=== PATIENT | male | born 1935 | race Caucasian/White ===

== ENCOUNTER 2020-01-30 13:50 | Inpatient (IN) | payer MEDICARE, OTHER ==
[~2020-01-30] VITALS: Ht 172.7 cm; Wt 78.7 kg
[2020-01-30] MEDS ORDERED: 0.9 % SODIUM CHLORIDE 10 ML DISP.SYRIN. IV PRN (14:30)
[2020-01-30] MEDS ORDERED: IV NORMAL SALINE 1,000ML 1,000 ML IV ONE ×3 (14:30→16:45)
[2020-01-30] MEDS ORDERED: ONDANSETRON PF 4 MG/2 ML VIAL. IVP ONE (14:30)
[2020-01-30] MEDS ORDERED: FAMOTIDINE 20 MG/2 ML VIAL IVP ONE (14:30)
--- NOTE | 2020-01-30 14:37 | PHYS DOC ---
Past History Past Medical History: CAD, Cancer, Dementia, Diverticulitis, Diabetes, Heart Disease, TIA, Other Additional Past Medical Histor: hyponatremia, prostate cancer, cataracts, alzheimers, shingles. Past Surgical History: Cancer Surgery, Cervical Fusion, Coronary Bypass Surgery, Pacemaker Additional Past Surgical Histo: TURP, pacemaker, vertebroplasty, Alcohol Use: None Adult General Chief Complaint Chief Complaint: DIARRHEA HPI HPI Patient is a 85-year-old male patient with history of CAD with open heart surgery years ago, diabetes type 2, hypertension, diverticulitis, constipation, dementia, who presents to the ED today to be evaluated for weakness, diarrhea and hyponatremia. Patient's daughter is doing most of the pain. Because patient is demented. She states patient fell down last week, he was seen by the PCP and was noted to have hyponatremia. They were able to fix his hyponatremia. He was sent home on he has been weak since then. She also reports patient obsessed about his bowel movements and has been using bowel prep including lactulose. He has had diarrhea since yesterday. Daughter denies patient having any bloody stools. She is concerned with dehydrated. Patient denies any abdominal pain, nausea or vomiting. Review of Systems Review of Systems Constitutional: Reports generalized weakness. Denies fever or chills [] Eyes: Denies change in visual acuity, redness, or eye pain [] HENT: Denies nasal congestion or sore throat [] Respiratory: Denies cough or shortness of breath [] Cardiovascular: No additional information not addressed in HPI [] GI: Reports diarrhea. Denies abdominal pain, nausea, vomiting, bloody stools : Denies dysuria or hematuria [] Musculoskeletal: Denies back pain or joint pain [] Integument: Denies rash or skin lesions [] Neurologic: Denies headache, focal weakness or sensory changes [] All other systems were reviewed and found to be within normal limits, except as documented in this note. Current Medications Current Medications Current Medications Medications (Trade) Dose Ordered Sig/Susy Start Time Stop Time Status Last Admin Dose Admin Famotidine (Pepcid Vial) 20 mg 1X ONCE 01/30/20 14:30 01/30/20 14:31 DC Ondansetron HCl (Zofran) 4 mg 1X ONCE 01/30/20 14:30 01/30/20 14:31 DC Sodium Chloride (Normal Saline Flush) 10 ml QSHIFT PRN 01/30/20 14:30 Allergies Allergies Allergies Coded Allergies Type Severity Reaction Last Updated Verified Penicillins Allergy Unknown 01/30/20 Yes hydrocodone Allergy Unknown 01/30/20 Yes Physical Exam Physical Exam Constitutional: Well developed, well nourished, no acute distress, non-toxic appearance. [] HENT: Normocephalic, atraumatic, bilateral external ears normal, oropharynx moist, no oral exudates, nose normal. [place] Eyes: PERRLA, EOMI, conjunctiva normal, no discharge. [] Neck: Normal range of motion, no tenderness, supple, no stridor. [] Cardiovascular: Old healed surgical incision noted midline chest. Heart rate regular rhythm Lungs & Thorax: Rales to posterior lung bases Abdomen: Bowel sounds normal, soft, rounded distended abdomen, hyperresonance, no tenderness, no masses, no pulsatile masses. [] Skin: Warm, dry, no erythema, no rash. [] Back: No tenderness, no CVA tenderness. [] Extremities: No tenderness, no cyanosis, no clubbing, ROM intact, no edema. [] Neurologic: Alert and oriented X 2-3, normal motor function, normal sensory function, no focal deficits noted. [] Psychologic: Affect normal, judgement normal, mood normal. [] Current Patient Data Vital Signs Vital Signs Date Time Temp Pulse Resp B/P (MAP) Pulse Ox O2 Delivery O2 Flow Rate FiO2 01/30/20 14:05 98.0 85 24 176/93 (120) 94 Room Air EKG EKG [] Radiology/Procedures Radiology/Procedures []PROCEDURE: CHEST AP ONLY INDICATION: Reason: weakness / Spl. Instructions: / History: COMPARISON: None. FINDINGS: Single view of chest obtained. Poststernotomy changes with surgical clips at the mediastinum as well as pacemaker. Degenerative changes of the shoulders. Patchy opacities within the bilateral lungs IMPRESSION: * Patchy opacities within the bilateral lungs. Would correlate with symptoms since infectious etiology could have this appearance. Given the interstitial component superimposed mild edema is also not excluded. Electronically signed by: Dorita Ford MD (01/30/2020 4:41 PM) [id number] DICTATED AND SIGNED BY: DORITA FORD MD DATE: 11/21/20 1641 CC: LUCRECIA DO APRN; DONOVAN LAWTON ~MTH0 0 PROCEDURE: CT ABD PELV W/ IV CONTRST ONLY INDICATION: Reason: distended abd, diarrhea, hx of diverticulitis / Spl. Instructions: OMNI 300 60ML , GFR 45ML / History: . COMPARISON: None. TECHNIQUE: Axial CT images obtained through the abdomen and pelvis with contrast. One or more of the following individualized dose reduction techniques were utilized for this examination: 1. Automated exposure control; 2. Adjustment of the mA and/or kV according to patient size; 3. Use of iterative reconstruction technique. FINDINGS: Groundglass opacities at the lung bases with some peripheral reticulation and interstitial thickening. There is a couple of nodules at the right lung base measuring less than 6 mm. Fat-containing left greater than right inguinal hernia. Severe calcific atherosclerosis. Pacemaker leads at partially visualized chest base. Minimal contrast in the aortic lumen limits evaluation. No intrahepatic bile duct dilation. Gallbladder is contracted. No peripancreatic fluid collection. Spleen unremarkable. Exophytic left renal cyst. Subcentimeter low-density lesion lower pole the left kidney which is a common finding but not well characterized on this exam. Urinary bladder is well distended. Nonspecific perinephric stranding bilaterally. No hydronephrosis. Degenerative changes of the bilateral hips and spine. Colonic diverticulosis. The suspected appendix does not appear dilated. Fat-containing umbilical hernia. Osseous demineralization. Right sixth rib fracture. Compression fracture at T11 with retropulsion and kyphoplasty suspected diverticulum anterior aspect of urinary bladder. IMPRESSION: * No evidence of bowel obstruction or appendicitis. * Colonic diverticulosis without definite adjacent inflammatory changes. * Severe calcific atherosclerosis. * Ground glass and interstitial opacities at lung bases. Could be infectious in nature or secondary to edema. A portion could be chronic as well. * There are couple of lung nodules at the right lung base. * Right sixth rib fracture of unknown age. Fleischner Society recommendations for solitary solid lung nodule follow up.: In a low risk patient: <6mm - No follow up required. 6-8mm - 6-[address], then CT at 18-24 months. >8mm - CT at 3 months, PET/CT or tissue sampling. In a high risk patient (history of smoking or other known risk factors): <6mm - Follow up CT at 12 months. 6-8mm - 6-[address], then CT at 18-24 months. >8mm - CT at 3 months, PET/CT or tissue sampling. Fleischner Society recommendations for multiple solid lung nodule follow up.: In a low risk patient: <6mm - No follow up required. 6-8mm - 3-[address], then CT at 18-24 months. >8mm - CT at 3-6 months, then at 18-24 months. PET/CT or tissue sampling based on most suspicious nodule. In a high risk patient (history of smoking or other known risk factors): <6mm - Follow up CT at 12 months. 6-8mm - 3-[address], then CT at 18-24 months. >8mm - CT at 3-6 months, PET/CT or tissue sampling option based on most suspicious nodule. Electronically signed by: Dorita Ford MD (01/30/2020 4:14 PM) [id number] DICTATED AND SIGNED BY: DORITA FORD MD DATE: 01/30/20 1614 CC: LUCRECIA DO APRN; DONOVAN LAWTON ~MTH0 0 Heart Score Risk Factors: Risk Factors: DM, Current or recent (<one month) smoker, HTN, HLP, family history of CAD, obesity. Risk Scores: Risk Factors: DM, Current or recent (<one month) smoker, HTN, HLP, family history of CAD, obesity. Course & Med Decision Making Course & Med Decision Making Pertinent Labs and Imaging studies reviewed. (See chart for details) This is a 85-year-old male patient with history of dementia presenting to the ED today with a daughter who reports patient fell down last week, was seen by the PCP and diagnosed with hyponatremia. She states patient has been weak since the fall. She states patient has also been using bowel preps for chronic constipation and is currently having loose stools since yesterday. CBC with a normal WBC, hemoglobin 12.0 hematocrit 35.7, unknown if it is patient's baseline. CMP with sodium of 119, creatinine 1.2, BUN 21 glucose 307, patient's sodium corrected for glucose is 122. Lactic 4.3, BNP 5559 He was given a liter of fluid in the ED conservatively because he appears to be already fluid overloaded CT of the abdomen and pelvis was negative for any acute findings, noted for diverticulosis, ground glass and interstitial opacities at lung bases. Could be infectious in nature or secondary to edema, lung nodules at the right lung base and right sixth rib fracture of unknown age. Patient was tested for COVID-19. He was started on Rocephin and azithromycin. Spoke with Dr. Julius Castaneda Disclaimer Leonel Disclaimer This electronic medical record was generated, in whole or in part, using a voice recognition dictation system. Departure Departure: Impression: Primary Impression: Hyponatremia Additional Impressions: Diarrhea Elevated lactic acid level Hyperglycemia Person under investigation for COVID-19 Disposition: ADMITTED INPT THIS HOSP Condition: STABLE Referrals: DONOVAN LAWTON (PCP) Problem Qualifiers Additional Impressions: Diarrhea Diarrhea type: unspecified type Qualified Codes: R19.7 - Diarrhea, unspecified MUTUNGALUCRECIA DRIER ATTENDANT Jan 30, 2020 14:37
--- NOTE | 2020-01-30 14:58 | EKG ---
[facility] ED [facility] [address] [place] [id number] Test Date: 2020-01-30 Test Time: 14:36:27 Pat Name: ASHLEY MUNGUIA Department: Room: Gender: M [employer]: : 1935 Requested By: LUCRECIA DO Order Number: [id number] Reading MD: Measurements Intervals Lynn Rate: 84 P: 90 NM: 310 QRS: 44 QRSD: 94 T: 54 QT: 384 QTc: 457 Interpretive Statements SINUS RHYTHM PROLONGED NM INTERVAL QRS(T) CONTOUR ABNORMALITY CONSISTENT WITH ANTEROSEPTAL INFARCT PROBABLY OLD ABNORMAL ECG RI6.02 No previous ECG available for comparison
[2020-01-30] MEDS ORDERED: IOHEXOL 300 MG/ML 75 ML VIAL. IV ONE (15:00)
[2020-01-30 15:04] LABS: BASO % 0 % (0-3); EOS % 0 % (0-3); HEMATOCRIT 35.7 % (39.0-53.0); LYMPH # 0.5 x10^3/uL (1.0-4.8); LYMPH % 5 % (24-48); MEAN CORPUSCULAR HEMOGLOBIN 30 pg (25-35); MEAN CORPUSCULAR HGB CONC 34 g/dL (31-37); MEAN CORPUSCULAR VOLUME 90 fL (79-100); MONO # 1.7 x10^3/uL (0.0-1.1); MONO % 16 % (0-9); NEUT # 8.3 x10^3uL (1.8-7.7); NEUT % 79 % (31-73); PLATELET COUNT 268 x10^3/uL (140-400); RED BLOOD COUNT 3.99 x10^6/uL (4.30-5.70); RED CELL DISTRIBUTION WIDTH 13.2 % (11.5-14.5); WHITE BLOOD COUNT 10.6 x10^3/uL (4.0-11.0)
[2020-01-30 15:27] LABS: ALBUMIN 2.8 g/dL (3.4-5.0); ALBUMIN/GLOBULIN RATIO 0.7 (1.0-1.7); CALCIUM 8.9 mg/dL (8.5-10.1); CREATININE 1.4 mg/dL (0.7-1.3); GFR 47.9; MAGNESIUM 1.4 mg/dL (1.8-2.4); POTASSIUM 4.9 mmol/L (3.5-5.1); TOTAL BILIRUBIN 0.4 mg/dL (0.2-1.0)
--- NOTE | 2020-01-30 16:17 | RAD ---
INDICATION: Reason: distended abd, diarrhea, hx of diverticulitis / Spl. Instructions: OMNI 300 60ML , GFR 45ML / History: . COMPARISON: None. TECHNIQUE: Axial CT images obtained through the abdomen and pelvis with contrast. One or more of the following individualized dose reduction techniques were utilized for this examination: 1. Automated exposure control; 2. Adjustment of the mA and/or kV according to patient size; 3. Use of iterative reconstruction technique. FINDINGS: Groundglass opacities at the lung bases with some peripheral reticulation and interstitial thickening. There is a couple of nodules at the right lung base measuring less than 6 mm. Fat-containing left greater than right inguinal hernia. Severe calcific atherosclerosis. Pacemaker leads at partially visualized chest base. Minimal contrast in the aortic lumen limits evaluation. No intrahepatic bile duct dilation. Gallbladder is contracted. No peripancreatic fluid collection. Spleen unremarkable. Exophytic left renal cyst. Subcentimeter low-density lesion lower pole the left kidney which is a common finding but not well characterized on this exam. Urinary bladder is well distended. Nonspecific perinephric stranding bilaterally. No hydronephrosis. Degenerative changes of the bilateral hips and spine. Colonic diverticulosis. The suspected appendix does not appear dilated. Fat-containing umbilical hernia. Osseous demineralization. Right sixth rib fracture. Compression fracture at T11 with retropulsion and kyphoplasty suspected diverticulum anterior aspect of urinary bladder. IMPRESSION: * No evidence of bowel obstruction or appendicitis. * Colonic diverticulosis without definite adjacent inflammatory changes. * Severe calcific atherosclerosis. * Ground glass and interstitial opacities at lung bases. Could be infectious in nature or secondary to edema. A portion could be chronic as well. * There are couple of lung nodules at the right lung base. * Right sixth rib fracture of unknown age. Fleischner Society recommendations for solitary solid lung nodule follow up.: In a low risk patient: <6mm - No follow up required. 6-8mm - 6-[address], then CT at 18-24 months. >8mm - CT at 3 months, PET/CT or tissue sampling. In a high risk patient (history of smoking or other known risk factors): <6mm - Follow up CT at 12 months. 6-8mm - 6-[address], then CT at 18-24 months. >8mm - CT at 3 months, PET/CT or tissue sampling. Fleischner Society recommendations for multiple solid lung nodule follow up.: In a low risk patient: <6mm - No follow up required. 6-8mm - 3-[address], then CT at 18-24 months. >8mm - CT at 3-6 months, then at 18-24 months. PET/CT or tissue sampling based on most suspicious nodule. In a high risk patient (history of smoking or other known risk factors): <6mm - Follow up CT at 12 months. 6-8mm - 3-[address], then CT at 18-24 months. >8mm - CT at 3-6 months, PET/CT or tissue sampling option based on most suspicious nodule. Electronically signed by: Bill Krishnamurthy MD (01/30/2020 4:14 PM) [id number]
[2020-01-30 16:31] LABS: % LYMPHS 12 % (24-48); % MONOS 13 % (0-10); % SEGS 75 % (35-66)
[2020-01-30 16:32] LABS: PLT ESTIMATE ADEQUATE (ADEQUATE)
--- NOTE | 2020-01-30 16:44 | RAD ---
INDICATION: Reason: weakness / Spl. Instructions: / History: COMPARISON: None. FINDINGS: Single view of chest obtained. Poststernotomy changes with surgical clips at the mediastinum as well as pacemaker. Degenerative changes of the shoulders. Patchy opacities within the bilateral lungs IMPRESSION: * Patchy opacities within the bilateral lungs. Would correlate with symptoms since infectious etiology could have this appearance. Given the interstitial component superimposed mild edema is also not excluded. Electronically signed by: Bill Krishnamurthy MD (01/30/2020 4:41 PM) [id number]
[2020-01-30] MEDS ORDERED: ACETAMINOPHEN 325 MG TABLET PO PRN (16:45)
[2020-01-30] MEDS ORDERED: ONDANSETRON PF 4 MG/2 ML VIAL. IVP PRN (16:45)
[2020-01-30] MEDS ORDERED: AZITHROMYCIN 500 MG in IV NORMAL SALINE 250ML 250 ML IV ONE (17:15)
[2020-01-30 17:50] VITALS: BP 149/62
[2020-01-30] MEDS ORDERED: GLIM4TAB8 PO (17:56)
[2020-01-30] MEDS ORDERED: METF500T16 PO (17:56)
[2020-01-30] MEDS ORDERED: LOSA25TA PO ×2 (17:56)
[2020-01-30] MEDS ORDERED: ALPR0.254 PO ×2 (17:56)
[2020-01-30] MEDS ORDERED: METO100T7 PO (17:56)
[2020-01-30] MEDS ORDERED: MECO10005 PO (17:56)
[2020-01-30] MEDS ORDERED: ASPI-889 PO (17:56)
[2020-01-30] MEDS ORDERED: PROB500T PO (17:56)
[2020-01-30] MEDS ORDERED: ESCITALOPRAM OX10 MG PO (17:56)
[2020-01-30] MEDS ORDERED: PANT40TA6 PO (17:56)
[2020-01-30] MEDS ORDERED: SITA100T PO (17:56)
[2020-01-30] MEDS ORDERED: FLUT16SP21 NS (17:56)
[2020-01-30] MEDS ORDERED: METO25TA4 PO (17:56)
[2020-01-30] MEDS ORDERED: LACT1CAP6 PO (17:56)
[2020-01-30] MEDS ORDERED: MEMA10TA PO (17:56)
[2020-01-30] MEDS ORDERED: METO50TA6 PO (18:05)
[2020-01-30] MEDS ORDERED: ACET325T9 PO (18:05)
[2020-01-30] MEDS ORDERED: GLIM2TAB7 PO (18:05)
[2020-01-30] MEDS ORDERED: HERB1CAP PO (18:05)
[2020-01-30] MEDS ORDERED: LACT10SO26 PO (18:05)
[2020-01-30] MEDS ORDERED: POLY119P PO (18:05)
--- NOTE | 2020-01-30 18:23 | NUR ---
NSG NOTE; ADMISSION ADMIT TO ROOM 124 AT 1730 FROM ED VIA CART ACCOMP BY EMS PERSONNEL FAMILY STATES PT WEAK, HAS FALLEN, AND HAD DIARRHEA X 24 HOURS PLACED IN AIRBORNE ISOLATION PT WAS S/S PER ED AND WAS COVID 19 SWABBED
[2020-01-30] MEDS ORDERED: DEXTROSE 50% 25 GM / 50ML DISP.SYRIN. IV PRN ×2 (18:30→20:00)
[2020-01-30] MEDS: LACTOBACILLUS RHAMNOSUS GG 1 CAPSULE. PO SCH (21:03)
[2020-01-30] MEDS: MEMANTINE 10 MG TABLET. PO SCH (21:03)
[2020-01-30] MEDS: ALPRAZolam 0.25 MG TABLET PO SCH (21:03)
[2020-01-30] MEDS: METOPROLOL TART IMMED RELEASE 25 MG TABLET. PO SCH (21:04)
[2020-01-30] MEDS: IV NORMAL SALINE 1,000ML 1,000 ML IV SCH (21:43)
[2020-01-30 23:24] VITALS: BP 120/61
[2020-01-31 05:30] VITALS: BP 167/96
[2020-01-31] MEDS: IV NORMAL SALINE 1,000ML 1,000 ML IV SCH ×6 (05:32→20:08)
[2020-01-31 05:57] LABS: BARBITURATES NEG (NEG); BENZODIAZEPINES POS (NEG); CANNABINOIDS NEG (NEG); COCAINE NEG (NEG); METHADONE NEG (NEG); OPIATES NEG (NEG); PHENCYCLIDINE NEG (NEG)
[2020-01-31 06:10] LABS: AMPHETAMINE/METHAMPHETAMINE NEG (NEG)
[2020-01-31 06:12] LABS: BILIRUBIN,URINE NEG (NEG); CLARITY,URINE CLEAR; COLOR,URINE YELLOW; GLUCOSE,URINE 500 mg/dL (NEG)
[2020-01-31 06:13] LABS: BACTERIA,URINE 0 /HPF (0-FEW); NITRITE,URINE NEG (NEG); RBC,URINE 0 /HPF (0-2); SQUAMOUS EPITHELIAL CELL,UR OCC /LPF; UROBILINOGEN,URINE 0.2 mg/dL (0.2 mg/dL); WBC,URINE RARE /HPF (0-4)
--- NOTE | 2020-01-31 06:15 | NUR ---
Pt was confused and climbing out of bed at start of shift. After getting settled in bed he was given his evening medications; during which this nurse found his IV cannula in the bed. Original location of IV was not bleeding, red or edematous. Pt unable to verbalize quality or location of pain but did say "That hurts," while nurse was talking to him. New IV placed in left posterior forearm; wrapped loosely with koban and elastic knit tubing. Normal saline infusion started. Pt slept soundly through the night. Pt able to feed himself applesauce. He also able to follow directions to urinate in urinal for lab sample. Pt immediately went back to sleep afterwards. Will continue to monitor.
[2020-01-31] MEDS: ASPIRIN ENTERIC COATED 81 MG TABLET.DR. PO SCH (09:10)
[2020-01-31] MEDS: METOPROLOL TART IMMED RELEASE 50 MG TABLET PO SCH (09:10)
[2020-01-31] MEDS: MEMANTINE 10 MG TABLET. PO SCH ×2 (09:10→20:07)
[2020-01-31] MEDS: ALPRAZolam 0.25 MG TABLET PO SCH (09:11)
[2020-01-31] MEDS: LACTOBACILLUS RHAMNOSUS GG 1 CAPSULE. PO SCH ×2 (09:11→20:06)
[2020-01-31] MEDS: INSULIN LISPRO 300 UNITS/3 ML VIAL. SQ SCH ×4 (09:12→17:36)
[2020-01-31 09:19] LABS: BASO % 0 % (0-3); EOS % 0 % (0-3); HEMATOCRIT 32.8 % (39.0-53.0); HEMOGLOBIN 10.9 g/dL (13.0-17.5); LYMPH # 0.6 x10^3/uL (1.0-4.8); LYMPH % 7 % (24-48); MEAN CORPUSCULAR HEMOGLOBIN 30 pg (25-35); MEAN CORPUSCULAR HGB CONC 33 g/dL (31-37); MEAN CORPUSCULAR VOLUME 89 fL (79-100); MONO # 1.6 x10^3/uL (0.0-1.1); MONO % 19 % (0-9); NEUT # 6.2 x10^3uL (1.8-7.7); NEUT % 74 % (31-73); PLATELET COUNT 262 x10^3/uL (140-400); RED BLOOD COUNT 3.69 x10^6/uL (4.30-5.70); RED CELL DISTRIBUTION WIDTH 13.4 % (11.5-14.5); WHITE BLOOD COUNT 8.3 x10^3/uL (4.0-11.0)
[2020-01-31 09:37] LABS: ALBUMIN 2.5 g/dL (3.4-5.0); ALBUMIN/GLOBULIN RATIO 0.7 (1.0-1.7); CALCIUM 7.6 mg/dL (8.5-10.1); CREATININE 1.2 mg/dL (0.7-1.3); GFR 57.3; TOTAL BILIRUBIN 0.5 mg/dL (0.2-1.0); TOTAL PROTEIN 6.3 g/dL (6.4-8.2)
[2020-01-31 10:38] VITALS: BP 134/72
[2020-01-31] MEDS ORDERED: MAGNESIUM SULFATE 2GM 50 ML IV ONE (14:15)
[2020-01-31] MEDS ORDERED: DEXTROSE 50% 25 GM / 50ML DISP.SYRIN. IV PRN (14:45)
[2020-01-31 14:51] VITALS: BP 165/90
--- NOTE | 2020-01-31 14:57 | HP ---
ADMIT DATE: HISTORY OF PRESENT ILLNESS: The patient is an 85-year-old male patient who is residing with his at [facility] and was brought to the Emergency Room with a complaint for weakness, diarrhea, and hyponatremia. The patient's daughter is doing most of the explanation. The patient is demented. She states that he fell down last week. He was seen by his primary care physician, was noted to have hyponatremia. They were able to fix his hyponatremia. He was sent home and on his way, has been weak since then. She also reports the patient is obsessed about his bowel movement and has been using bowel prep including lactulose, has had diarrhea since yesterday. Daughter denies patient having any bloody stools. She is concerned that he is dehydrated. He denies any abdominal pain, nausea or vomiting. He was extensively investigated and his lab work obviously confirmed that he has hyponatremia with a serum sodium of 119, although partly dilutional as his blood sugar was high at 307. He was also noted to be on multiple medications that might be causing also hyponatremia including syndrome ____ ADH. He is on losartan. He is on Lexapro and lactulose together with probenecid that I have discontinued. I held also his ClearLax and was admitted. He was given 2 liters of normal saline and started on IV ceftriaxone as well as Zithromax. He was also swabbed for COVID-19. PAST MEDICAL HISTORY: Significant for coronary artery disease, cancer, dementia, diverticulitis, diabetes, TIA. Significant for also hyponatremia, prostate cancer and dementia of Alzheimer type, and history of shingles before. PAST SURGICAL HISTORY: Significant for coronary artery bypass graft surgery, permanent pacemaker placement, vertebroplasty, cervical spine fusion and transurethral resection of the prostate and cancer surgery. ALLERGIES: HE IS ALLERGIC TO PENICILLIN AND HYDROCODONE. MEDICATIONS: He is currently on following medications: He is on metoprolol tartrate 25 mg at bedtime, metoprolol tartrate 50 mg daily. He is on losartan 25 mg daily and losartan potassium 25 mg daily with lunch, aspirin 81 mg once a day, acetaminophen 650 mg every 6 hours, escitalopram oxalate 10 mg daily, alprazolam 0.25 mg every 4 hours, and alprazolam 0.25 mg at bedtime, Namenda 10 mg twice a day, lactulose 15 mL daily, probenecid 500 mg daily, Flonase 2 sprays to each nostril once a day, lactobacillus acidophilus 1 capsule twice a day, polyethylene glycol 17 grams daily p.r.n. for constipation, Protonix 40 mg twice a day, metformin 500 mg 3 times a day with meals, sitagliptin for Januvia 100 mg once a day, glimepiride 4 mg with breakfast and 2 mg with lunch. He is also on B12 chewable tablet 1000 mcg once a day. He is also on Colon Herbal Cleanser 1 tablet p.o. at bedtime. FAMILY HISTORY: Noncontributory. SOCIAL HISTORY: He lives with his in assisted living facility, apparently does not smoke, drink alcohol or use recreational drugs. His daughter is his DPOA. PHYSICAL EXAMINATION: GENERAL: On arrival to the Emergency Room, he looked well and was clearly in no apparent respiratory distress. There was no pallor, jaundice, cyanosis, or thyromegaly. No jugular venous distension. No limb edema. VITAL SIGNS: His heart rate was 85, blood pressure was 176/93, temperature was 98, respiratory rate 24 and oxygen saturation was 94% on room air. HEAD, EYES, EARS, NOSE AND THROAT: Normocephalic, atraumatic. NECK: Supple. HEART: Normal first and second heart sounds. No gallop, rub or murmur. CHEST: Clear to auscultation. No rhonchi. He actually has bilateral basal crepitation. ABDOMEN: Distended, soft, nontender. No guarding or rigidity. No organomegaly. All hernial orifice intact. Bowel sounds normal. NEUROLOGIC: He is apparently demented, but without any obvious lateralizing sign. All his cranial nerves are intact. EXTREMITIES: He moves extremities without difficulty. LABORATORY WORK: Showed a white cell count of 10,600, hemoglobin 12, hematocrit 35.7, MCV 90 and platelet count 268,000 with normal manual differential. His chemistry showed a serum sodium of 119, potassium 4.9, chloride 86, bicarbonate 19, anion gap of 14, BUN 21, creatinine 1.4, estimated GFR was 47 mL per minute. His glucose was 307, calcium was 8.9, magnesium was 1.4. Total bilirubin, AST, ALT, alkaline phosphatase were normal. His beta natriuretic peptide was 5559. Total protein 7, albumin 2.8. His prothrombin time, INR and aPTT are normal. Urinalysis was essentially unremarkable and is drug toxic screen is positive for benzodiazepine. IMAGING DATA: He has had chest x-ray, which showed patchy opacities within the bilateral lung, would correlate with symptoms since infectious etiology could have this appearance given the interstitial component, superimposed mild edema is also not excluded. He has had a CT scan of the abdomen and pelvis, which basically showed that the patient has no evidence of bowel obstruction or appendicitis, colonic diverticulosis without definite adjacent inflammatory changes, severe calcific atherosclerosis ground glass and interstitial opacities at lung bases, could be infectious in nature or secondary to edema, portion could be chronic as well. There are couple of lung nodules at the right lung base, right 6th rib fracture of unknown age. ASSESSMENT AND PLAN: The patient therefore was admitted with severe hyponatremia, lactic acidosis, hyperglycemia and questionable COVID-19 infection. He was kept on droplet precaution. I held some of the medication that might be contributing to his hyponatremia and I held also his losartan, Lexapro, lactulose as well as metformin. I will continue treatment with switching him to insulin as long as he is here in the hospital and then we will switch him back to his oral medication. His troponin was elevated at 0.042, second one 0.085, and the third one 0.087. We will consult the commodity specialist and it showed that he is a candidate for any intervention given his age and comorbidities. I did start him also on normal saline at 150 mL per hour. We will monitor his labs closely and if the sodium continue to improve, we will continue; otherwise, we might have to consider fluid restriction. RAGHAVENDRA ORTIZ MD DR: ANTHONY/luis m JOB#: [id number] / [id number]
[2020-01-31] MEDS: AZITHROMYCIN 250 MG TABLET. PO SCH (17:35)
[2020-01-31 18:50] VITALS: BP 172/90
[2020-01-31] MEDS: ALPRAZolam 0.25 MG TABLET PO PRN (20:06)
[2020-01-31] MEDS: METOPROLOL TART IMMED RELEASE 25 MG TABLET. PO SCH (20:07)
--- NOTE | 2020-01-31 20:37 | PN ---
DATE: 01/31/2020 SUBJECTIVE: The patient is resting, slightly propped up in bed, in no apparent respiratory distress. He is awake, alert, complaining of chest pain, abdominal pain. PHYSICAL EXAMINATION: GENERAL: When I examined him, he looked pale, but no jaundice, cyanosis or thyromegaly. No jugular venous distention. No limb edema. VITAL SIGNS: His heart rate was 88, blood pressure was 134/72, his temperature was 99, respiratory rate was 22 and oxygen saturation was 98% on 2 liters of oxygen. HEAD, EYES, EARS, NOSE AND THROAT: Showed normocephalic, atraumatic. NECK: Supple. HEART: Normal first and second heart sounds. No gallop, rub or murmur. CHEST: Clear to auscultation. No crepitation or rhonchi. ABDOMEN: Distended, soft, nontender. No guarding or rigidity. No organomegaly. All hernial orifice intact. Bowel sounds normal. NEUROLOGIC: He was awake, alert, responding appropriately. All cranial nerves are intact. He moves extremities without difficulty. He apparently ambulates with a walker. His intake over the last 24 hours was incompletely recorded. LABORATORY DATA: Hid lab work this morning showed a white cell count of 8300, hemoglobin 11, hematocrit 33, MCV 89 and platelet count of 262,000. Serum sodium this morning was up to 126, potassium 4, chloride 94, bicarbonate 20, anion gap of 12, BUN 18, creatinine 1.2, estimated GFR was 57 mL per minute. His glucose was 154, calcium was 7.9. Total bilirubin, AST, ALT, alkaline phosphatase were normal. Total protein 6.3, albumin 2.5. ASSESSMENT: Severe hyponatremia, multifactorial. The patient has diarrhea. He is obsessed with his bowel and his multiple stimulant and laxatives. He is also on Lexapro. He has also lactic acidosis, likely due to metformin. His blood sugar is suboptimally controlled and obviously he is under investigation for COVID-19. PLAN: My plan is to continue with IV antibiotic. Continue with IV fluid and all his other medications. I will adjust his insulin and also consult Physical and Occupational Therapy. His coronavirus PCR is still pending at the time of this dictation. RAGHAVENDRA ORTIZ MD DR: ANTHONY/luis m JOB#: [id number] / [id number]
[2020-01-31] MEDS: INSULIN GLARGINE SYRINGE. SQ SCH (20:42)
[2020-01-31 22:45] VITALS: BP 156/86
[2020-02-01] VITALS (7 sets, daily range): BP systolic 145–192; BP diastolic 10–111
--- NOTE | 2020-02-01 04:30 | NUR ---
Pt was confused, attempting to climbing out of bed at change of shift to urinate. Pt was already incont of urine, assisted into dry pull-up and helped back into bed. Pt refused HS snack but took HS medications without difficulty. Pt slept soundly during night, only getting up to pee twice during night (setting off bed alarm) and then assisted back into bed. Pt independent with turning in bed but pillow placed under heels to help keep off bed.
[2020-02-01 06:33] LABS: HEMATOCRIT 32.2 % (39.0-53.0); HEMOGLOBIN 11.3 g/dL (13.0-17.5); RED BLOOD COUNT 3.61 x10^6/uL (4.30-5.70); RED CELL DISTRIBUTION WIDTH 13.4 % (11.5-14.5); WHITE BLOOD COUNT 8.9 x10^3/uL (4.0-11.0)
[2020-02-01 06:38] LABS: ALBUMIN 2.5 g/dL (3.4-5.0); ALBUMIN/GLOBULIN RATIO 0.6 (1.0-1.7); CALCIUM 7.8 mg/dL (8.5-10.1); CREATININE 1.1 mg/dL (0.7-1.3); GFR 63.3; MAGNESIUM 1.8 mg/dL (1.8-2.4); POTASSIUM 3.7 mmol/L (3.5-5.1); TOTAL BILIRUBIN 0.3 mg/dL (0.2-1.0); TOTAL PROTEIN 6.7 g/dL (6.4-8.2)
[2020-02-01] MEDS: INSULIN LISPRO 300 UNITS/3 ML VIAL. SQ SCH ×6 (07:47→16:55)
[2020-02-01] MEDS: LACTOBACILLUS RHAMNOSUS GG 1 CAPSULE. PO SCH ×2 (07:51→20:52)
[2020-02-01] MEDS: MEMANTINE 10 MG TABLET. PO SCH ×2 (07:51→20:53)
[2020-02-01] MEDS: AZITHROMYCIN 250 MG TABLET. PO SCH (07:51)
[2020-02-01] MEDS: ASPIRIN ENTERIC COATED 81 MG TABLET.DR. PO SCH (07:51)
[2020-02-01] MEDS: METOPROLOL TART IMMED RELEASE 50 MG TABLET PO SCH (07:51)
--- NOTE | 2020-02-01 08:31 | PDOC2 ---
CARDIAC CONSULT DATE OF CONSULT DOS: DATE: 02/01/20 TIME: 08:27 REASON FOR CONSULT Reason for Consult Elevated troponin REFERRING PHYSICIAN Referring Physician Dr. Madrid SOURCE Source: Chart review, Patient HPI History of Present Illness This is a 85 yo male who presented secondary to weakness, diarrhea, and hyponatremia. Is currently PUI with COVID pending. Is from [facility]. Complains of shortness of breath. No chest pain, palpitations, or dizziness. PAST MEDICAL HISTORY Cardiovascular: CAD, HTN, hyperipidemia CENTRAL NERVOUS SYSTEM: Dementia Psych: Anxiety, Depression Musculoskeletal: Osteoarthritis Endocrine: Diabetes PAST SURGICAL HISTORY Past Surgical History: CABG, Pacemaker, Other (verteobroplasty ) FAMILY HISTORY Family History: Other (noncontributory to age ) SOCIAL HISTORY Smoke: No ALCOHOL: none Drugs: None Lives: Alone ([facility]) CURRENT MEDICATIONS Current Medications Current Medications Sodium Chloride 1,000 ml @ 1,000 mls/hr 1X ONCE IV Last administered on 01/30/20at 14:52; Start 01/30/20 at 14:30; Stop 01/30/20 at 15:29; Status DC Sodium Chloride (Normal Saline Flush) 10 ml QSHIFT PRN IV AFTER MEDS AND BLOOD DRAWS; Start 01/30/20 at 14:30 Famotidine (Pepcid Vial) 20 mg 1X ONCE IVP Last administered on 01/30/20at 14:54; Start 01/30/20 at 14:30; Stop 01/30/20 at 14:31; Status DC Ondansetron HCl (Zofran) 4 mg 1X ONCE IVP Last administered on 01/30/20at 14:54; Start 01/30/20 at 14:30; Stop 01/30/20 at 14:31; Status DC Iohexol (Omnipaque 300 Mg/ml) 75 ml 1X ONCE IV Last administered on 01/30/20at 15:00; Start 01/30/20 at 15:00; Stop 01/30/20 at 15:01; Status DC Sodium Chloride 1,000 ml @ 1,000 mls/hr 1X ONCE IV ; Start 01/30/20 at 15:45; Stop 01/30/20 at 17:06; Status DC Ondansetron HCl (Zofran) 4 mg PRN Q4HRS PRN IVP NAUSEA/VOMITING; Start 01/30/20 at 16:45; Stop 01/31/20 at 16:44; Status DC Acetaminophen (Tylenol) 650 mg PRN Q4HRS PRN PO FEVER > 100.3'F Last administered on 01/30/20at 21:04; Start 01/30/20 at 16:45; Stop 01/31/20 at 16:44; Status DC Sodium Chloride 1,000 ml @ 75 mls/hr 1X ONCE IV ; Start 01/30/20 at 16:45; Stop 01/30/20 at 17:06; Status DC Azithromycin 500 mg/Sodium Chloride 250 ml @ 250 mls/hr 1X ONCE IV Last administered on 01/30/20at 21:43; Start 01/30/20 at 17:15; Stop 01/30/20 at 18:14; Status DC Ceftriaxone Sodium 1 gm/ Sodium Chloride 50 ml @ 100 mls/hr 1X ONCE IV Last administered on 01/30/20at 22:45; Start 01/30/20 at 17:15; Stop 01/30/20 at 17:44; Status DC Dextrose (Dextrose 50%-Water Syringe) 12.5 gm PRN Q15MIN PRN IV SEE COMMENTS; Start 01/30/20 at 18:30; Stop 01/31/20 at 10:16; Status DC Alprazolam (Xanax) 0.25 mg HS PO Last administered on 01/31/20at 09:11; Start 01/30/20 at 21:00 Aspirin (Aspirin Enteric Coated) 81 mg DAILY PO Last administered on 02/01/20at 07:51; Start 01/31/20 at 09:00 Memantine (Namenda) 10 mg BID PO Last administered on 02/01/20at 07:51; Start 01/30/20 at 21:00 Metoprolol Tartrate (Lopressor) 50 mg DAILY PO Last administered on 02/01/20at 07:51; Start 01/31/20 at 09:00 Lactobacillus Rhamnosus (Culturelle) 1 cap BID PO Last administered on at 07:51; Start 01/30/20 at 21:00 Alprazolam (Xanax) 0.25 mg PRN Q4HRS PRN PO ANXIETY Last administered on 01/31/20at 20:06; Start 01/30/20 at 20:00 Metoprolol Tartrate (Lopressor) 25 mg HS PO Last administered on 01/31/20at 20:07; Start 01/30/20 at 21:00 Insulin Human Lispro (HumaLOG) 0-7 UNITS TIDWMEALS SQ Last administered on 01/31/20at 11:51; Start 01/31/20 at 08:00; Stop 01/31/20 at 14:35; Status DC Dextrose (Dextrose 50%-Water Syringe) 12.5 gm PRN Q15MIN PRN IV SEE COMMENTS; Start 01/30/20 at 20:00 Sodium Chloride 1,000 ml @ 100 mls/hr Q10H IV Last administered on 01/31/20at 20:08; Start 01/30/20 at 20:00 Magnesium Sulfate 50 ml @ 25 mls/hr 1X ONCE IV Last administered on 01/31/20at 15:27; Start 01/31/20 at 14:15; Stop 01/31/20 at 16:14; Status DC Insulin Human Lispro (HumaLOG) 10 units TIDAC SQ Last administered on 02/01/20at 07:47; Start 01/31/20 at 16:30 Insulin Human Lispro (HumaLOG) 0-5 UNITS TIDWMEALS SQ ; Start 01/31/20 at 17:00 Dextrose (Dextrose 50%-Water Syringe) 12.5 gm PRN Q15MIN PRN IV SEE COMMENTS; Start 01/31/20 at 14:45; Stop 01/31/20 at 14:52; Status DC Insulin Glargine (Lantus Syringe) 10 unit QHS SQ Last administered on 01/31/20at 20:42; Start 01/31/20 at 21:00 Ceftriaxone Sodium 1 gm/ Sodium Chloride 50 ml @ 100 mls/hr Q24H IV Last administered on 01/31/20at 17:35; Start 01/31/20 at 15:00 Azithromycin (Zithromax) 250 mg DAILY PO Last administered on 02/01/20at 07:51; Start 01/31/20 at 16:00 Active Scripts Active Reported Clearlax (Polyethylene Glycol 3350) 119 Gm Powder 119 Gm PO DAILY PRN Colon Herbal Cleanser (Herbal Drugs) 1 Each Capsule 1 Each PO HS Lactulose 10 Gm/15 Ml Solution 15 Ml PO DAILY PRN Tylenol (Acetaminophen) 325 Mg Tablet 2 Tab PO Q6HRS PRN Metoprolol Tartrate 50 Mg Tablet 1 Tab PO DAILY Glimepiride 2 Mg Tablet 2.5 Tab PO DAILYWLUN Fluticasone Propionate Nasal Calvert (Fluticasone Propionate) 16 Gm Calvert.susp 2 Spr NS DAILY Alprazolam 0.25 Mg Tablet 1 Tab PO HS Alprazolam 0.25 Mg Tablet 0.25 Mg PO Q4HRS PRN Aspirin Ec (Aspirin) 81 Mg Tablet.dr 1 Tab PO DAILY B12 Active (Mecobalamin) 1,000 Mcg Tab.chew 1,000 Mcg PO DAILY Cozaar (Losartan Potassium) 25 Mg Tablet 25 Mg PO DAILYWLUN Januvia (Sitagliptin Phosphate) 100 Mg Tablet 1 Tab PO DAILY Cozaar (Losartan Potassium) 25 Mg Tablet 25 Mg PO DAILY Probenecid 500 Mg Tablet 500 Mg PO DAILY Metoprolol Tartrate 25 Mg Tablet 1 Tab PO HS Glimepiride 4 Mg Tablet 1 Tab PO DAILYWBKFT Metformin Hcl 500 Mg Tablet 1 Tab PO TIDWMEALS Probiotic (Lactobacillus Acidophilus) 1 Each Capsule 1 Cap PO BID Escitalopram Oxalate 10 Mg Tablet 1 Tab PO DAILY Pantoprazole Sodium 40 Mg Tablet.dr 1 Tab PO BIDBFRMEAL Namenda (Memantine Hcl) 10 Mg Tablet 1 Tab PO BID ALLERGIES Allergies: Coded Allergies: Penicillins (Verified Allergy, Unknown, 01/30/20) hydrocodone (Verified Allergy, Unknown, 01/30/20) ROS Review of Systems 14 point ROS conducted with pertinent positives noted above in HPI PHYSICAL EXAM General: Alert, Cooperative, No acute distress HEENT: Atraumatic Lungs: Other (on NC) Heart: Regular rate Abdomen: Soft Extremities: No edema Skin: No breakdown Neuro: Normal speech, Sensation intact Psych/Mental Status: Mood NL MUSCULOSKELETAL: Osteoarthritic changes both hands VITALS Vital Signs Vital Signs Date Time Temp Pulse Resp B/P (MAP) Pulse Ox O2 Delivery O2 Flow Rate FiO2 02/01/20 07:51 85 173/90 02/01/20 05:30 98.0 22 96 Nasal Cannula 2.0 LABS LABS Laboratory Tests Test 01/30/20 14:30 01/30/20 18:45 01/30/20 20:18 01/30/20 22:45 White Blood Count 10.6 x10^3/uL (4.0-11.0) Red Blood Count 3.99 x10^6/uL (4.30-5.70) Hemoglobin 12.0 g/dL (13.0-17.5) Hematocrit 35.7 % (39.0-53.0) Mean Corpuscular Volume 90 fL (79-100) Mean Corpuscular Hemoglobin 30 pg (25-35) Mean Corpuscular Hemoglobin Concent 34 g/dL (31-37) Red Cell Distribution Width 13.2 % (11.5-14.5) Platelet Count 268 x10^3/uL (140-400) Neutrophils (%) (Auto) 79 % (31-73) Lymphocytes (%) (Auto) 5 % (24-48) Monocytes (%) (Auto) 16 % (0-9) Eosinophils (%) (Auto) 0 % (0-3) Basophils (%) (Auto) 0 % (0-3) Neutrophils # (Auto) 8.3 x10^3uL (1.8-7.7) Lymphocytes # (Auto) 0.5 x10^3/uL (1.0-4.8) Monocytes # (Auto) 1.7 x10^3/uL (0.0-1.1) Eosinophils # (Auto) 0.0 x10^3/uL (0.0-0.7) Basophils # (Auto) 0.0 x10^3/uL (0.0-0.2) Segmented Neutrophils % 75 % (35-66) Lymphocytes % 12 % (24-48) Monocytes % 13 % (0-10) Platelet Estimate Adequate (ADEQUATE) Prothrombin Time 10.8 SEC (9.4-11.4) Prothromb Time International Ratio 1.0 (0.9-1.1) Activated Partial Thromboplast Time 30 SEC (23-33) Sodium Level 119 mmol/L (136-145) Potassium Level 4.9 mmol/L (3.5-5.1) Chloride Level 86 mmol/L (98-107) Carbon Dioxide Level 19 mmol/L (21-32) Anion Gap 14 (6-14) Blood Urea Nitrogen 21 mg/dL (8-26) Creatinine 1.4 mg/dL (0.7-1.3) Estimated GFR (Cockcroft-Gault) 47.9 BUN/Creatinine Ratio 15 (6-20) Glucose Level 307 mg/dL (70-99) Lactic Acid Level 4.2 mmol/L (0.4-2.0) 2.2 mmol/L (0.4-2.0) Calcium Level 8.9 mg/dL (8.5-10.1) Magnesium Level 1.4 mg/dL (1.8-2.4) Total Bilirubin 0.4 mg/dL (0.2-1.0) Aspartate Amino Transf (AST/SGOT) 24 U/L (15-37) Alanine Aminotransferase (ALT/SGPT) 22 U/L (16-63) Alkaline Phosphatase 85 U/L (46-116) Creatine Kinase 88 U/L (39-308) Creatine Kinase MB (Mass) 2.6 ng/mL (0.0-3.6) Creatine Kinase MB Relative Index 3.0 % (0-4) Troponin I Quantitative 0.042 ng/mL (0-0.055) 0.085 ng/mL (0-0.055) 0.087 ng/mL (0-0.055) HI-Zar-N-Type Natriuretic Peptide 5559 pg/mL (0-449) Total Protein 7.0 g/dL (6.4-8.2) Albumin 2.8 g/dL (3.4-5.0) Albumin/Globulin Ratio 0.7 (1.0-1.7) Lipase 77 U/L (73-393) Thyroid Stimulating Hormone (TSH) 2.602 uIU/mL (0.358-3.740) Glucose (Fingerstick) 259 mg/dL (70-99) Test 01/31/20 05:35 01/31/20 08:57 01/31/20 09:00 01/31/20 11:33 Urine Collection Type Unknown Urine Color Yellow Urine Clarity Clear Urine pH 6.5 Urine Specific [place] 1.020 Urine Protein 100 mg/dl (NEG-TRACE) Urine Glucose (UA) 500 mg/dL (NEG) Urine Ketones (Stick) Neg mg/dL (NEG) Urine Blood Neg (NEG) Urine Nitrite Neg (NEG) Urine Bilirubin Neg (NEG) Urine Urobilinogen Dipstick 0.2 mg/dL (0.2 mg/dL) Urine Leukocyte Esterase Neg (NEG) Urine RBC 0 /HPF (0-2) Urine WBC Rare /HPF (0-4) Urine Squamous Epithelial Cells Occ /LPF Urine Bacteria 0 /HPF (0-FEW) Urine Opiates Screen Neg (NEG) Urine Methadone Screen Neg (NEG) Urine Barbiturates Neg (NEG) Urine Phencyclidine Screen Neg (NEG) Urine Amphetamine/Methamphetamine Neg (NEG) Urine Benzodiazepines Screen Pos (NEG) Urine Cocaine Screen Neg (NEG) Urine Cannabinoids Screen Neg (NEG) Urine Ethyl Alcohol Neg (NEG) Glucose (Fingerstick) 236 mg/dL (70-99) 257 mg/dL (70-99) White Blood Count 8.3 x10^3/uL (4.0-11.0) Red Blood Count 3.69 x10^6/uL (4.30-5.70) Hemoglobin 10.9 g/dL (13.0-17.5) Hematocrit 32.8 % (39.0-53.0) Mean Corpuscular Volume 89 fL (79-100) Mean Corpuscular Hemoglobin 30 pg (25-35) Mean Corpuscular Hemoglobin Concent 33 g/dL (31-37) Red Cell Distribution Width 13.4 % (11.5-14.5) Platelet Count 262 x10^3/uL (140-400) Neutrophils (%) (Auto) 74 % (31-73) Lymphocytes (%) (Auto) 7 % (24-48) Monocytes (%) (Auto) 19 % (0-9) Eosinophils (%) (Auto) 0 % (0-3) Basophils (%) (Auto) 0 % (0-3) Neutrophils # (Auto) 6.2 x10^3uL (1.8-7.7) Lymphocytes # (Auto) 0.6 x10^3/uL (1.0-4.8) Monocytes # (Auto) 1.6 x10^3/uL (0.0-1.1) Eosinophils # (Auto) 0.0 x10^3/uL (0.0-0.7) Basophils # (Auto) 0.0 x10^3/uL (0.0-0.2) Sodium Level 126 mmol/L (136-145) Potassium Level 4.0 mmol/L (3.5-5.1) Chloride Level 94 mmol/L (98-107) Carbon Dioxide Level 20 mmol/L (21-32) Anion Gap 12 (6-14) Blood Urea Nitrogen 18 mg/dL (8-26) Creatinine 1.2 mg/dL (0.7-1.3) Estimated GFR (Cockcroft-Gault) 57.3 BUN/Creatinine Ratio 15 (6-20) Glucose Level 254 mg/dL (70-99) Calcium Level 7.6 mg/dL (8.5-10.1) Total Bilirubin 0.5 mg/dL (0.2-1.0) Aspartate Amino Transf (AST/SGOT) 22 U/L (15-37) Alanine Aminotransferase (ALT/SGPT) 23 U/L (16-63) Alkaline Phosphatase 66 U/L (46-116) Total Protein 6.3 g/dL (6.4-8.2) Albumin 2.5 g/dL (3.4-5.0) Albumin/Globulin Ratio 0.7 (1.0-1.7) Test 01/31/20 16:32 01/31/20 20:11 02/01/20 06:05 Glucose (Fingerstick) 129 mg/dL (70-99) 128 mg/dL (70-99) White Blood Count 8.9 x10^3/uL (4.0-11.0) Red Blood Count 3.61 x10^6/uL (4.30-5.70) Hemoglobin 11.3 g/dL (13.0-17.5) Hematocrit 32.2 % (39.0-53.0) Mean Corpuscular Volume 89 fL (79-100) Mean Corpuscular Hemoglobin 31 pg (25-35) Mean Corpuscular Hemoglobin Concent 35 g/dL (31-37) Red Cell Distribution Width 13.4 % (11.5-14.5) Platelet Count 272 x10^3/uL (140-400) Sodium Level 127 mmol/L (136-145) Potassium Level 3.7 mmol/L (3.5-5.1) Chloride Level 93 mmol/L (98-107) Carbon Dioxide Level 21 mmol/L (21-32) Anion Gap 13 (6-14) Blood Urea Nitrogen 14 mg/dL (8-26) Creatinine 1.1 mg/dL (0.7-1.3) Estimated GFR (Cockcroft-Gault) 63.3 BUN/Creatinine Ratio 13 (6-20) Glucose Level 125 mg/dL (70-99) Calcium Level 7.8 mg/dL (8.5-10.1) Magnesium Level 1.8 mg/dL (1.8-2.4) Total Bilirubin 0.3 mg/dL (0.2-1.0) Aspartate Amino Transf (AST/SGOT) 27 U/L (15-37) Alanine Aminotransferase (ALT/SGPT) 27 U/L (16-63) Alkaline Phosphatase 71 U/L (46-116) Total Protein 6.7 g/dL (6.4-8.2) Albumin 2.5 g/dL (3.4-5.0) Albumin/Globulin Ratio 0.6 (1.0-1.7) ASSESSMENT/PLAN Assessment/Plan 1. Weakness 2. Accelerated hypertension; remains elevated 3. Acute on chronic CHF 4. Mild troponin elevation; highest 0.087. Most probable type II, demand ischemia 5. CAD s/p CABG. CP free 6. Hyperlipidemia; LDL 65 7. Diabetes, II 8. Hyponatremia; improved s/p IVFs 9. Lactic acidosis 10. Anxiety, depression 11. Dementia 12. PUI; COVID pending Recommendations ASA therapy Repeat trop Add amlodipine for BP control Discontinue IVFs Will give dose of IV Lasix Await DARBY MOSES APRN Feb 01, 2020 08:31
[2020-02-01] MEDS ORDERED: FUROSEMIDE 40 MG/4 ML VIAL IVP ONE (09:00)
[2020-02-01] MEDS ORDERED: POTASSIUM CHLORIDE 20 MEQ TABLET.ER. PO ONE (09:00)
[2020-02-01] MEDS ORDERED: LISINOPRIL 10 MG TABLET PO SCH (09:00)
[2020-02-01] MEDS: ALPRAZolam 0.25 MG TABLET PO PRN (09:20)
[2020-02-01] MEDS: amLODIPine BESYLATE 5 MG TABLET PO SCH (09:21)
[2020-02-01] MEDS: ALPRAZolam 0.25 MG TABLET PO SCH (20:52)
[2020-02-01] MEDS: ENOXAPARIN 40 MG/0.4 ML SYRINGE. SQ SCH (20:53)
[2020-02-01] MEDS: METOPROLOL TART IMMED RELEASE 25 MG TABLET. PO SCH (20:53)
[2020-02-01] MEDS: INSULIN GLARGINE SYRINGE. SQ SCH (21:00)
--- NOTE | 2020-02-01 21:28 | PN ---
DATE: 02/01/2020 SUBJECTIVE: The patient is resting, almost flat in bed, in no apparent distress. He continued to have some chest discomfort, but denied any abdominal pain. He was in fact seemed to be very comfortable, in no apparent distress. He was pale, but no jaundice or cyanosis. No lymphadenopathy, no thyromegaly. No jugular venous distention. No lower limb edema. OBJECTIVE: VITAL SIGNS: His heart rate was 86, blood pressure was 145/99, temperature was 97.6, respiratory rate was 20, and oxygen saturation was 96% on 2 liters of oxygen. HEAD, EYES, EARS, NOSE AND THROAT: Showed normocephalic, atraumatic. NECK: Supple. HEART: Showed normal first and second heart sounds. No gallop, rub or murmur. CHEST: Clear to auscultation. No crepitation or rhonchi. ABDOMEN: Distended, soft, nontender. NEUROLOGIC: He is demented, but without any obvious lateralizing sign. His intake was 1717, no output was recorded. LABORATORY DATA: His lab work this morning showed a white cell count of 8900, hemoglobin 11, hematocrit 32, MCV 89 and platelet count 272,000. His serum sodium was 127, potassium 3.7, chloride 93, bicarbonate 21, anion gap of 13, BUN 14, creatinine 1.1, estimated GFR was 63 mL per minute. His glucose 125. His calcium was 7.8, magnesium was 1.8. Total bilirubin, AST, ALT, alkaline phosphatase were normal. His total protein 6.7, albumin was 2.5. His fasting lipid profile showed his serum triglycerides of 64, total cholesterol 120, LDL cholesterol was 65, VLDL was 12, and HDL was 43 and the ratio was 2. His TSH was normal at 2.607. He has 3 sets of cardiac enzymes that were steadily rising. We did consult the alterations workroom clerk. ASSESSMENT: 1. Severe hyponatremia, multifactorial, improving slowly. Apparently, the patient has had diarrhea. He is obsessed to his bowel and his multiple stimulants and laxatives. He also on Lexapro. 2. Lactic acidosis, likely due to metformin. 3. His blood sugar was suboptimally controlled. 4. His coronavirus by PCR was positive. PLAN: Plan is obviously to continue with IV antibiotic in the form of Zithromax and ceftriaxone. Continue with all his other medications. His IV fluids were discontinued. We will continue to monitor his blood sugar and adjust insulin as needed. Apparently, he is known to have acute on chronic congestive heart failure, coronary artery disease, status post coronary artery bypass graft, hyperlipidemia, type 2 diabetes seems to be much better controlled. Plan is to continue with his current medications. His IV fluids were discontinued by the alterations workroom clerk. Amlodipine was added to control his blood sugar. If his blood sugar continued to be getting much lower, we might have to cut down his Lantus to perhaps like 5 units or so. I will probably restart all his oral hypoglycemic agents tomorrow. RAGHAVENDRA ORTIZ MD DR: ANTHONY/luis m JOB#: [id number] / [id number]
[2020-02-02 05:49] LABS: HEMATOCRIT 36.6 % (39.0-53.0); HEMOGLOBIN 12.5 g/dL (13.0-17.5); RED BLOOD COUNT 4.14 x10^6/uL (4.30-5.70); RED CELL DISTRIBUTION WIDTH 12.9 % (11.5-14.5); WHITE BLOOD COUNT 10.4 x10^3/uL (4.0-11.0)
[2020-02-02 06:03] LABS: ALBUMIN 2.6 g/dL (3.4-5.0); ALBUMIN/GLOBULIN RATIO 0.6 (1.0-1.7); CALCIUM 8.2 mg/dL (8.5-10.1); CREATININE 1.1 mg/dL (0.7-1.3); GFR 63.3; POTASSIUM 3.8 mmol/L (3.5-5.1); TOTAL BILIRUBIN 0.7 mg/dL (0.2-1.0); TOTAL PROTEIN 7.1 g/dL (6.4-8.2)
[2020-02-02 06:18] VITALS: BP 177/97
[2020-02-02] MEDS: INSULIN LISPRO 300 UNITS/3 ML VIAL. SQ SCH ×6 (07:30→16:52)
[2020-02-02] MEDS: ENOXAPARIN 40 MG/0.4 ML SYRINGE. SQ SCH ×2 (08:48→20:40)
[2020-02-02] MEDS: MEMANTINE 10 MG TABLET. PO SCH ×2 (08:48→20:39)
[2020-02-02] MEDS: METOPROLOL TART IMMED RELEASE 50 MG TABLET PO SCH (08:48)
[2020-02-02] MEDS: amLODIPine BESYLATE 5 MG TABLET PO SCH (08:49)
[2020-02-02] MEDS: LACTOBACILLUS RHAMNOSUS GG 1 CAPSULE. PO SCH ×2 (08:49→20:39)
[2020-02-02] MEDS: AZITHROMYCIN 250 MG TABLET. PO SCH (08:49)
[2020-02-02] MEDS: ASPIRIN ENTERIC COATED 81 MG TABLET.DR. PO SCH (08:49)
--- NOTE | 2020-02-02 08:54 | PDOC ---
CARDIO Progress Notes Date & Time Date of Service DATE: 02/02/20 TIME: 08:50 Time of Evaluation 08:50 Subjective Notes breathing improved. No chest pain Vitals Vitals Vital Signs Date Time Temp Pulse Resp B/P (MAP) Pulse Ox O2 Delivery O2 Flow Rate FiO2 02/02/20 06:18 97.6 81 24 177/97 (123) 96 Nasal Cannula 2.0 Weight Weight [ ] Input and Output I.O. Intake and Output 02/02/20 07:00 Intake Total 700 ml Output Total 600 ml Balance 100 ml Intake Oral 700 ml Output Urine Total 600 ml # Voids 5 Laboratory Labs Laboratory Tests Test 01/31/20 08:57 01/31/20 09:00 01/31/20 11:33 01/31/20 16:32 Glucose (Fingerstick) 236 mg/dL (70-99) 257 mg/dL (70-99) 129 mg/dL (70-99) White Blood Count 8.3 x10^3/uL (4.0-11.0) Red Blood Count 3.69 x10^6/uL (4.30-5.70) Hemoglobin 10.9 g/dL (13.0-17.5) Hematocrit 32.8 % (39.0-53.0) Mean Corpuscular Volume 89 fL (79-100) Mean Corpuscular Hemoglobin 30 pg (25-35) Mean Corpuscular Hemoglobin Concent 33 g/dL (31-37) Red Cell Distribution Width 13.4 % (11.5-14.5) Platelet Count 262 x10^3/uL (140-400) Neutrophils (%) (Auto) 74 % (31-73) Lymphocytes (%) (Auto) 7 % (24-48) Monocytes (%) (Auto) 19 % (0-9) Eosinophils (%) (Auto) 0 % (0-3) Basophils (%) (Auto) 0 % (0-3) Neutrophils # (Auto) 6.2 x10^3uL (1.8-7.7) Lymphocytes # (Auto) 0.6 x10^3/uL (1.0-4.8) Monocytes # (Auto) 1.6 x10^3/uL (0.0-1.1) Eosinophils # (Auto) 0.0 x10^3/uL (0.0-0.7) Basophils # (Auto) 0.0 x10^3/uL (0.0-0.2) Sodium Level 126 mmol/L (136-145) Potassium Level 4.0 mmol/L (3.5-5.1) Chloride Level 94 mmol/L (98-107) Carbon Dioxide Level 20 mmol/L (21-32) Anion Gap 12 (6-14) Blood Urea Nitrogen 18 mg/dL (8-26) Creatinine 1.2 mg/dL (0.7-1.3) Estimated GFR (Cockcroft-Gault) 57.3 BUN/Creatinine Ratio 15 (6-20) Glucose Level 254 mg/dL (70-99) Calcium Level 7.6 mg/dL (8.5-10.1) Total Bilirubin 0.5 mg/dL (0.2-1.0) Aspartate Amino Transf (AST/SGOT) 22 U/L (15-37) Alanine Aminotransferase (ALT/SGPT) 23 U/L (16-63) Alkaline Phosphatase 66 U/L (46-116) Total Protein 6.3 g/dL (6.4-8.2) Albumin 2.5 g/dL (3.4-5.0) Albumin/Globulin Ratio 0.7 (1.0-1.7) Test 01/31/20 20:11 02/01/20 06:05 02/01/20 11:43 02/01/20 16:33 Glucose (Fingerstick) 128 mg/dL (70-99) 230 mg/dL (70-99) 80 mg/dL (70-99) White Blood Count 8.9 x10^3/uL (4.0-11.0) Red Blood Count 3.61 x10^6/uL (4.30-5.70) Hemoglobin 11.3 g/dL (13.0-17.5) Hematocrit 32.2 % (39.0-53.0) Mean Corpuscular Volume 89 fL (79-100) Mean Corpuscular Hemoglobin 31 pg (25-35) Mean Corpuscular Hemoglobin Concent 35 g/dL (31-37) Red Cell Distribution Width 13.4 % (11.5-14.5) Platelet Count 272 x10^3/uL (140-400) Sodium Level 127 mmol/L (136-145) Potassium Level 3.7 mmol/L (3.5-5.1) Chloride Level 93 mmol/L (98-107) Carbon Dioxide Level 21 mmol/L (21-32) Anion Gap 13 (6-14) Blood Urea Nitrogen 14 mg/dL (8-26) Creatinine 1.1 mg/dL (0.7-1.3) Estimated GFR (Cockcroft-Gault) 63.3 BUN/Creatinine Ratio 13 (6-20) Glucose Level 125 mg/dL (70-99) Calcium Level 7.8 mg/dL (8.5-10.1) Magnesium Level 1.8 mg/dL (1.8-2.4) Total Bilirubin 0.3 mg/dL (0.2-1.0) Aspartate Amino Transf (AST/SGOT) 27 U/L (15-37) Alanine Aminotransferase (ALT/SGPT) 27 U/L (16-63) Alkaline Phosphatase 71 U/L (46-116) Troponin I Quantitative 0.060 ng/mL (0-0.055) Total Protein 6.7 g/dL (6.4-8.2) Albumin 2.5 g/dL (3.4-5.0) Albumin/Globulin Ratio 0.6 (1.0-1.7) Triglycerides Level 64 mg/dL (0-150) Cholesterol Level 120 mg/dL (0-200) LDL Cholesterol, Calculated 65 mg/dL (0-100) VLDL Cholesterol, Calculated 12 mg/dL (0-40) Non-HDL Cholesterol Calculated 77 mg/dL (0-129) HDL Cholesterol 43 mg/dL (40-60) Cholesterol/HDL Ratio 2.0 Test 02/01/20 21:07 02/02/20 05:30 02/02/20 07:05 Glucose (Fingerstick) 131 mg/dL (70-99) 209 mg/dL (70-99) White Blood Count 10.4 x10^3/uL (4.0-11.0) Red Blood Count 4.14 x10^6/uL (4.30-5.70) Hemoglobin 12.5 g/dL (13.0-17.5) Hematocrit 36.6 % (39.0-53.0) Mean Corpuscular Volume 88 fL (79-100) Mean Corpuscular Hemoglobin 30 pg (25-35) Mean Corpuscular Hemoglobin Concent 34 g/dL (31-37) Red Cell Distribution Width 12.9 % (11.5-14.5) Platelet Count 366 x10^3/uL (140-400) Sodium Level 125 mmol/L (136-145) Potassium Level 3.8 mmol/L (3.5-5.1) Chloride Level 89 mmol/L (98-107) Carbon Dioxide Level 24 mmol/L (21-32) Anion Gap 12 (6-14) Blood Urea Nitrogen 13 mg/dL (8-26) Creatinine 1.1 mg/dL (0.7-1.3) Estimated GFR (Cockcroft-Gault) 63.3 BUN/Creatinine Ratio 12 (6-20) Glucose Level 175 mg/dL (70-99) Calcium Level 8.2 mg/dL (8.5-10.1) Total Bilirubin 0.7 mg/dL (0.2-1.0) Aspartate Amino Transf (AST/SGOT) 32 U/L (15-37) Alanine Aminotransferase (ALT/SGPT) 38 U/L (16-63) Alkaline Phosphatase 89 U/L (46-116) Total Protein 7.1 g/dL (6.4-8.2) Albumin 2.6 g/dL (3.4-5.0) Albumin/Globulin Ratio 0.6 (1.0-1.7) Microbiology Micro Microbiology 01/30/20 Blood Culture - Preliminary, Resulted NO GROWTH AFTER 2 DAYS... Physical Exams HEENT: Neck Supple W Full Motion Chest: Symmetric Lungs: Other (on NC) Heart: RRR (SR) Abdomen: Other (non-distended) Extremities: No Edema Neurology: alert, follow commands Assessment Assessment 1. Acute respiratory failure with COVID and CHF 2. Accelerated hypertension; remains elevated 3. Acute on chronic CHF 4. Mild troponin elevation; peak 0.087. Most probable type II, demand ischemia in the setting of COVID 5. CAD s/p CABG. CP free 6. Hyperlipidemia; LDL 65 7. Diabetes, II 8. Hyponatremia; improved s/p IVFs 9. Lactic acidosis 10. Anxiety, depression 11. Dementia 12. PUI; COVID positive Recommendations ASA therapy Increase amlodipine for BP control Outpatient echo when recovered from COVID Monitor Na level Ongoing lung optimization, treatment of COVID DARBY LO CONVEYOR MONITOR Feb 02, 2020 08:54
[2020-02-02 10:15] VITALS: BP 151/79
[2020-02-02 14:57] VITALS: BP 144/80
[2020-02-02] MEDS ORDERED: METOPROLOL TART IMMED RELEASE 25 MG TABLET. PO SCH ×2 (16:15→21:00)
--- NOTE | 2020-02-02 17:29 | NUR ---
EOS NOTE-Pt is alert to self et surroundings, but quite confused about situation. He continues to remove nasal cannula, despite repeated reminders. He is pleasant et cooperative with cares. Reports feeling marginally better to Dr Madrid during rounds this afternoon. Will continue to observe et note changes.
[2020-02-02 17:50] VITALS: BP 146/84
[2020-02-02] MEDS: ALPRAZolam 0.25 MG TABLET PO PRN (19:34)
[2020-02-02] MEDS: ALPRAZolam 0.25 MG TABLET PO SCH (20:39)
[2020-02-02] MEDS: INSULIN GLARGINE SYRINGE. SQ SCH (20:43)
--- NOTE | 2020-02-03 02:12 | PN ---
DATE: 02/02/2020 SUBJECTIVE: The patient is sitting in his chair comfortably in no apparent distress. He continued to complain of shortness of breath, but stated that he generally much improved. The nursing staff stated that he desats quickly and has tendency to remove his nasal cannula. However, on 2 liters of oxygen, he is maintaining his oxygen saturation at 97%. OBJECTIVE: GENERAL: When I examined him this afternoon, he looked well and was clearly in no apparent respiratory distress. There was no pallor, jaundice or cyanosis. No lymphadenopathy, no thyromegaly. No jugular venous distention. No limb edema. VITAL SIGNS: His heart rate was 87, blood pressure was 144/80, temperature was 97.7, respiratory rate 24 and oxygen saturation was 97% on 2 liters of oxygen. HEAD, EYES, EARS, NOSE, AND THROAT: Normocephalic, atraumatic. NECK: Supple. HEART: Normal first and second heart sounds. No gallop, rub or murmur. CHEST: Clear to auscultation. No crepitation or rhonchi. ABDOMEN: Distended, soft, nontender. NEUROLOGIC: He was awake, alert, responding appropriately. All cranial nerves are intact. He moves extremities without any difficulty. He ambulates with a walker with standby assist. His intake over the last 24 hours was 3618 and output was incompletely recorded. LABORATORY DATA: His lab work this morning showed a white cell count of 10,400, hemoglobin 12.5, hematocrit 36, MCV 88 and platelet count 366,000. His chemistry showed a serum sodium unfortunately dropped down back to 125, potassium 3.8, chloride 89, bicarbonate 24, anion gap of 12, BUN 13, creatinine 1.1, estimated GFR was 63 mL per minute. His glucose 175, calcium was 8.2. Total bilirubin, AST, ALT, alkaline phosphatase were normal. Total protein 7.1, albumin was 2.6. His prothrombin time, INR and aPTT were normal. His coronavirus PCR was detectable. His blood cultures so far showed no growth after 2 days. ASSESSMENT: 1. COVID-19 pneumonia. 2. Acute hypoxic respiratory failure. 3. Acute on chronic, probably diastolic congestive heart failure. 4. Severe sepsis versus metformin-induced lactic acidosis. 5. Hyponatremia, likely multifactorial, serum sodium went up to 127, now 125. 6. Type 2 diabetes mellitus. 7. Coronary artery disease, status post coronary artery bypass graft surgery. 8. Hyperlipidemia. 9. Accelerated hypertension. PLAN: To restrict his fluid intake to about 1200 mL. Meanwhile, we will continue to monitor his insulin and adjust insulin sliding scale. Continue with ceftriaxone and Zithromax. Continue with metoprolol to control the heart rate and I would also double the dose of amlodipine to 10 mg. RAGHAVENDRA ORTIZ MD DR: ANTHONY/luis m JOB#: [id number] / [id number]
[2020-02-03] MEDS: ALPRAZolam 0.25 MG TABLET PO PRN ×3 (06:13→15:11)
[2020-02-03 06:33] VITALS: BP 160/92
--- NOTE | 2020-02-03 07:47 | PDOC ---
CARDIO Progress Notes Date & Time Date of Service DATE: 02/03/20 TIME: 07:44 Time of Evaluation 07:44 Vitals Vitals Vital Signs Date Time Temp Pulse Resp B/P (MAP) Pulse Ox O2 Delivery O2 Flow Rate FiO2 02/03/20 06:33 97.7 114 20 160/92 (114) 95 Nasal Cannula 2.0 Weight Weight [ ] Input and Output I.O. Intake and Output 02/03/20 07:00 Intake Total 700 ml Balance 700 ml Intake Oral 700 ml # Voids 3 Laboratory Labs Laboratory Tests Test 02/01/20 11:43 02/01/20 16:33 02/01/20 21:07 02/02/20 05:30 Glucose (Fingerstick) 230 mg/dL (70-99) 80 mg/dL (70-99) 131 mg/dL (70-99) White Blood Count 10.4 x10^3/uL (4.0-11.0) Red Blood Count 4.14 x10^6/uL (4.30-5.70) Hemoglobin 12.5 g/dL (13.0-17.5) Hematocrit 36.6 % (39.0-53.0) Mean Corpuscular Volume 88 fL (79-100) Mean Corpuscular Hemoglobin 30 pg (25-35) Mean Corpuscular Hemoglobin Concent 34 g/dL (31-37) Red Cell Distribution Width 12.9 % (11.5-14.5) Platelet Count 366 x10^3/uL (140-400) Sodium Level 125 mmol/L (136-145) Potassium Level 3.8 mmol/L (3.5-5.1) Chloride Level 89 mmol/L (98-107) Carbon Dioxide Level 24 mmol/L (21-32) Anion Gap 12 (6-14) Blood Urea Nitrogen 13 mg/dL (8-26) Creatinine 1.1 mg/dL (0.7-1.3) Estimated GFR (Cockcroft-Gault) 63.3 BUN/Creatinine Ratio 12 (6-20) Glucose Level 175 mg/dL (70-99) Calcium Level 8.2 mg/dL (8.5-10.1) Total Bilirubin 0.7 mg/dL (0.2-1.0) Aspartate Amino Transf (AST/SGOT) 32 U/L (15-37) Alanine Aminotransferase (ALT/SGPT) 38 U/L (16-63) Alkaline Phosphatase 89 U/L (46-116) Total Protein 7.1 g/dL (6.4-8.2) Albumin 2.6 g/dL (3.4-5.0) Albumin/Globulin Ratio 0.6 (1.0-1.7) Test 02/02/20 07:05 02/02/20 11:32 02/02/20 16:41 02/02/20 19:37 Glucose (Fingerstick) 209 mg/dL (70-99) 215 mg/dL (70-99) 73 mg/dL (70-99) 139 mg/dL (70-99) Microbiology Micro Microbiology 01/30/20 Blood Culture - Preliminary, Resulted NO GROWTH AFTER 3 DAYS... Physical Exams HEENT: Neck Supple W Full Motion Chest: Symmetric Lungs: Other (on NC) Heart: irregularly irregular (AFIB with RVR) Abdomen: Other (non-distended) Extremities: No Edema Neurology: alert, follow commands Assessment Assessment 1. Acute respiratory failure with COVID PNA and CHF 2. Accelerated hypertension; remains elevated 3. Acute on chronic probable diastolic CHF 4. Mild troponin elevation; peak 0.087. Most probable type II, demand ischemia in the setting of COVID 5. CAD s/p CABG. CP free 6. SSS s/p PPM; presently AFIB with RVR. no known prior h/o AFIB 7. Hyperlipidemia; LDL 65 8. Diabetes, II 9. Hyponatremia; improved s/p IVFs 10. Lactic acidosis, ? sepsis 11. Anxiety, depression 12. Dementia 13. PUI; COVID positive Recommendations Continue metoprolol; agree with increasing for better rate control ASA therapy. Presently on prophylactic Lovenox dosing. Probable poor candidate for long-term OAC given fall risk Outpatient echo when recovered from COVID Fluid restriction, Monitor Na level Ongoing lung optimization, treatment of COVID Supportive care DARBY LO APRN Feb 03, 2020 07:47
[2020-02-03 08:03] LABS: CALCIUM 8.3 mg/dL (8.5-10.1); CREATININE 0.9 mg/dL (0.7-1.3); GFR 79.8; POTASSIUM 3.5 mmol/L (3.5-5.1)
[2020-02-03] MEDS: LACTOBACILLUS RHAMNOSUS GG 1 CAPSULE. PO SCH ×2 (08:09→19:51)
[2020-02-03] MEDS: METOPROLOL TART IMMED RELEASE 50 MG TABLET PO SCH ×3 (08:10→09:01)
[2020-02-03] MEDS: amLODIPine BESYLATE 10 MG TABLET PO SCH (08:10)
[2020-02-03] MEDS: ASPIRIN ENTERIC COATED 81 MG TABLET.DR. PO SCH (08:10)
[2020-02-03] MEDS: AZITHROMYCIN 250 MG TABLET. PO SCH (08:10)
[2020-02-03] MEDS: MEMANTINE 10 MG TABLET. PO SCH ×2 (08:10→19:50)
[2020-02-03] MEDS: ENOXAPARIN 40 MG/0.4 ML SYRINGE. SQ SCH ×2 (08:11→19:50)
[2020-02-03] MEDS: INSULIN LISPRO 300 UNITS/3 ML VIAL. SQ SCH ×6 (08:20→17:00)
[2020-02-03 12:39] VITALS: BP 140/72
[2020-02-03 15:28] VITALS: BP 129/65
--- NOTE | 2020-02-03 17:21 | NUR ---
NURSING NOTE: PT IN BED UPON MEDICATION ADMINISTRATION AND ASSESSMENT. PT COMPLIANT WITH MEDICATIONS. PT UNDERSTANDING OF BED ALARM AND CALL LIGHT. PT INCONTINENT THROUGHOUT THE DAY. PT TITRATED OFF OF THE OXYGEN/NC. PT RESTING IN BED THROUGHOUT THE DAY. PT COMPLIANT WITH FLUID RESTRICTION. PT STATED THAT HE WAS FEELING BETTER. PT RESTING IN BED WATCHING TV WITH THE CALL LIGHT WITHIN REACH. WILL CONTINUE TO MONITOR. SEKOU MUNGUIA
[2020-02-03 19:45] VITALS: BP 129/73
[2020-02-03] MEDS: ALPRAZolam 0.25 MG TABLET PO SCH (19:50)
[2020-02-03] MEDS: METOPROLOL TART IMMED RELEASE 25 MG TABLET. PO SCH (19:51)
[2020-02-03] MEDS ORDERED: ACETAMINOPHEN 325 MG TABLET PO ONE (20:44)
[2020-02-03] MEDS: ACETAMINOPHEN 325 MG TABLET PO PRN (20:59)
[2020-02-03] MEDS: INSULIN GLARGINE SYRINGE. SQ SCH (21:00)
--- NOTE | 2020-02-03 21:01 | NUR ---
Pt given PRN Tylenol for c/o headache.
--- NOTE | 2020-02-03 22:25 | PN ---
DATE: 02/03/2020 ATTENDING PHYSICIANS: Dr. Madrid and Dr. Carl. SUBJECTIVE: Very weak. Not much appetite. Still dyspneic with minimal exertion. OBJECTIVE FINDINGS: VITAL SIGNS: Blood pressure today is 160/92 mmHg, pulse was at 114, after his morning meds, it came down to 80, irregularly irregular, temperature 97.7 degrees Fahrenheit, oxygen saturation 95% on 2 liters nasal cannula. HEENT: Head is without trauma. Pupils are reactive. Sclerae nonicteric. Oropharynx clear. NECK: Supple, no bruits. HEART: Irregularly irregular heart rate, normal heart sounds, no gallops. LUNGS: Shallow respirations with fair air movement. ABDOMEN: Soft, scaphoid, nontender. NEUROLOGIC: Focally intact. He moved all extremities. SKIN: Warm and dry. ASSESSMENT: 1. An 85-year-old gentleman with COVID-19 pneumonia. 2. Acute hypoxemic respiratory failure, slightly improved. 3. Acute on chronic diastolic congestive heart failure, compensated. 4. Hyponatremia. Followup sodium is pending. 5. Type 2 diabetes. 6. Known coronary artery disease with previous coronary artery bypass graft. 7. Hypertension, labile. 8. Hyperlipidemia. PLAN: 1. Continue medicines as scheduled. 2. Diabetic diet. 3. Follow up serial chemistry. 4. We shall wean down supplemental oxygen. PHUONG CARL MD DR: BRITNEY/luis m JOB#: [id number] / [id number]
[2020-02-04] VITALS (7 sets, daily range): BP systolic 112–157; BP diastolic 57–90
[2020-02-04] MEDS: MEMANTINE 10 MG TABLET. PO SCH ×2 (07:56→20:16)
[2020-02-04] MEDS: LACTOBACILLUS RHAMNOSUS GG 1 CAPSULE. PO SCH ×2 (07:56→20:16)
[2020-02-04] MEDS: ALPRAZolam 0.25 MG TABLET PO PRN ×3 (07:56→17:37)
[2020-02-04] MEDS: ASPIRIN ENTERIC COATED 81 MG TABLET.DR. PO SCH (07:56)
[2020-02-04] MEDS: amLODIPine BESYLATE 10 MG TABLET PO SCH (07:56)
[2020-02-04] MEDS: AZITHROMYCIN 250 MG TABLET. PO SCH (07:56)
[2020-02-04] MEDS: ENOXAPARIN 40 MG/0.4 ML SYRINGE. SQ SCH ×2 (07:57→20:15)
[2020-02-04] MEDS: METOPROLOL TART IMMED RELEASE 50 MG TABLET PO SCH (07:57)
[2020-02-04] MEDS: INSULIN LISPRO 300 UNITS/3 ML VIAL. SQ SCH ×6 (08:37→17:00)
--- NOTE | 2020-02-04 10:45 | PN ---
DATE: 02/04/2020 ATTENDING PHYSICIAN: Dr. Madrid and Dr. Carl. SUBJECTIVE: Still very weak, dyspneic with minimal exertion, not much appetite. OBJECTIVE FINDINGS: VITAL SIGNS: Heart rate is better controlled, it is irregularly irregular between 70 and 90 per minute; blood pressure is 130/57; temperature 97.4 degrees Fahrenheit; oxygen saturation 96% on room air. HEENT: Head is without trauma. Pupils are reactive. Sclerae nonicteric. Oropharynx clear. NECK: Supple, no bruits. LUNGS: Shallow respirations. Minimal rhonchi at bases. CARDIOVASCULAR: Showed regular heart tones. Irregularly irregular rhythm. No gallops. Peripheral pulses are palpable and full. ABDOMEN: Soft. No guarding or rebound tenderness. Normoactive bowel sounds. EXTREMITIES: Show trace edema. NEUROLOGIC: Focally intact. He is a little hard of hearing. SKIN: Warm and dry. LABORATORY DATA: Repeat chemistries pending. Sodium yesterday was still 123. I did order a random urinary sodium level. ASSESSMENT: 1. An 85-year-old gentleman with COVID-19 pneumonia. 2. Acute hypoxemic respiratory failure, improved. He is now on room air with adequate saturations. 3. Acute on chronic diastolic congestive heart failure, compensated. 4. Permanent atrial fibrillation. 5. 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 6. Type 2 diabetes. 7. Known coronary artery disease with previous coronary artery bypass graft. 8. Essential hypertension. 9. Hyperlipidemia. PLAN: 1. Continue antibiotics as ordered. 2. Diabetic diet. 3. Follow up chemistries. 4. Random urinary sodium. 5. If indeed the random urinary sodium is elevated supporting SIADH, he may benefit with p.o. Demeclocycline. PHUONG CARL MD DR: BRITNEY/luis m JOB#: [id number] / [id number]
[2020-02-04 11:20] LABS: CALCIUM 8.5 mg/dL (8.5-10.1); CREATININE 1.2 mg/dL (0.7-1.3); GFR 57.3; POTASSIUM 3.4 mmol/L (3.5-5.1)
--- NOTE | 2020-02-04 13:22 | NUR ---
NSG NOTE; INCREASED SOA AT REST WITH AUDIBLE WHEEZING. INCREASED COUGH NOTED. PT C/O THAT "I DON'T FEEL GOOD" BUT UNABLE TO GIVE EXACT SYMPTOMS/REASONS. BP 128/84, HR 91, O2 SAT 93% RA BUT O2 AT 2L NC REAPPLIED FOR COMFORT. DR CARL NOTIFIED. NEW ORDERS NOTED.
[2020-02-04] MEDS ORDERED: FUROSEMIDE 40 MG/4 ML VIAL IVP ONE (13:30)
[2020-02-04] MEDS: MORPHINE SULFATE 2 MG/ML DISP.SYRIN. IV PRN ×2 (13:36→17:15)
--- NOTE | 2020-02-04 15:22 | NUR ---
NSG NOTE; DESAT ON EXERTION O2 REMOVED FOR AMB TO BR. UPON RETURN TO BED, O2 SAT 85 ON RA. O2 REAPPLIED WITH RECOVERY TO 94% WITHIN 2 MINUTES.
[2020-02-04] MEDS: ACETAMINOPHEN 325 MG TABLET PO PRN (17:37)
--- NOTE | 2020-02-04 18:26 | NUR ---
NSG NOTE; RESTLESS AND ANXIOUS REPEATED ATTEMPTS TO GET OOB. I STAYED AT PT'S BEDSIDE FROM [id number] TO KEEP HIM IN BED. HE SETTLED AND RESTED
--- NOTE | 2020-02-04 18:28 | NUR ---
NSG NOTE; ELEV TEMP NOTED. TYLENOL GIVEN. PT RESTING MORE QUIETLY
[2020-02-04] MEDS: METOPROLOL TART IMMED RELEASE 25 MG TABLET. PO SCH (20:16)
[2020-02-04] MEDS: ALPRAZolam 0.25 MG TABLET PO SCH (20:16)
[2020-02-04] MEDS: DEMECLOCYCLINE HCL 150 MG TABLET. PO SCH (20:16)
[2020-02-04] MEDS: INSULIN GLARGINE SYRINGE. SQ SCH (20:40)
[2020-02-05 05:03] VITALS: BP 109/27
--- NOTE | 2020-02-05 05:50 | NUR ---
Shift Note: Pt is a/o to self (knows he is in the hospital), less lethargic this morning compared to when I started the shift, pt conversing appropriately this morning with staff, VSS (pt continues to require oxygen at 2 liters to maintain sats (dropped to 87% when takes oxygen off)), no c/o pain or n/v at this time, pt incontinent x1 during night, bed alarm remains engaged d/t pts impulsiveness.
[2020-02-05 06:18] LABS: CREATININE 1.5 mg/dL (0.7-1.3); GFR 44.3; POTASSIUM 3.5 mmol/L (3.5-5.1)
[2020-02-05] MEDS: AZITHROMYCIN 250 MG TABLET. PO SCH (08:15)
[2020-02-05] MEDS: ACETAMINOPHEN 325 MG TABLET PO PRN ×2 (08:15→17:05)
[2020-02-05] MEDS: LACTOBACILLUS RHAMNOSUS GG 1 CAPSULE. PO SCH ×2 (08:15→20:40)
[2020-02-05] MEDS: ALPRAZolam 0.25 MG TABLET PO PRN ×3 (08:15→20:42)
[2020-02-05] MEDS: DEMECLOCYCLINE HCL 150 MG TABLET. PO SCH ×2 (08:15→20:46)
[2020-02-05] MEDS: ASPIRIN ENTERIC COATED 81 MG TABLET.DR. PO SCH (08:16)
[2020-02-05] MEDS: MEMANTINE 10 MG TABLET. PO SCH ×2 (08:16→20:41)
[2020-02-05] MEDS: ENOXAPARIN 40 MG/0.4 ML SYRINGE. SQ SCH ×2 (08:16→20:46)
[2020-02-05] MEDS: INSULIN LISPRO 300 UNITS/3 ML VIAL. SQ SCH ×6 (08:20→16:40)
[2020-02-05] MEDS: amLODIPine BESYLATE 10 MG TABLET PO SCH (08:38)
[2020-02-05] MEDS: METOPROLOL TART IMMED RELEASE 50 MG TABLET PO SCH (08:38)
--- NOTE | 2020-02-05 09:44 | PN ---
DATE: 02/05/2020 ATTENDING PHYSICIAN: Dr. Madrid. SUBJECTIVE: He is breathing better today. Yesterday afternoon, he had some respiratory distress. We ordered Lasix and some morphine with some improvement. OBJECTIVE FINDINGS: VITAL SIGNS: Temperature yesterday afternoon was 103.3 degrees Fahrenheit, today is down to 98, he is afebrile, blood pressure today is 144/69, pulse is 85 and regular, oxygen saturation 95% on 2 liters nasal cannula. HEENT: Head is without trauma. Pupils are reactive. Sclerae are nonicteric. Oropharynx is clear. NECK: Supple, no bruits or stridor. CARDIOVASCULAR: Showed regular heart tones. No gallops. Peripheral pulses are palpable and full. ABDOMEN: Soft, nontender, no organomegaly. Bowel sounds are hypoactive. EXTREMITIES: Showed no cyanosis or edema. NEUROLOGIC: Focally intact. SKIN: Warm and dry. ASSESSMENT: 1. An 85-year-old gentleman with COVID-19 pneumonia. 2. Acute on chronic respiratory failure. He has a little worsening yesterday, but is better today. 3. Permanent atrial fibrillation. 4. 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 5. Generalized debilitation. 6. Type 2 diabetes. 7. Known coronary artery disease. 8. Essential hypertension. PLAN: 1. Intermittent Lasix as ordered. 2. Continue antibiotics as ordered. 3. Diabetic diet. 4. Follow up chemistries. I did notice that his serum sodium improved with just the initiation of demeclocycline yesterday. 5. He remains a DNR per advanced directive. PHUONG CARL MD DR: BRITNEY/luis m JOB#: [id number] / [id number]
--- NOTE | 2020-02-05 10:13 | RAD ---
AP chest x-ray HISTORY: Covid pneumonia. COMPARISON: Chest x-ray January 30, 2020. FINDINGS: Median sternotomy and coronary bypass. Mild cardiomegaly stable. Calcified plaque and tortuosity thoracic aorta silhouette. Pulmonary interstitial and alveolar infiltrates have worsened. No pneumothorax. No pleural effusions. IMPRESSION: Worsening pulmonary interstitial and alveolar infiltrates could represent progressive pulmonary edema or infectious/inflammatory process including atypical viral pneumonitis. Electronically signed by: Dimitrios Ordoñez MD (02/05/2020 10:10 AM) [id number]
[2020-02-05 12:39] VITALS: BP 101/70
[2020-02-05 15:51] VITALS: BP 125/75
[2020-02-05 16:49] VITALS: BP 120/62
[2020-02-05] MEDS: ALPRAZolam 0.25 MG TABLET PO SCH (17:05)
[2020-02-05 20:19] VITALS: BP 120/69
[2020-02-05] MEDS: METOPROLOL TART IMMED RELEASE 25 MG TABLET. PO SCH (20:41)
[2020-02-05] MEDS: INSULIN GLARGINE SYRINGE. SQ SCH (21:00)
[2020-02-05 22:47] VITALS: BP 126/59
[2020-02-06 04:52] VITALS: BP 146/79
[2020-02-06 07:31] LABS: CALCIUM 8.7 mg/dL (8.5-10.1); CREATININE 1.3 mg/dL (0.7-1.3); GFR 52.2; POTASSIUM 3.4 mmol/L (3.5-5.1)
[2020-02-06] MEDS: INSULIN LISPRO 300 UNITS/3 ML VIAL. SQ SCH ×6 (08:00→17:00)
[2020-02-06] MEDS: ASPIRIN ENTERIC COATED 81 MG TABLET.DR. PO SCH (08:22)
[2020-02-06] MEDS: METOPROLOL TART IMMED RELEASE 50 MG TABLET PO SCH (08:22)
[2020-02-06] MEDS: amLODIPine BESYLATE 10 MG TABLET PO SCH (08:23)
[2020-02-06] MEDS: LACTOBACILLUS RHAMNOSUS GG 1 CAPSULE. PO SCH ×2 (08:23→20:50)
[2020-02-06] MEDS: MEMANTINE 10 MG TABLET. PO SCH ×2 (08:23→20:50)
[2020-02-06] MEDS: AZITHROMYCIN 250 MG TABLET. PO SCH (08:23)
[2020-02-06] MEDS: ENOXAPARIN 40 MG/0.4 ML SYRINGE. SQ SCH ×2 (08:24→20:51)
[2020-02-06] MEDS: DEMECLOCYCLINE HCL 150 MG TABLET. PO SCH ×2 (08:34→20:51)
--- NOTE | 2020-02-06 08:56 | PN ---
DATE: 02/06/2020 ATTENDING PHYSICIAN: Dr. Madrid and Dr. Carl. SUBJECTIVE: Still very weak. He is a little more hoarse this morning. He is fairly oriented. There is no obvious respiratory distress. OBJECTIVE FINDINGS: VITAL SIGNS: Blood pressure today is 146/79 mmHg, pulse is 82 and regular, temperature 96.7 degrees Fahrenheit, and oxygen saturations have been weaned down where he is maintaining 96% saturations on 1 liter by nasal cannula. HEENT: Head is without trauma. Pupils are reactive. Sclerae nonicteric. Oropharynx is clear. NECK: Supple. There is no stridor. LUNGS: Fairly good breath sounds with minimal rhonchi. CARDIOVASCULAR: Showed regular heart tones. No gallops. ABDOMEN: Soft, scaphoid, nontender, no organomegaly. Normoactive bowel sounds. EXTREMITIES: Showed no cyanosis or edema. NEUROLOGIC: Focally intact. No deficits. PERTINENT LABORATORY STUDIES: Nonfasting blood sugars are ranging between 100 and 200. Sodium was 128 mEq per liter and potassium is 3.4 mEq. ASSESSMENT: 1. An 85-year-old gentleman with COVID-19 pneumonia. 2. Acute on chronic respiratory failure, improving as his oxygen requirements has been weaned down to 1 liter to maintain a saturation of 96%. 3. Permanent atrial fibrillation. 4. 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 5. Generalized debilitation. 6. Type 2 diabetes. 7. Coronary artery disease. 8. Essential hypertension. PLAN: 1. Continue antibiotics as ordered. 2. Diabetic diet. 3. Serial chemistries. 4. Please note that the serum sodium is improved with the addition of demeclocycline which basically blunts the effect of antidiuretic hormone ____ of the kidneys and thus retaining sodium. 5. He remains a DNR per advanced directives. PHUONG CARL MD DR: BRITNEY/luis m JOB#: [id number] / [id number]
[2020-02-06 11:26] VITALS: BP 116/69
[2020-02-06] MEDS: ALPRAZolam 0.25 MG TABLET PO PRN (11:26)
[2020-02-06 12:00] VITALS: BP 104/60
[2020-02-06] MEDS ORDERED: MAGNESIUM CITRATE 296 ML SOLUTION. PO ONE (12:45)
[2020-02-06 15:25] VITALS: BP 104/60
[2020-02-06 19:55] VITALS: BP 139/59
[2020-02-06] MEDS: ALPRAZolam 0.25 MG TABLET PO SCH (20:50)
[2020-02-06] MEDS: METOPROLOL TART IMMED RELEASE 25 MG TABLET. PO SCH (20:50)
[2020-02-06] MEDS: INSULIN GLARGINE SYRINGE. SQ SCH (21:07)
[2020-02-07] MEDS: ALPRAZolam 0.25 MG TABLET PO PRN ×2 (00:37→08:04)
--- NOTE | 2020-02-07 05:01 | NUR ---
Patient confused and restless through most night, multiple times trying to stand up out of bed. Patient reassured and redirected each time, bed alarm on.
[2020-02-07 06:30] VITALS: BP 160/84
[2020-02-07 06:54] LABS: CALCIUM 8.7 mg/dL (8.5-10.1); CREATININE 1.5 mg/dL (0.7-1.3); GFR 44.3; POTASSIUM 4.2 mmol/L (3.5-5.1)
[2020-02-07] MEDS: AZITHROMYCIN 250 MG TABLET. PO SCH (08:02)
[2020-02-07] MEDS: LACTOBACILLUS RHAMNOSUS GG 1 CAPSULE. PO SCH ×2 (08:03→20:32)
[2020-02-07] MEDS: ACETAMINOPHEN 325 MG TABLET PO PRN (08:03)
[2020-02-07] MEDS: MEMANTINE 10 MG TABLET. PO SCH ×2 (08:03→20:32)
[2020-02-07] MEDS: METOPROLOL TART IMMED RELEASE 50 MG TABLET PO SCH (08:03)
[2020-02-07] MEDS: amLODIPine BESYLATE 10 MG TABLET PO SCH (08:03)
[2020-02-07] MEDS: ENOXAPARIN 40 MG/0.4 ML SYRINGE. SQ SCH ×2 (08:04→20:33)
[2020-02-07] MEDS: DEMECLOCYCLINE HCL 150 MG TABLET. PO SCH ×2 (08:04→20:35)
[2020-02-07] MEDS: ASPIRIN ENTERIC COATED 81 MG TABLET.DR. PO SCH (08:04)
[2020-02-07] MEDS: INSULIN LISPRO 300 UNITS/3 ML VIAL. SQ SCH ×6 (08:08→16:33)
[2020-02-07 11:02] VITALS: BP 91/51
[2020-02-07 14:54] VITALS: BP 102/52
--- NOTE | 2020-02-07 18:15 | PN ---
DATE: 02/07/2020 ATTENDING PHYSICIAN: Dr. Madrid. SUBJECTIVE: Is fairly sleepy today. I could barely arouse him. He has been getting scheduled Xanax. I suspect this is accumulating. OBJECTIVE FINDINGS: VITAL SIGNS: Blood pressure today is 160/84 mmHg, pulse is 101 and regular, temperature 98.6 degrees Fahrenheit, oxygen saturation 95% on room air. HEENT: Head is without trauma. Pupils are reactive. Sclerae nonicteric. Oropharynx is clear. Mucous membranes dry. NECK: Supple. No stridor. LUNGS: Shallow respirations. CARDIOVASCULAR: Showed regular heart tones. No gallops. ABDOMEN: Soft. EXTREMITIES: Without edema. NEUROLOGIC: Pleasantly confused. LABORATORY DATA: Blood sugars are noted. Serum sodium is up to 130 mEq a day, which is the highest it has been in a long time. ASSESSMENT: 1. An 85-year-old gentleman with COVID-19 pneumonia. 2. Acute on chronic respiratory failure. We had made some progress in weaning him down to adequate saturations on room air. 3. Permanent atrial fibrillation. 4. Chronic hyponatremia due to SIADH. Lab work is improved since I initiated demeclocycline 3 days ago. 5. Generalized debilitation. 6. Type 2 diabetes. 7. Known coronary artery disease. 8. Essential hypertension. PLAN: 1. Continue antibiotics as ordered. 2. Diabetic diet. 3. Serial chemistries. 4. I have stopped Xanax; we will try to simplify his meds. 5. He remains a DNR per advanced directive. PHUONG CARL MD DR: BRITNEY/luis m JOB#: [id number] / [id number]
[2020-02-07 19:55] VITALS: BP 122/72
[2020-02-07] MEDS: METOPROLOL TART IMMED RELEASE 25 MG TABLET. PO SCH (20:33)
[2020-02-07] MEDS: INSULIN GLARGINE SYRINGE. SQ SCH (20:45)
[2020-02-08 05:00] VITALS: BP 142/62
[2020-02-08] MEDS: ASPIRIN ENTERIC COATED 81 MG TABLET.DR. PO SCH (08:43)
[2020-02-08] MEDS: AZITHROMYCIN 250 MG TABLET. PO SCH (08:43)
[2020-02-08] MEDS: METOPROLOL TART IMMED RELEASE 50 MG TABLET PO SCH (08:43)
[2020-02-08] MEDS: LACTOBACILLUS RHAMNOSUS GG 1 CAPSULE. PO SCH ×2 (08:43→21:31)
[2020-02-08] MEDS: amLODIPine BESYLATE 10 MG TABLET PO SCH (08:44)
[2020-02-08] MEDS: MEMANTINE 10 MG TABLET. PO SCH ×2 (08:44→21:32)
[2020-02-08] MEDS: ENOXAPARIN 40 MG/0.4 ML SYRINGE. SQ SCH ×2 (08:44→21:33)
[2020-02-08] MEDS: INSULIN LISPRO 300 UNITS/3 ML VIAL. SQ SCH ×6 (08:45→17:00)
[2020-02-08] MEDS: DEMECLOCYCLINE HCL 150 MG TABLET. PO SCH ×2 (08:47→21:32)
[2020-02-08 10:48] VITALS: BP 113/70
[2020-02-08 13:57] VITALS: BP 112/70
[2020-02-08] MEDS ORDERED: ONDANSETRON PF 4 MG/2 ML VIAL. IVP PRN (17:45)
[2020-02-08] MEDS: MORPHINE SULFATE 2 MG/ML DISP.SYRIN. IV PRN (18:02)
[2020-02-08 20:14] VITALS: BP 115/68
[2020-02-08] MEDS: INSULIN GLARGINE SYRINGE. SQ SCH (21:00)
[2020-02-08] MEDS: METOPROLOL TART IMMED RELEASE 25 MG TABLET. PO SCH (21:32)
--- NOTE | 2020-02-09 02:04 | NUR ---
Patient was cooperative and calm during assessment. He was compliant with his medications. Patient is very [place]. Patient has been resting comfortably in bed and has been sleeping when checked hourly. Patient denied pain when asked.
[2020-02-09 06:32] VITALS: BP 124/54
[2020-02-09] MEDS: MEMANTINE 10 MG TABLET. PO SCH (08:48)
[2020-02-09] MEDS: METOPROLOL TART IMMED RELEASE 50 MG TABLET PO SCH (08:48)
[2020-02-09] MEDS: LACTOBACILLUS RHAMNOSUS GG 1 CAPSULE. PO SCH (08:48)
[2020-02-09] MEDS: ASPIRIN ENTERIC COATED 81 MG TABLET.DR. PO SCH (08:48)
--- NOTE | 2020-02-09 08:48 | PN ---
DATE: 02/08/2020 ATTENDING PHYSICIAN: Aj Madrid MD SUBJECTIVE: He is much more alert today. He is less sleepy. I stopped his benzodiazepine. He is in no obvious distress. OBJECTIVE FINDINGS: VITAL SIGNS: Blood pressure today is 113/70, pulse 81 and regular, temperature 97.5 degrees Fahrenheit, oxygen saturation 97% on room air. HEENT: Head is without trauma. Pupils are reactive. Sclerae nonicteric. Oropharynx clear. NECK: Supple, no bruits. LUNGS: Good breath sounds. CARDIOVASCULAR: Showed regular heart tones. No gallops. ABDOMEN: Soft, no guarding. There is no rebound tenderness. Bowel sounds are hypoactive. EXTREMITIES: Show trace edema. NEUROLOGIC: Focally intact. Speech is fluent. He is very alert. LABORATORY DATA: Nonfasting blood sugar 182. His sodium yesterday was 130 mEq per liter. ASSESSMENT: 1. An 85-year-old gentleman with acute on chronic respiratory failure. 2. COVID-19 pneumonia. 3. Permanent atrial fibrillation. 4. Syndrome of inappropriate antidiuretic hormone section with improvement in serum sodium level. 5. Generalized debilitation. 6. Type 2 diabetes. 7. Known coronary artery disease. 8. Essential hypertension. PLAN: 1. Continue antibiotics as ordered. 2. Diabetic diet. 3. Serial chemistry. 4. Meds simplified. 5. Prognosis discussed with the daughter. PLAN: Tentative discharge plans back to independent living at [facility]. PHUONG CARL MD DR: BRITNEY/luis m JOB#: [id number] / [id number]
[2020-02-09] MEDS: DEMECLOCYCLINE HCL 150 MG TABLET. PO SCH (08:49)
[2020-02-09] MEDS: amLODIPine BESYLATE 10 MG TABLET PO SCH (08:49)
[2020-02-09] MEDS: ENOXAPARIN 40 MG/0.4 ML SYRINGE. SQ SCH (08:49)
[2020-02-09] MEDS: AZITHROMYCIN 250 MG TABLET. PO SCH (08:49)
[2020-02-09] MEDS: INSULIN LISPRO 300 UNITS/3 ML VIAL. SQ SCH ×2 (08:51)
[2020-02-09 11:02] VITALS: BP 120/50
--- NOTE | 2020-02-09 11:13 | NUR ---
NURSING NOTE: DISCHARGE PT DISCHARGED HOME VIA WC. PT PICKED UP BY [facility]. FOLLOW UP PAPERWORK PROVIDED TO [facility] AND VERBAL INSTRUCTIONS GIVEN TO DAUGHTER VIA TELEPHONE. VERBAL UNDERSTANDING RECEIVED. NO FURTHER QUESTIONS. RX FOR DEMECLOCYCLINE, AND CEPHALEXIN PROVIDED. SEKOU MUNGUIA
--- NOTE | 2020-02-09 11:28 | DS ---
DATE OF DISCHARGE: 02/09/2020 ATTENDING PHYSICIAN: Dr. Madrid and Dr. Carl. FINAL DISCHARGE DIAGNOSES: 1. Community-acquired pneumonia. 2. COVID-19 pneumonia. 3. Paroxysmal atrial fibrillation. 4. Congestive heart failure, systolic, acute on chronic. 5. Coronary artery disease with coronary artery bypass graft. 6. Dementia. 7. Type 2 diabetes. 8. 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 9. History of prostate cancer. 10. Permanent pacemaker. 11. Osteoporosis. 12. History of vertebroplasty. HISTORY OF PRESENT ILLNESS: The patient is an 85-year-old gentleman who had community-acquired pneumonia. He had been living at home in independent living at [place]. He has an elderly , daughter and a grandson looks after them. He came in with shortness of breath and generalized weakness, ____ turned out to COVID-19 swab was indeed positive. PHYSICAL EXAMINATION: Please see the dictated note. PERTINENT LABORATORY AND X-RAY STUDIES: Imaging studies on admission showed patchy infiltrates within bilateral lungs. A followup x-ray done on the 6th hospital day showed pulmonary interstitial and alveolar infiltrates, progressive pulmonary edema, inflammatory process. The chest x-ray unfortunately was lagging the clinical response as he was doing better. Coronavirus swab was indeed positive. Hemoglobin maintained at 12.5 grams per deciliter with a white count of 10,400. Chemistry panel admission, sodium had been 123, repeated was up to 125, 127 and 128 and eventually 130 millimoles per liter. He had an admission level of 119. The urinary sodium was inappropriately high. He was started on demeclocycline with improvement of his serum sodium. COURSE IN THE HOSPITAL: The patient was isolated for COVID precautions. He received 11 full days of intravenous Zithromax and Rocephin with marked improvement. Cardiology service saw him for followup heart failure and paroxysmal atrial fibrillation. His rate was well controlled. Diet was advanced. We simplified his meds. He was doing much better. The chest x-ray was lagging the clinical response. By the 12th hospital day, he was much improved. He wanted to go home, which I felt was reasonable. Blood pressure at the time of discharge was 124/54 mmHg. He was afebrile, pulse is 88 and regular, oxygen saturation adequate on room air. Therefore, he is discharged home with 7 more days of cephalexin 500 mg p.o. t.i.d. for 7 days and stop. He should continue his alprazolam as ordered, aspirin, Lexapro, glimepiride, lactulose, losartan, Namenda, metformin, metoprolol, Protonix, MiraLax and Januvia dose is unchanged. For now, we held his probenecid, fluticasone, herbal drugs and lactobacillus. In addition, I wrote a script for cephalexin 500 mg p.o. t.i.d. for 7 more days and stop and finally demeclocycline 300 mg b.i.d. I discussed with the daughter the limiting factor in demeclocycline will be the actual cost if this is prohibitively expensive and he does not have any coverage, they may not want to get this filled. He remains a DNR per advanced directives. He should follow up with his PCP at the regular scheduled time. They will also maintain COVID-19 isolation when he returns home. His daughter is aware of this. Therefore, on the 12th hospital day, the patient was then discharged from our hospital in stable condition with explicit instructions and followup care. TOTAL DISCHARGE SPENT TIME: 41 minutes. PHUONG CARL MD DR: BRITNEY/luis m JOB#: [id number] / [id number] Melissa Mccracken MD
== END 2020-02-09 11:15 | disposition home health service (06) | DRG 871 ==
LOC: ER 13:50 → 1 SOUTH 16:10
PROVIDERS: ADMIT Internal Medicine; ATTEND Internal Medicine
DX: A41.89 Other specified sepsis (principal); I50.43 Acute on chronic combined systolic (congestive) and diastolic (congestive) heart failure; U07.1 COVID-19; E43 Unspecified severe protein-calorie malnutrition; J12.89 Other viral pneumonia; J96.21 Acute and chronic respiratory failure with hypoxia; E22.2 Syndrome of inappropriate secretion of antidiuretic hormone; E87.2 Acidosis; I48.21 Permanent atrial fibrillation; R65.20 Severe sepsis without septic shock; E11.65 Type 2 diabetes mellitus with hyperglycemia; E78.5 Hyperlipidemia, unspecified; E86.0 Dehydration; F02.80 Dementia in other diseases classified elsewhere, unspecified severity, without behavioral disturbance, psychotic disturbance, mood disturbance, and anxiety; F32.9 Major depressive disorder, single episode, unspecified; F41.9 Anxiety disorder, unspecified; G30.9 Alzheimer's disease, unspecified; I11.0 Hypertensive heart disease with heart failure; I25.10 Atherosclerotic heart disease of native coronary artery without angina pectoris; M81.0 Age-related osteoporosis without current pathological fracture; Z66 Do not resuscitate; Z85.46 Personal history of malignant neoplasm of prostate; Z86.19 Personal history of other infectious and parasitic diseases; Z86.73 Personal history of transient ischemic attack (TIA), and cerebral infarction without residual deficits; Z95.0 Presence of cardiac pacemaker; Z95.1 Presence of aortocoronary bypass graft; Z98.1 Arthrodesis status; M19.90 Unspecified osteoarthritis, unspecified site; Z88.0 Allergy status to penicillin; Z88.8 Allergy status to other drugs, medicaments and biological substances; Z68.26 Body mass index [BMI] 26.0-26.9, adult
CPT/HCPCS: 36415; 71045; 74177; 80048; 80053; 80061; 80307; 81001; 82553; 82947; 83605; 83690; 83735; 83880; 84300; 84443; 84484; 85007; 85025; 85027; 85610; 85730; 87040; 93005; 96361; 96374; 96375; J0456; J0696; J1650; J1815; J1940; J2270; J2405; J3475; J3490; J7050; Q9967; U0003; 97535; 99285-25; J7030

== ENCOUNTER 2020-05-05 11:54 | Inpatient (IN) | payer MEDICARE, OTHER ==
[~2020-05-05] VITALS: Ht 172.7 cm; Wt 73.2 kg
[~2020-05-05 11:54] MED LIST: ACET325T9 PO; ALPR0.254 PO; ASPI-889 PO; ESCITALOPRAM OX10 MG PO; FLUT16SP21 NS; GLIM2TAB7 PO; GLIM4TAB8 PO; HERB1CAP PO; LACT10SO26 PO; LACT1CAP6 PO; LOSA25TA PO; MECO10005 PO; MEMA10TA PO; METF500T16 PO; METO100T7 PO; METO25TA4 PO; METO50TA6 PO; PANT40TA6 PO; POLY119P PO; PROB500T PO; SITA100T PO
[2020-05-05] MEDS ORDERED: LORazepam 1 MG TABLET PO ONE (12:30)
[2020-05-05] MEDS ORDERED: PROCHLORPERAZINE 10 MG/2 ML VIAL. IV ONE (12:30)
[2020-05-05 13:08] LABS: BASO # 0.1 x10^3/uL (0.0-0.2); BASO % 0 % (0-3); EOS % 0 % (0-3); HEMATOCRIT 39.7 % (39.0-53.0); HEMOGLOBIN 12.6 g/dL (13.0-17.5); LYMPH # 2.2 x10^3/uL (1.0-4.8); LYMPH % 12 % (24-48); MEAN CORPUSCULAR HEMOGLOBIN 29 pg (25-35); MEAN CORPUSCULAR HGB CONC 32 g/dL (31-37); MEAN CORPUSCULAR VOLUME 93 fL (79-100); MONO # 1.5 x10^3/uL (0.0-1.1); MONO % 8 % (0-9); NEUT # 14.6 x10^3uL (1.8-7.7); NEUT % 79 % (31-73); PLATELET COUNT 329 x10^3/uL (140-400); RED BLOOD COUNT 4.28 x10^6/uL (4.30-5.70); RED CELL DISTRIBUTION WIDTH 14.6 % (11.5-14.5); WHITE BLOOD COUNT 18.4 x10^3/uL (4.0-11.0)
--- NOTE | 2020-05-05 13:27 | RAD ---
INDICATION: AMS COMPARISON: February 05, 2020 FINDINGS: Single view of chest obtained. Mild interstitial opacities bilaterally. Enlarged cardiomediastinal silhouette with poststernotomy ch anges and numerous surgical clips. Degenerative changes of the shoulders. IMPRESSION: * Mild interstitial opacities bilaterally. Portion of this could be chronic in nature but superimpos ed mild edema or interstitial infiltrate isn't excluded. Electronically signed by: Bill Krishnamurthy MD (05/05/2020 1:25 PM) [id number]
--- NOTE | 2020-05-05 13:31 | PHYS DOC ---
Past History Past Medical History: CAD, Dementia, High Cholesterol, Heart Disease, Hypertension Additional Past Medical Histor: hyponatremiaSIADH (KRISTI ARVIZU APRN) Past Surgical History: Pacemaker Additional Past Surgical Histo: CABG (KRISTI ARVIZU APRN) Alcohol Use: None (KRISTI ARVIZU APRN) General Adult EDM: Chief Complaint: ABNORMAL LABS HPI: HPI: Patient is a 85-year-old male who presents with altered mental status, nausea/vomiting. Daughter brings patient into the emergency room stating "he started acting restless and irritable about 8 AM this morning". He started saying "I am going to , I cannot breathe". Patient is complaining of nausea and vomiting upon arrival to the emergency room. Daughter states that she gave patient anxiety medication at 8 AM. Patient has a history of anxiety, SIADH, hypertension, diabetes, Alzheimer's. (KRISTI ARVIZU APRN) Review of Systems: Review of Systems: Constitutional: Denies fever or chills Eyes: Denies change in visual acuity HENT: Denies nasal congestion or sore throat Respiratory: Denies cough or reports shortness of breath Cardiovascular: Denies chest pain or edema GI: Denies abdominal pain, reports nausea and vomiting : Denies dysuria Musculoskeletal: Denies back pain or joint pain Integument: Denies rash Neurologic: Denies headache, focal weakness or sensory changes Endocrine: Denies polyuria or polydipsia Lymphatic: Denies swollen glands Psychiatric: Denies depression, reports anxiety (KRISTI ARVIZU APRN) Current Medications: Current Meds: Current Medications Medications (Trade) Dose Ordered Sig/Susy Start Time Stop Time Status Last Admin Dose Admin Lorazepam (Ativan Inj) 2 mg STK-MED ONCE 05/05/20 12:59 05/05/20 12:59 DC Lorazepam (Ativan) 0.5 mg 1X ONCE 05/05/20 12:30 05/05/20 12:31 DC Prochlorperazine Edisylate (Compazine) 10 mg 1X ONCE 05/05/20 12:30 05/05/20 12:31 DC (KRISTI ARVIZU APRN) Allergies: Allergies: Allergies Coded Allergies Type Severity Reaction Last Updated Verified Penicillins Allergy Unknown 05/05/20 Yes hydrocodone Allergy Unknown 05/05/20 Yes (ARVIZU,KRISTI CAD DRAFTSMAN) Physical Exam: PE: Constitutional: Well developed, well nourished, no acute distress, non-toxic appearance. [] HENT: Normocephalic, atraumatic, bilateral external ears normal, oropharynx moist, no oral exudates, nose normal. [] Eyes: PERRLA, EOMI, conjunctiva normal, no discharge. [] Neck: Normal range of motion, no tenderness, supple, no stridor. [] Cardiovascular:Heart rate regular rhythm, no murmur [] Lungs & Thorax: Bilateral breath sounds clear to auscultation [] Abdomen: Bowel sounds normal, soft, no tenderness, no masses, no pulsatile masses. [] Skin: Warm, dry, no erythema, no rash. [] Back: No tenderness, no CVA tenderness. [] Extremities: No tenderness, no cyanosis, no clubbing, ROM intact, no edema. [] Neurologic: Alert and oriented X 3, normal motor function, normal sensory function, no focal deficits noted. [] Psychologic: Agitated, abnormal judgment, restless (KRISTI ARVIZU CAD DRAFTSMAN) Current Patient Data: Labs: Laboratory Tests Test 05/05/20 12:45 White Blood Count 18.4 x10^3/uL (4.0-11.0) H Red Blood Count 4.28 x10^6/uL (4.30-5.70) L Hemoglobin 12.6 g/dL (13.0-17.5) L Hematocrit 39.7 % (39.0-53.0) Mean Corpuscular Volume 93 fL (79-100) Mean Corpuscular Hemoglobin 29 pg (25-35) Mean Corpuscular Hemoglobin Concent 32 g/dL (31-37) Red Cell Distribution Width 14.6 % (11.5-14.5) H Platelet Count 329 x10^3/uL (140-400) Neutrophils (%) (Auto) 79 % (31-73) H Lymphocytes (%) (Auto) 12 % (24-48) L Monocytes (%) (Auto) 8 % (0-9) Eosinophils (%) (Auto) 0 % (0-3) Basophils (%) (Auto) 0 % (0-3) Neutrophils # (Auto) 14.6 x10^3uL (1.8-7.7) H Lymphocytes # (Auto) 2.2 x10^3/uL (1.0-4.8) Monocytes # (Auto) 1.5 x10^3/uL (0.0-1.1) H Eosinophils # (Auto) 0.0 x10^3/uL (0.0-0.7) Basophils # (Auto) 0.1 x10^3/uL (0.0-0.2) Platelet Estimate Pending Vital Signs: Vital Signs Date Time Temp Pulse Resp B/P (MAP) Pulse Ox O2 Delivery O2 Flow Rate FiO2 05/05/20 12:10 96.7 88 209/118 (148) 92 (KRISTI ARVIZU CAD DRAFTSMAN) EKG: EKG: [] (KRISTI ARVIZU APRN) Radiology/Procedures: Radiology/Procedures: [] (KRISTI ARVIZU APRN) Radiology/Procedures: IMAGING REPORT Signed PATIENT: ASHLEY MUNGUIA ACCOUNT: [id number] : 1935 LOCATION: ICU AGE: 85 SEX: M EXAM STATUS: ADM IN ORD. PHYSICIAN: MARTINE HUTCHINSON DO REASON: sepsis??, interstital opacities bilaterally seen on cxr PROCEDURE: CT CHEST ABDOMEN PELVIS WO CT chest, abdomen and pelvis without contrast PQRS statement: CT scans at this facility use dose reduction including either automated exposure control, iterative reconstructions, and /or weight based radiation dosing via mA and kV modification when appropriate to reduce radiation dose to as low as reasonably achievable. HISTORY: Sepsis. Pulmonary infiltrates. COMPARISON: Chest x-ray May 05, 2020, CT abdomen and pelvis January 30, 2020. Chest findings: T11 compression fracture treated with bone cement with bony retropulsion contributing to spinal canal stenosis. Postoperative change of coronary bypass surgery. Cardiac pacemaker. Heart size upper limits normal. Calcified plaque coronary arteries and thoracic aorta. Pulmonary vessels and esophagus are unremarkable. No enlarged adenopathy in the chest. Mild dependent bilateral pleural effusions with a thickness of the lung bases 4 cm. There is mild passive atelectasis and volume loss of the lower lobes of the pleural effusions, and pulmonary interstitial thickening likely edema. Calcified granulomas right upper lobe and right hilum. Chronic appearing posterior right seventh rib fracture with sclerotic bony margins. Numerous old rib deformities. Abdomen findings: Bilateral perinephric edema. No urinary calculi or hydronephrosis. Extensive calcified likely aorta and iliac arteries. Liver, gallbladder, adrenals, spleen unremarkable. Moderate atrophy of the pancreas. 2 cm fatty umbilical abdominal wall hernia. Sigmoid diverticulosis. Appendix is negative. No obstruction or inflammation the GI tract. No abdominal fluid. Pelvis findings: Moderate volume of stool within the rectum. Prostatectomy. Bladder and bones are unremarkable. IMPRESSION: 1. Pulmonary interstitial edema at the lung bases and mild pleural effusions could be due to congestive heart failure or volume overload. 2. No acute process in the abdomen or pelvis. 3. Chronic findings as described above. Electronically signed by: Shereen Ordoñez MD (05/05/2020 6:11 PM) [facility] [place] DICTATED AND SIGNED BY: SHEREEN ORDOÑEZ MD DATE: 05/05/201800 CC: AJ MADRID MD; DONOVAN LAWTON; MATRINE HUTCHINSON DO ~MTH0 0 (MARTINE HUTCHINSON DO) Heart Score: Risk Factors: Risk Factors: DM, Current or recent (<one month) smoker, HTN, HLP, family history of CAD, obesity. Risk Scores: Score 0 - 3: 2.5% MACE over next 6 weeks - Discharge Home Score 4 - 6: 20.3% MACE over next 6 weeks - Admit for Clinical Observation Score 7 - 10: 72.7% MACE over next 6 weeks - Early Invasive Strategies (KRISTI ARVIZU APRN) Course & Med Decision Making: Course & Med Decision Making Pertinent Labs and Imaging studies reviewed. (See chart for details) []Patient is a 85-year-old male who presents with altered mental status, nausea/vomiting. Daughter brings patient into the emergency room stating "he started acting restless and irritable about 8 AM this morning". He started saying "I am going to , I cannot breathe". Patient is complaining of nausea and vomiting upon arrival to the emergency room. Daughter states that she gave patient anxiety medication at 8 AM. Patient has a history of anxiety, SIADH, hypertension, diabetes, Alzheimer's. Ativan given for anxiety.NS Bolus given for dehydration. Lactic 8.9. White count 18.9. Patient's tachypneic at 28. Patient placed on 2 L nasal cannula 94%. took over patient care. (KRISTI ARVIZU APRN) Course & Med Decision Making Concern for septic shock (type A maninder?) +/- HHS or type B MANINDER (although creatinine is roughly baseline). H/o covid -could have superimposed infiltrates. Patient was started on broad-spectrum antibiotics. Accepted by Dr. Madrid who recommended NS fluids at 100. Daughter aware pt is in critical condition. I have spoken with the patient and/or caregivers. I have explained the patient's condition, diagnosis and treatment plan based on the information available to me at this time. I have answered the patient's and/or caregivers questions and answered any concerns. The patient and/or caregivers have as good an understanding of the patient's diagnosis, condition and treatment plan as can be expected at this point. The patient has been stabilized within the capability of the emergency department. The patient will be transported for further care and management or will be moved to an observation or inpatient service. I have communicated with the staff or medical practitioner taking over this patient's care-I spoke to patient's daughter at bedside. Patient is a DNR CODE STATUS. Critical Care: Authorized and Performed by: Martine Hutchinson DO Total critical care time: approximately 45 minutes Due to a high probability of clinically significant, life threatening deterioration, the patient required my highest level of preparedness to intervene emergently and I personally spent this critical care time directly and personally managing the patient. This critical care time included obtaining a history; examining the patient; pulse oximetry; ventilator management if necessary; ordering and review of studies; arranging urgent treatment with development of a management plan; evaluation of patient's response to treatment; frequent reassessment; discussion with patient/family; and, discussions with other providers. This critical care time was performed to assess and manage the high probability of imminent, life-threatening deterioration that could result in multi-organ failure. It was exclusive of separately billable procedures and treating other patients and teaching time. Please see MDM section and the rest of the note for further information on patient assessment and treatment. (MARTINE HUTCHINSON DO) Dragon Disclaimer: Dragon Disclaimer: This electronic medical record was generated, in whole or in part, using a voice recognition dictation system. (KRISTI ARVIZU APRN) Departure Departure: Impression: Primary Impression: Septic shock Additional Impression: Lactic acidosis Disposition: 09 ADMITTED INPT THIS HOSP Admitting Physician: Aj Madrid (KRISTI ARVIZU APRN) Admitting Physician: Aj Madrid (MARTINE HUTCHINSON DO) Condition: CRITICAL Referrals: DONOVAN LAWTON (PCP) KRISTI ARVIZU APRN May 05, 2020 13:31 MARTINE HUTCHINSON DO May 05, 2020 16:57
--- NOTE | 2020-05-05 13:50 | EKG ---
[address] [address] Test Date: 2020-05-05 Test Time: 13:02:52 Pat Name: ASHLEY MUNGUIA Department: Room: Gender: M Speech Language Pathologist Prn: JULIA : 1935 Requested By: KRISTI ARVIZU Order Number: [id number] Reading MD: Measurements Intervals [place] Rate: 106 P: 0 AL: 192 QRS: 87 QRSD: 104 T: 29 QT: 342 QTc: 456 Interpretive Statements SINUS TACHYCARDIA NO SPECIFIC ECG ABNORMALITIES RI6.02 No previous ECG available for comparison
[2020-05-05 13:51] LABS: CREATININE 1.5 mg/dL (0.7-1.3); GFR 44.3; POTASSIUM 4.4 mmol/L (3.5-5.1)
[2020-05-05 13:56] LABS: ALBUMIN 3.2 g/dL (3.4-5.0); ALBUMIN/GLOBULIN RATIO 0.7 (1.0-1.7); TOTAL BILIRUBIN 0.7 mg/dL (0.2-1.0); TOTAL PROTEIN 7.5 g/dL (6.4-8.2)
[2020-05-05 14:19] LABS: % LYMPHS 13 % (24-48); % MONOS 11 % (0-10); % SEGS 76 % (35-66)
[2020-05-05 14:20] LABS: PLT ESTIMATE ADEQUATE (ADEQUATE)
[2020-05-05] MEDS ORDERED: IV NORMAL SALINE 1,000ML 2,040 ML IV SCH ×2 (15:00)
[2020-05-05] MEDS ORDERED: VANCOMYCIN PER PHARMACY MC PRN (15:00)
--- NOTE | 2020-05-05 15:37 | RAD ---
EXAMINATION: CT HEAD/BRAIN WO (CT HEAD WITHOUT IV CONTRAST) CLINICAL HISTORY: Altered mental status TECHNIQUE: Serial axial images without IV contrast were obtained from the vertex to the foramen magnu m. CT Dose Reduction Employed: One or more of the following individualized dose reduction techniques wer e utilized for this examination: 1. Automated exposure control 2. Adjustment of the mA and/or kV ac cording to patient size 3. Use of iterative reconstruction technique. COMPARISON: None FINDINGS: Acute Change: No evidence of an acute infarct or other acute parenchymal process. Hemorrhage: No evidence of acute intracranial hemorrhage. Mass Lesion/Mass Effect: No evidence of intracranial mass or extraaxial fluid collection. No signific ant mass effect. Chronic Change: Scattered patchy foci of hypoattenuation in the supratentorial white matter, nonspeci fic but likely represents mild microvascular ischemia. Atherosclerotic calcification of the anterior and posterior circulation. Parenchyma: Moderate generalized volume loss. Parenchyma otherwise within normal limits for age. Ventricles: Ventricular enlargement concordant with degree of parenchymal volume loss. Paranasal Sinuses and Skull Base: Visualized paranasal sinuses clear. Visualized skull base and soft tissues unremarkable. IMPRESSION: No evidence of acute intracranial abnormality. Electronically signed by: Parrish Ibarra DO (05/05/2020 3:35 PM) [id number]
[2020-05-05 15:57] LABS: CLARITY,URINE HAZY; COLOR,URINE YELLOW
[2020-05-05 15:58] LABS: BACTERIA,URINE FEW /HPF (0-FEW); BILIRUBIN,URINE NEG (NEG); GLUCOSE,URINE >=1000 mg/dL (NEG); NITRITE,URINE NEG (NEG); RBC,URINE RARE /HPF (0-2); UROBILINOGEN,URINE 0.2 mg/dL (0.2 mg/dL); WBC,URINE 0 /HPF (0-4)
[2020-05-05 15:59] LABS: SQUAMOUS EPITHELIAL CELL,UR OCC /LPF
[2020-05-05] MEDS ORDERED: VANCOMYCIN 2 GM in IV NORMAL SALINE 500ML 500 ML IV ONE (16:00)
[2020-05-05 16:35] LABS: BGAS PH 7.43 (7.35-7.46)
[2020-05-05] MEDS ORDERED: IV NORMAL SALINE 1,000ML 1,000 ML IV SCH ×2 (17:00→19:30)
[2020-05-05] MEDS ORDERED: AZTREONAM 2 GM in IV NORMAL SALINE 100ML 100 ML IV SCH (18:00)
--- NOTE | 2020-05-05 18:13 | RAD ---
CT chest, abdomen and pelvis without contrast PQRS statement: CT scans at this facility use dose reduction including either automated exposure cont rol, iterative reconstructions, and /or weight based radiation dosing via mA and kV modification when appropriate to reduce radiation dose to as low as reasonably achievable. HISTORY: Sepsis. Pulmonary infiltrates. COMPARISON: Chest x-ray May 05, 2020, CT abdomen and pelvis January 30, 2020. Chest findings: T11 compression fracture treated with bone cement with bony retropulsion contributing to spinal canal stenosis. Postoperative change of coronary bypass surgery. Cardiac pacemaker. Heart size upper limits normal. Calcified plaque coronary arteries and thoracic aorta. Pulmonary vessels an d esophagus are unremarkable. No enlarged adenopathy in the chest. Mild dependent bilateral pleural e ffusions with a thickness of the lung bases 4 cm. There is mild passive atelectasis and volume loss o f the lower lobes of the pleural effusions, and pulmonary interstitial thickening likely edema. Calci fied granulomas right upper lobe and right hilum. Chronic appearing posterior right seventh rib fract ure with sclerotic bony margins. Numerous old rib deformities. Abdomen findings: Bilateral perinephric edema. No urinary calculi or hydronephrosis. Extensive calcif ied likely aorta and iliac arteries. Liver, gallbladder, adrenals, spleen unremarkable. Moderate atro phy of the pancreas. 2 cm fatty umbilical abdominal wall hernia. Sigmoid diverticulosis. Appendix is negative. No obstruction or inflammation the GI tract. No abdominal fluid. Pelvis findings: Moderate volume of stool within the rectum. Prostatectomy. Bladder and bones are unr emarkable. IMPRESSION: 1. Pulmonary interstitial edema at the lung bases and mild pleural effusions could be due to congesti ve heart failure or volume overload. 2. No acute process in the abdomen or pelvis. 3. Chronic findings as described above. Electronically signed by: Dimitrios Ordoñez MD (05/05/2020 6:11 PM) [facility]
[2020-05-05 19:26] VITALS: BP 139/117
[2020-05-05 20:00] VITALS: BP 194/111
[2020-05-05] MEDS: INSULIN REGULAR VIAL 100 UNIT in IV NORMAL SALINE 100ML 100 ML IV PRN (20:17)
[2020-05-05] MEDS: MEROPENEM 500 MG in IV NORMAL SALINE 50ML 50 ML IV SCH (20:23)
[2020-05-05 20:41] LABS: CALCIUM 9.2 mg/dL (8.5-10.1); CREATININE 1.6 mg/dL (0.7-1.3); GFR 41.1; PHOSPHORUS 3.5 mg/dL (2.6-4.7)
[2020-05-05 21:00] VITALS: BP 168/82
[2020-05-05 22:00] VITALS: BP 145/83
[2020-05-05 23:00] VITALS: BP 138/73
[2020-05-06] VITALS (29 sets, daily range): BP systolic 104–182; BP diastolic 46–105
[2020-05-06] MEDS: IV DEXTROSE 5 %-0.2 % NACL 1,000 ML IV SCH ×2 (00:59→16:37)
[2020-05-06] MEDS: INSULIN REGULAR VIAL 100 UNIT in IV NORMAL SALINE 100ML 100 ML IV PRN (05:05)
[2020-05-06 07:04] LABS: BASO # 0.1 x10^3/uL (0.0-0.2); BASO % 0 % (0-3); EOS % 0 % (0-3); HEMOGLOBIN 12.3 g/dL (13.0-17.5); LYMPH # 1.8 x10^3/uL (1.0-4.8); LYMPH % 7 % (24-48); MEAN CORPUSCULAR HEMOGLOBIN 29 pg (25-35); MEAN CORPUSCULAR HGB CONC 32 g/dL (31-37); MEAN CORPUSCULAR VOLUME 91 fL (79-100); MONO # 2.7 x10^3/uL (0.0-1.1); MONO % 10 % (0-9); NEUT # 22.6 x10^3uL (1.8-7.7); NEUT % 83 % (31-73); PLATELET COUNT 243 x10^3/uL (140-400); RED BLOOD COUNT 4.19 x10^6/uL (4.30-5.70); RED CELL DISTRIBUTION WIDTH 13.9 % (11.5-14.5); WHITE BLOOD COUNT 27.2 x10^3/uL (4.0-11.0)
[2020-05-06 07:15] LABS: ALBUMIN 3.1 g/dL (3.4-5.0); ALBUMIN/GLOBULIN RATIO 0.8 (1.0-1.7); CREATININE 1.5 mg/dL (0.7-1.3); GFR 44.3; POTASSIUM 3.5 mmol/L (3.5-5.1); TOTAL BILIRUBIN 0.8 mg/dL (0.2-1.0); TOTAL PROTEIN 7.1 g/dL (6.4-8.2)
[2020-05-06] MEDS: MEROPENEM 500 MG in IV NORMAL SALINE 50ML 50 ML IV SCH ×2 (08:13→20:30)
--- NOTE | 2020-05-06 16:32 | HP ---
ADMIT DATE: 05/05/2020 HISTORY OF PRESENT ILLNESS: The patient is an 85-year-old male patient, who resides at [facility] and was brought to the Emergency Room with altered mental status, nausea and vomiting. The daughter brought him into the Emergency Room stating that he started acting restless and irritable about 8:00 a.m. in the morning. He started saying "I am going to , I can't breathe." The patient is complaining of nausea and vomiting upon arrival to the Emergency Room. His daughter stated she gave him anxiety medication around 8:00 a.m. The patient has a history of anxiety, SIADH, hypertension, diabetes, Alzheimer disease. He was extensively investigated in the Emergency Room and apparently has extensive lab work, which showed that he has leukocytosis. His blood sugar was high also at 317 and has had extensive imaging studies and the patient was admitted with questionable septic shock, lactic acidosis and possible DKA. We started him on IV antibiotic and also insulin drip together with IV fluid, after obtaining blood culture and sensitivity. PAST MEDICAL HISTORY: Significant for coronary artery disease, cancer, dementia, diverticulitis, type 2 diabetes, TIA. He also has history significant for hyponatremia, prostate cancer, dementia of Alzheimer type and history of shingles before. PAST SURGICAL HISTORY: Significant for coronary artery bypass graft surgery, permanent pacemaker placement, vertebroplasty, cervical spine fusion, transurethral resection of the prostate and cancer surgery. ALLERGIES: HE IS ALLERGIC TO PENICILLIN AND HYDROCODONE. FAMILY HISTORY: Noncontributory. SOCIAL HISTORY: He lives with his in assisted living facility. He apparently does not smoke, drink alcohol or use any recreational drugs. His daughter is his DPOA. MEDICATIONS: He is on the following medications: He is on metoprolol 25 mg at bedtime, metoprolol 50 mg daily, losartan potassium 25 mg once a day. He is on aspirin 81 mg once a day, acetaminophen 325 mg once a day, escitalopram oxalate 10 mg once a day, alprazolam 0.25 mg every 4 hours, alprazolam 0.25 mg at bedtime scheduled. He is on Namenda 10 mg twice a day, lactulose 15 mL daily. He is on ____ ClearLax 119 grams p.o. daily. He is on Protonix 40 mg once a day, metformin 500 mg 3 times a day. He is on sitagliptin phosphate 100 mg tablet once a day and glimepiride 4 mg once a day, ____ at bedtime. PHYSICAL EXAMINATION: GENERAL: On arrival to the Emergency Room, the patient was lethargic, but arousable. He was pale, but no jaundice, cyanosis or thyromegaly. No jugular venous distension. No limb edema. VITAL SIGNS: His heart rate on arrival was 125, blood pressure was 188/107. His temperature was actually 103.2, respiratory rate was 44 and oxygen saturation was 97% on 2 liters of oxygen. HEAD, EYES, EARS, NOSE AND THROAT: Showed normocephalic, atraumatic. NECK: Supple. HEART: Showed normal first and second heart sounds. No gallop, rub or murmur. CHEST: Clear to auscultation. No crepitation or rhonchi. ABDOMEN: Distended, soft, nontender. NEUROLOGIC: He was lethargic, but arousable. All cranial nerves intact. EXTREMITIES: He moves extremities without difficulty, although he was mostly bed bound. LABORATORY DATA: His lab work on admission showed a white cell count of 18,400, hemoglobin 12.6, hematocrit 39.7, MCV was 93 and platelet count of 329,000 and manual differential showed 79% polymorphs, 12% lymphocytes. His chemistry on arrival showed his serum sodium was 136, potassium 4.4, chloride 97, bicarbonate 19, anion gap of 20, BUN 17, creatinine 1.5, estimated GFR was 44 mL per minute. His glucose was 400. Lactic acid was 8.9, calcium was 9. Total bilirubin is normal. AST, ALT, alkaline phosphatase are elevated. Total protein 7.5, albumin 3.2. His blood gases showed a pH of 7.43, pCO2 of 21, pO2 of 81, bicarbonate 14 and oxygen saturation was 97% on FiO2 of 28%. His prothrombin time, INR and aPTT were normal. His urinalysis showed the urine was yellow, hazy with a pH of 5, specific gravity 1.020. There was small amount of protein, large amount of glucose, small amount of ketones, trace of blood, negative for nitrite and bilirubin, negative for leukocyte esterase, rare rbc's, rare wbc's, and very few bacteria. His coronavirus was detected positive on 01/30/2020. We did send blood for culture and sensitivity, the result of which is still pending at the time of this dictation. The patient has received IV fluid as well as vancomycin, metronidazole and aztreonam and was admitted to the ICU where I switched him to meropenem as well as Zyvox and start him on insulin drip as well as IV fluid. FINAL DIAGNOSIS: Sepsis, probably source of infection is not clear as his urine culture is normal. His chest x-ray showed mild interstitial opacities bilaterally, portion of this could be chronic in nature, but superimposed mild edema and interstitial infiltrate is not excluded. CT scan of the head showed no evidence of acute intracranial abnormalities and CT scan of the chest, abdomen and pelvis showed pulmonary interstitial edema at the lung bases and mild pleural effusion could be due to congestive heart failure or volume overload. No acute process in the abdomen and pelvis chronic finding including numerous old rib deformities, bilateral perinephric edema and urinary calculi or hydronephrosis, extensive calcified, likely aorta and iliac arteries, liver, gallbladder, adrenal, spleen unremarkable and moderate atrophy of the pancreas. A 7 cm fatty umbilical abdominal wall hernia, sigmoid diverticulosis, appendix is normal. No obstruction or inflammation. GI tract, no abdominal fluid. We will obviously continue with insulin drip. Continue with IV fluid. Continue with IV antibiotic. Await the results of culture and sensitivity and decide further management accordingly. RAGHAVENDRA ORTIZ MD DR: ANTHONY/luis m JOB#: [id number] / [id number]
[2020-05-06] MEDS ORDERED: DIGOXIN IV 500 MCG/2 ML AMPUL. IV ONE (17:15)
[2020-05-06] MEDS: LACTOBACILLUS RHAMNOSUS GG 1 CAPSULE. PO SCH (19:29)
[2020-05-06 20:39] LABS: BASO # 0.1 x10^3/uL (0.0-0.2); BASO % 0 % (0-3); EOS % 0 % (0-3); HEMATOCRIT 38.2 % (39.0-53.0); HEMOGLOBIN 12.2 g/dL (13.0-17.5); LYMPH # 1.4 x10^3/uL (1.0-4.8); LYMPH % 5 % (24-48); MEAN CORPUSCULAR HEMOGLOBIN 29 pg (25-35); MEAN CORPUSCULAR HGB CONC 32 g/dL (31-37); MEAN CORPUSCULAR VOLUME 90 fL (79-100); MONO # 3.7 x10^3/uL (0.0-1.1); MONO % 13 % (0-9); NEUT # 24.1 x10^3uL (1.8-7.7); NEUT % 83 % (31-73); PLATELET COUNT 221 x10^3/uL (140-400); RED BLOOD COUNT 4.25 x10^6/uL (4.30-5.70); RED CELL DISTRIBUTION WIDTH 14.1 % (11.5-14.5); WHITE BLOOD COUNT 29.2 x10^3/uL (4.0-11.0)
[2020-05-06 20:55] LABS: CALCIUM 8.7 mg/dL (8.5-10.1); CREATININE 1.4 mg/dL (0.7-1.3); GFR 47.9; POTASSIUM 3.2 mmol/L (3.5-5.1)
[2020-05-06 21:08] LABS: ALBUMIN 3.1 g/dL (3.4-5.0); ALBUMIN/GLOBULIN RATIO 0.8 (1.0-1.7); TOTAL BILIRUBIN 0.8 mg/dL (0.2-1.0); TOTAL PROTEIN 7.1 g/dL (6.4-8.2)
--- NOTE | 2020-05-06 21:23 | RAD ---
Exam: Chest one view INDICATION: Change in status TECHNIQUE: Frontal view of the chest Comparisons: 01/02/2021 FINDINGS: Pacer with leads terminating in the right atrium and ventricle. Sternotomy wires are noted. Surgical clips overlying the left heart border. The cardiomediastinal silhouette and pulmonary vessels are within normal limits. Hazy opacities lungs bilaterally. No pleural effusion. IMPRESSION: Findings likely related to pulmonary edema with trace bilateral pleural effusions. Electronically signed by: Porsha Tillman MD (05/06/2020 9:20 PM) [facility]
[2020-05-06] MEDS: ACETAMINOPHEN 650 MG SUPP.RECT. PR PRN (21:51)
[2020-05-07] VITALS (24 sets, daily range): BP systolic 104–155; BP diastolic 52–92
[2020-05-07] MEDS: IV DEXTROSE 5 %-0.2 % NACL 1,000 ML IV SCH (06:04)
[2020-05-07] MEDS: INSULIN REGULAR VIAL 100 UNIT in IV NORMAL SALINE 100ML 100 ML IV PRN (06:05)
--- NOTE | 2020-05-07 06:16 | RAD ---
Study: XR CHEST 1V Indication: Follow-up findings of congestive heart failure/volume overload. Comparison: 05/06/2020 Findings: Status post median sternotomy. Dual-lead left chest wall pacer. Greater degree of patient rotation from the comparison as well as decreased right lung volume. Increa sed opacification at the right lung apex. Persistent generalized increased interstitial markings. Bib asilar volume loss slightly progressed on the left. No pneumothorax. Osteopenia and vascular calcifications. Impression: 1. Development of hazy opacification at the right lung apex. Right lung volumes are diminished from t he prior. A component of right upper lobe collapse is possible noting shallow inspiration and patient rotation. Recommend attention on follow-up. 2. Persistent generalized increased interstitial markings typical of congestive heart failure/volume overload. No increasing effusion or pneumothorax. Electronically signed by: MARGARETH LINN MD (05/07/2020 6:14 AM) [facility]
[2020-05-07 07:57] LABS: HEMATOCRIT 36.7 % (39.0-53.0); HEMOGLOBIN 11.9 g/dL (13.0-17.5); RED BLOOD COUNT 4.04 x10^6/uL (4.30-5.70); RED CELL DISTRIBUTION WIDTH 14.1 % (11.5-14.5); WHITE BLOOD COUNT 27.8 x10^3/uL (4.0-11.0)
[2020-05-07] MEDS: MEROPENEM 500 MG in IV NORMAL SALINE 50ML 50 ML IV SCH ×2 (08:00→19:43)
[2020-05-07 08:04] LABS: ALBUMIN 2.8 g/dL (3.4-5.0); ALBUMIN/GLOBULIN RATIO 0.8 (1.0-1.7); CALCIUM 8.6 mg/dL (8.5-10.1); CREATININE 1.2 mg/dL (0.7-1.3); GFR 57.3; TOTAL BILIRUBIN 0.9 mg/dL (0.2-1.0); TOTAL PROTEIN 6.5 g/dL (6.4-8.2)
[2020-05-07 08:26] LABS: POTASSIUM 2.7 mmol/L (3.5-5.1)
[2020-05-07] MEDS ORDERED: POTASSIUM CHLORIDE 20 MEQ in IV DEXTROSE 5 %-0.45 % NACL 1,000 ML IV SCH (08:30)
[2020-05-07] MEDS: LACTOBACILLUS RHAMNOSUS GG 1 CAPSULE. PO SCH ×2 (08:36→19:43)
[2020-05-07] MEDS: POTASSIUM CL 20MEQ D5-0.45NACL 1,000 ML IV SCH ×3 (08:52→21:20)
[2020-05-07] MEDS: ACETAMINOPHEN 650 MG SUPP.RECT. PR PRN (08:53)
--- NOTE | 2020-05-07 13:23 | EKG ---
[address] [address] Test Date: 2020-05-06 Test Time: 11:26:10 Pat Name: ASHLEY MUNGUIA Department: Room: [facility] 1 Gender: M Matrix Inspector: : 1935 Requested By: RAGHAVENDRA ORTIZ Order Number: [id number] Reading MD: Measurements Intervals [place] Rate: 133 P: 0 NM: 160 QRS: 87 QRSD: 98 T: -48 QT: 276 QTc: 412 Interpretive Statements SINUS TACHYCARDIA ATRIAL PREMATURE COMPLEX(ES) ST & T ABNORMALITY, CONSIDER ANTEROLATERAL ISCHEMIA OR LEFT VENTRICULAR STRAIN T ABNORMALITY IN ANTERIOR LEADS ABNORMAL ECG RI6.01 No previous ECG available for comparison
[2020-05-07] MEDS ORDERED: POTASSIUM BICARB 10 MEQ EFFERVESCENT TABLET. PO ONE (14:30)
--- NOTE | 2020-05-07 16:35 | PDOC2 ---
CONSULT DOS: DATE: 05/07/20 TIME: 16:28 Reason for Consult: Septic shock and history of coronary disease Referring Physician: Dr. Madrid Chief Complaint Mental status changes Source: Chart review Problem List Problems Medical Problems: (1) Lactic acidosis Status: Acute (2) Septic shock Status: Acute History of Present Illness 85-year-old male resident of [facility] with history of dementia, coronary disease and sick sinus syndrome s/p permanent pacemaker implantation was brought to ED by family with mental status changes, nausea and vomiting. He was found to be in sepsis with lactic acidosis and possible diabetic ketoacidosis and was started on intravenous antibiotics and insulin drip and admitted for further management. Cardiology has been consulted for his previous history of coronary disease and sick sinus syndrome. Patient is a very poor historian secondary to his dementia, appears to be comfortable without any history of chest pain or shortness of breath. Past Medical History Coronary artery disease s/p CABG Sick sinus syndrome s/p permanent pacemaker implantation Hyponatremia Alzheimer's dementia Prostate cancer Diabetes mellitus type 2 TIA Diverticulitis Past Surgical History Coronary artery bypass surgery, permanent pacemaker implantation, vertebroplasty, cervical spine fusion Family History Not contributory Social History Patient is a resident of assisted living facility and is a non-smoker and a non drinker Current Medications Current Medications Lorazepam (Ativan) 0.5 mg 1X ONCE PO ; Start 05/05/20 at 12:30; Stop 05/05/20 at 12:31; Status DC Prochlorperazine Edisylate (Compazine) 10 mg 1X ONCE IV Last administered on 05/05/20at 13:10; Start 05/05/20 at 12:30; Stop 05/05/20 at 12:31; Status DC Lorazepam (Ativan Inj) 2 mg STK-MED ONCE .ROUTE ; Start 05/05/20 at 12:59; Stop 05/05/20 at 12:59; Status DC Lorazepam (Ativan Inj) 0.5 mg 1X ONCE IVP ; Start 05/05/20 at 13:45; Stop 05/05/20 at 13:46; Status DC Sodium Chloride 2,040 ml @ 2,040 mls/hr Q1H IV ; Start 05/05/20 at 15:00; St atus Cancel Aztreonam 2 gm/ Sodium Chloride 100 ml @ 200 mls/hr Q6HRS IV Last administered on 05/05/20at 18:03; Start 05/05/20 at 18:00; Stop 05/05/20 at 19:16; Status DC Metronidazole 100 ml @ 100 mls/hr Q12H IV Last administered on 05/05/20at 16:55; Start 05/05/20 at 17:00; Stop 05/05/20 at 19:16; Status DC Vancomycin HCl (Vanco Per Pharmacy) 1 each PRN DAILY PRN MC SEE COMMENTS; Start 05/05/20 at 15:00; Stop 05/05/20 at 19:26; Status DC Sodium Chloride 2,040 ml @ 2,040 mls/hr Q1H IV Last administered on 05/05/20at 15:00; Start 05/05/20 at 15:00; Stop 05/05/20 at 19:43; Status DC Vancomycin HCl 2 gm/Sodium Chloride 500 ml @ 250 mls/hr 1X ONCE IV ; Start 05/05/20 at 16:00; Stop 05/05/20 at 19:16; Status DC Sodium Chloride 1,000 ml @ 100 mls/hr Q10H IV ; Start 05/05/20 at 17:00; Stop 05/06/20 at 00:57; Status DC Meropenem 500 mg/ Sodium Chloride 50 ml @ 100 mls/hr Q12H IV Last administered on 05/07/20at 08:00; Start 05/05/20 at 20:00 Linezolid 300 ml @ 300 mls/hr Q12HR IV Last administered on 05/07/20at 09:40; Start 05/05/20 at 21:00; Stop 05/07/20 at 14:05; Status DC Insulin Human Regular 100 unit/ Sodium Chloride 101 ml @ 0 mls/hr CONT PRN PRN IV PER PROTOCOL Last administered on 05/07/20at 06:05; Start 05/05/20 at 19:30 Sodium Chloride 1,000 ml @ 75 mls/hr [id number] IV Last administered on 05/05/20at 19:30; Start 05/05/20 at 19:30; Stop 05/06/20 at 00:51; Status DC Dextrose/Sodium Chloride 1,000 ml @ 75 mls/hr [id number] IV Last administered on 05/07/20at 06:04; Start 05/06/20 at 01:00; Stop 05/07/20 at 09:23; Status DC Lactobacillus Rhamnosus (Culturelle) 1 cap BID PO ; Start 05/06/20 at 21:00 Digoxin (Lanoxin) 500 mcg 1X ONCE IV Last administered on 05/06/20at 17:10; Start 05/06/20 at 17:15; Stop 05/06/20 at 17:31; Status DC Acetaminophen (Tylenol Supp) 650 mg PRN Q4HRS PRN ND MILD PAIN / TEMP > 100.3'F Last administered on 05/07/20at 08:53; Start 05/06/20 at 21:45 Potassium Chloride 20 meq/ Dextrose/Sodium Chloride 1,010 ml @ 100 mls/hr Q10H6M IV ; Start 05/07/20 at 08:30; Stop 05/07/20 at 08:44; Status DC Potassium Chloride/Dextrose/ Sod Cl 1,000 ml @ 100 mls/hr Q10H IV Last administered on 05/07/20at 08:52; Start 05/07/20 at 08:45 Potassium Bicarbonate (Potassium Effervescent Tablet) 40 meq 1X ONCE PO Last administered on 05/07/20at 14:51; Start 05/07/20 at 14:30; Stop 05/07/20 at 14:35; Status DC Active Scripts Active Reported Clearlax (Polyethylene Glycol 3350) 119 Gm Powder 119 Gm PO DAILY PRN Lactulose 10 Gm/15 Ml Solution 15 Ml PO DAILY PRN Tylenol (Acetaminophen) 325 Mg Tablet 2 Tab PO Q6HRS PRN Metoprolol Tartrate 50 Mg Tablet 1 Tab PO DAILY Glimepiride 2 Mg Tablet 2.5 Tab PO DAILYWLUN Alprazolam 0.25 Mg Tablet 1 Tab PO HS Alprazolam 0.25 Mg Tablet 0.25 Mg PO Q4HRS PRN Aspirin Ec (Aspirin) 81 Mg Tablet. 1 Tab PO DAILY Mariah (Losartan Potassium) 25 Mg Tablet 25 Mg PO DAILYWLUN Januvia (Sitagliptin Phosphate) 100 Mg Tablet 1 Tab PO DAILY Cozaar (Losartan Potassium) 25 Mg Tablet 25 Mg PO DAILY Metoprolol Tartrate 25 Mg Tablet 1 Tab PO HS Glimepiride 4 Mg Tablet 1 Tab PO DAILYWBKFT Metformin Hcl 500 Mg Tablet 1 Tab PO TIDWMEALS Escitalopram Oxalate 10 Mg Tablet 1 Tab PO DAILY Pantoprazole Sodium 40 Mg Tablet. 1 Tab PO BIDBFRMEAL Namenda (Memantine Hcl) 10 Mg Tablet 1 Tab PO BID Allergies: Coded Allergies: Penicillins (Verified Allergy, Unknown, 05/05/20) hydrocodone (Verified Allergy, Unknown, 05/05/20) Review of System Full review of systems cannot be obtained secondary to dementia but briefly this is positive for nausea, vomiting and mental status changes and negative for chest pain or shortness of breath. General: Alert, No acute distress HEENT: Atraumatic Lungs: Clear to auscultation Heart: Regular rate Abdomen: Soft Extremities: No edema Neuro: Normal speech VITALS Vital Signs Date Time Temp Pulse Resp B/P (MAP) Pulse Ox O2 Delivery O2 Flow Rate FiO2 05/07/20 15:00 100 22 144/74 (97) 97 Room Air 05/07/20 12:00 97.7 05/07/20 09:00 2.0 Labs Laboratory Tests Test 05/05/20 16:45 05/05/20 18:15 05/05/20 20:08 05/05/20 20:14 Lactic Acid Level 4.9 mmol/L (0.4-2.0) Glucose (Fingerstick) 370 mg/dL (70-99) 343 mg/dL (70-99) Sodium Level 135 mmol/L (136-145) Potassium Level 5.0 mmol/L (3.5-5.1) Chloride Level 98 mmol/L (98-107) Carbon Dioxide Level 11 mmol/L (21-32) Anion Gap 26 (6-14) Blood Urea Nitrogen 22 mg/dL (8-26) Creatinine 1.6 mg/dL (0.7-1.3) Estimated GFR (Cockcroft-Gault) 41.1 Glucose Level 368 mg/dL (70-99) Calcium Level 9.2 mg/dL (8.5-10.1) Phosphorus Level 3.5 mg/dL (2.6-4.7) Acetone Level Neg (NEG) Test 05/05/20 21:15 05/05/20 22:18 05/05/20 23:20 05/06/20 00:22 Glucose (Fingerstick) 358 mg/dL (70-99) 351 mg/dL (70-99) 282 mg/dL (70-99) 239 mg/dL (70-99) Test 05/06/20 01:24 05/06/20 02:25 05/06/20 03:26 05/06/20 04:25 Glucose (Fingerstick) 119 mg/dL (70-99) 118 mg/dL (70-99) 101 mg/dL (70-99) 136 mg/dL (70-99) Test 05/06/20 05:26 05/06/20 06:25 05/06/20 06:28 05/06/20 07:56 Glucose (Fingerstick) 142 mg/dL (70-99) 158 mg/dL (70-99) 175 mg/dL (70-99) White Blood Count 27.2 x10^3/uL (4.0-11.0) Red Blood Count 4.19 x10^6/uL (4.30-5.70) Hemoglobin 12.3 g/dL (13.0-17.5) Hematocrit 38.0 % (39.0-53.0) Mean Corpuscular Volume 91 fL (79-100) Mean Corpuscular Hemoglobin 29 pg (25-35) Mean Corpuscular Hemoglobin Concent 32 g/dL (31-37) Red Cell Distribution Width 13.9 % (11.5-14.5) Platelet Count 243 x10^3/uL (140-400) Neutrophils (%) (Auto) 83 % (31-73) Lymphocytes (%) (Auto) 7 % (24-48) Monocytes (%) (Auto) 10 % (0-9) Eosinophils (%) (Auto) 0 % (0-3) Basophils (%) (Auto) 0 % (0-3) Neutrophils # (Auto) 22.6 x10^3uL (1.8-7.7) Lymphocytes # (Auto) 1.8 x10^3/uL (1.0-4.8) Monocytes # (Auto) 2.7 x10^3/uL (0.0-1.1) Eosinophils # (Auto) 0.0 x10^3/uL (0.0-0.7) Basophils # (Auto) 0.1 x10^3/uL (0.0-0.2) Sodium Level 138 mmol/L (136-145) Potassium Level 3.5 mmol/L (3.5-5.1) Chloride Level 102 mmol/L (98-107) Carbon Dioxide Level 20 mmol/L (21-32) Anion Gap 16 (6-14) Blood Urea Nitrogen 23 mg/dL (8-26) Creatinine 1.5 mg/dL (0.7-1.3) Estimated GFR (Cockcroft-Gault) 44.3 BUN/Creatinine Ratio 15 (6-20) Glucose Level 164 mg/dL (70-99) Lactic Acid Level 2.5 mmol/L (0.4-2.0) Calcium Level 9.0 mg/dL (8.5-10.1) Total Bilirubin 0.8 mg/dL (0.2-1.0) Aspartate Amino Transf (AST/SGOT) 190 U/L (15-37) Alanine Aminotransferase (ALT/SGPT) 204 U/L (16-63) Alkaline Phosphatase 156 U/L (46-116) Total Protein 7.1 g/dL (6.4-8.2) Albumin 3.1 g/dL (3.4-5.0) Albumin/Globulin Ratio 0.8 (1.0-1.7) Test 05/06/20 09:39 05/06/20 09:56 05/06/20 11:02 05/06/20 12:05 Glucose (Fingerstick) 146 mg/dL (70-99) 164 mg/dL (70-99) 135 mg/dL (70-99) Lactic Acid Level 2.4 mmol/L (0.4-2.0) Test 05/06/20 13:10 05/06/20 15:37 05/06/20 16:50 05/06/20 19:08 Glucose (Fingerstick) 131 mg/dL (70-99) 139 mg/dL (70-99) 132 mg/dL (70-99) 137 mg/dL (70-99) Test 05/06/20 20:20 05/06/20 21:16 05/06/20 22:22 05/06/20 23:28 White Blood Count 29.2 x10^3/uL (4.0-11.0) Red Blood Count 4.25 x10^6/uL (4.30-5.70) Hemoglobin 12.2 g/dL (13.0-17.5) Hematocrit 38.2 % (39.0-53.0) Mean Corpuscular Volume 90 fL (79-100) Mean Corpuscular Hemoglobin 29 pg (25-35) Mean Corpuscular Hemoglobin Concent 32 g/dL (31-37) Red Cell Distribution Width 14.1 % (11.5-14.5) Platelet Count 221 x10^3/uL (140-400) Neutrophils (%) (Auto) 83 % (31-73) Lymphocytes (%) (Auto) 5 % (24-48) Monocytes (%) (Auto) 13 % (0-9) Eosinophils (%) (Auto) 0 % (0-3) Basophils (%) (Auto) 0 % (0-3) Neutrophils # (Auto) 24.1 x10^3uL (1.8-7.7) Lymphocytes # (Auto) 1.4 x10^3/uL (1.0-4.8) Monocytes # (Auto) 3.7 x10^3/uL (0.0-1.1) Eosinophils # (Auto) 0.0 x10^3/uL (0.0-0.7) Basophils # (Auto) 0.1 x10^3/uL (0.0-0.2) Sodium Level 136 mmol/L (136-145) Potassium Level 3.2 mmol/L (3.5-5.1) Chloride Level 98 mmol/L (98-107) Carbon Dioxide Level 22 mmol/L (21-32) Anion Gap 16 (6-14) Blood Urea Nitrogen 18 mg/dL (8-26) Creatinine 1.4 mg/dL (0.7-1.3) Estimated GFR (Cockcroft-Gault) 47.9 BUN/Creatinine Ratio 13 (6-20) Glucose Level 158 mg/dL (70-99) Calcium Level 8.7 mg/dL (8.5-10.1) Total Bilirubin 0.8 mg/dL (0.2-1.0) Aspartate Amino Transf (AST/SGOT) 463 U/L (15-37) Alanine Aminotransferase (ALT/SGPT) 500 U/L (16-63) Alkaline Phosphatase 134 U/L (46-116) SS-[id number]-[id number]-Type Natriuretic Peptide 39156 pg/mL (0-449) Total Protein 7.1 g/dL (6.4-8.2) Albumin 3.1 g/dL (3.4-5.0) Albumin/Globulin Ratio 0.8 (1.0-1.7) Glucose (Fingerstick) 124 mg/dL (70-99) 154 mg/dL (70-99) 178 mg/dL (70-99) Test 05/07/20 00:36 05/07/20 01:39 05/07/20 02:46 05/07/20 03:52 Glucose (Fingerstick) 152 mg/dL (70-99) 135 mg/dL (70-99) 124 mg/dL (70-99) 132 mg/dL (70-99) Test 05/07/20 04:56 05/07/20 06:00 05/07/20 06:20 05/07/20 07:06 Glucose (Fingerstick) 139 mg/dL (70-99) 134 mg/dL (70-99) 146 mg/dL (70-99) White Blood Count 27.8 x10^3/uL (4.0-11.0) Red Blood Count 4.04 x10^6/uL (4.30-5.70) Hemoglobin 11.9 g/dL (13.0-17.5) Hematocrit 36.7 % (39.0-53.0) Mean Corpuscular Volume 91 fL (79-100) Mean Corpuscular Hemoglobin 29 pg (25-35) Mean Corpuscular Hemoglobin Concent 32 g/dL (31-37) Red Cell Distribution Width 14.1 % (11.5-14.5) Platelet Count 187 x10^3/uL (140-400) Sodium Level 136 mmol/L (136-145) Potassium Level 2.7 mmol/L (3.5-5.1) Chloride Level 99 mmol/L (98-107) Carbon Dioxide Level 23 mmol/L (21-32) Anion Gap 14 (6-14) Blood Urea Nitrogen 17 mg/dL (8-26) Creatinine 1.2 mg/dL (0.7-1.3) Estimated GFR (Cockcroft-Gault) 57.3 BUN/Creatinine Ratio 14 (6-20) Glucose Level 126 mg/dL (70-99) Calcium Level 8.6 mg/dL (8.5-10.1) Total Bilirubin 0.9 mg/dL (0.2-1.0) Aspartate Amino Transf (AST/SGOT) 531 U/L (15-37) Alanine Aminotransferase (ALT/SGPT) 698 U/L (16-63) Alkaline Phosphatase 119 U/L (46-116) Total Protein 6.5 g/dL (6.4-8.2) Albumin 2.8 g/dL (3.4-5.0) Albumin/Globulin Ratio 0.8 (1.0-1.7) Procalcitonin 0.56 ng/mL (0.00-0.10) Test 05/07/20 08:23 05/07/20 09:36 05/07/20 10:37 05/07/20 11:38 Glucose (Fingerstick) 126 mg/dL (70-99) 137 mg/dL (70-99) 193 mg/dL (70-99) 161 mg/dL (70-99) Test 05/07/20 12:48 05/07/20 13:52 05/07/20 14:57 Glucose (Fingerstick) 131 mg/dL (70-99) 123 mg/dL (70-99) 119 mg/dL (70-99) Assessment/Plan 1. Sepsis and lactic acidosis: Continue intravenous antibiotics and further work-up per IM. 2. Coronary artery disease s/p CABG, clinically stable and chest pain-free. Plan for outpatient 2D echocardiogram and possibly ischemic evaluation. Continue current secondary prevention measures 3. SSS s/p PPM implantation, clinically stable. Telemetry showed few very brief episodes of atrial fibrillation. We will continue to monitor. 4. Diabetes mellitus type 2 with possible DKA: Treat per IM 5. Alzheimer's dementia Thank you for your consultation LIN MARQUES MD May 07, 2020 16:35
[2020-05-08] VITALS (16 sets, daily range): BP systolic 105–149; BP diastolic 49–91
[2020-05-08 07:13] LABS: BASO % 0 % (0-3); EOS % 0 % (0-3); HEMATOCRIT 40.3 % (39.0-53.0); HEMOGLOBIN 13.2 g/dL (13.0-17.5); LYMPH # 2.2 x10^3/uL (1.0-4.8); LYMPH % 13 % (24-48); MEAN CORPUSCULAR HEMOGLOBIN 30 pg (25-35); MEAN CORPUSCULAR HGB CONC 33 g/dL (31-37); MEAN CORPUSCULAR VOLUME 91 fL (79-100); MONO # 2.7 x10^3/uL (0.0-1.1); MONO % 16 % (0-9); NEUT % 71 % (31-73); RED BLOOD COUNT 4.42 x10^6/uL (4.30-5.70); RED CELL DISTRIBUTION WIDTH 14.3 % (11.5-14.5)
[2020-05-08 07:29] LABS: ALBUMIN 2.6 g/dL (3.4-5.0); ALBUMIN/GLOBULIN RATIO 0.7 (1.0-1.7); CALCIUM 8.1 mg/dL (8.5-10.1); CREATININE 1.1 mg/dL (0.7-1.3); GFR 63.3; POTASSIUM 4.5 mmol/L (3.5-5.1); TOTAL PROTEIN 6.2 g/dL (6.4-8.2)
--- NOTE | 2020-05-08 07:33 | PN ---
DATE: 05/07/2020 SUBJECTIVE: The patient is resting, slightly propped up in bed, in no apparent distress. He is definitely more awake, alert, although confused. He is oriented to himself. PHYSICAL EXAMINATION: GENERAL: When I examined him, he looked well, slightly pale, but no jaundice, cyanosis or thyromegaly. No jugular venous distention. No limb edema. VITAL SIGNS: His heart rate was 92, blood pressure was 127/66, temperature 97.7, respiratory rate was 22 and an oxygen saturation of 97%. HEAD, EYES, EARS, NOSE AND THROAT: Showed normocephalic, atraumatic. NECK: Supple. HEART: Normal first and second heart sounds. No gallop, rub or murmur. CHEST: Clear to auscultation. No crepitation or rhonchi. ABDOMEN: Distended, soft, nontender. NEUROLOGIC: He is awake, alert, although disoriented. He actually was able to drink today. Our plan is to hopefully start him on ADA diet and discontinue the insulin drip, start him on sliding scale. His intake over the last 24 hours was 2640, output was 1800. LABORATORY DATA: As of this morning, his white cell count for some reason continued to be high at 27,800, hemoglobin 11.9, hematocrit 36.7, MCV 91, and platelet count of 187,000. His chemistry, however, showed that his serum sodium is 136, potassium was 2.7, chloride 99, bicarbonate 23, anion gap of 14, BUN 17, creatinine 1.2, estimated GFR was 57 mL per minute. His glucose 126, calcium was 8.6. Total bilirubin is normal. AST, ALT, alkaline phosphatase are elevated. His total protein was 6.5, albumin was 2.8. His procalcitonin was high at 0.56. His urinalysis was unremarkable. His blood cultures are so far negative with no growth after 2 days. ASSESSMENT: 1. Sepsis, probably the source of infection is not clear as his urinalysis was unremarkable. His chest x-ray showed mild interstitial opacities bilaterally. 2. Acute kidney injury that has improved. 3. Probably type B lactic acidosis and perhaps diabetic ketoacidosis for which he was on IV fluid and ketoacidosis responding very well. His blood sugar is now normal. His anion gap is down from 20 to 14 and his bicarbonate has risen from 11 to 23. PLAN: ____ eating and drinking, we will stop the insulin drip and IV fluid, probably could do some IV Lasix. I discontinued his Zyvox as his cultures are all negative. RAGHAVENDRA ORTIZ MD DR: ANTHONY/luis m JOB#: [id number] / [id number]
[2020-05-08] MEDS: MEROPENEM 500 MG in IV NORMAL SALINE 50ML 50 ML IV SCH ×2 (08:03→20:20)
[2020-05-08] MEDS: LACTOBACILLUS RHAMNOSUS GG 1 CAPSULE. PO SCH ×2 (08:04→20:07)
[2020-05-08] MEDS: INSULIN REGULAR VIAL 100 UNIT in IV NORMAL SALINE 100ML 100 ML IV PRN (08:42)
[2020-05-08] MEDS: POTASSIUM CL 20MEQ D5-0.45NACL 1,000 ML IV SCH ×2 (08:51→17:53)
[2020-05-08 09:01] LABS: PLATELET COUNT 196 x10^3/uL (140-400)
--- NOTE | 2020-05-08 13:17 | PN ---
DATE: 05/08/2020 SUBJECTIVE: The patient is awake, alert, resting slightly propped up in bed. On questioning him, he denied any complaint. The patient is actually more awake and alert and oriented today than before. According to nursing staff, he was able to drink water and had some applesauce, but when she tried to feed him toast, he started coughing and therefore we kept him n.p.o. PHYSICAL EXAMINATION: GENERAL: When I examined him today, he looked pale, but no jaundice or cyanosis. No lymphadenopathy, no thyromegaly. No jugular venous distention, no limb edema. VITAL SIGNS: His heart rate was 103. His blood pressure was 138/83. His temperature was 98.6 and his oxygen saturation was 96% on room air. HEAD, EYES, EARS, NOSE, AND THROAT: Showed normocephalic, atraumatic. NECK: Supple. HEART: Showed normal first and second heart sounds with no gallop, rub or murmur. CHEST: Clear to auscultation. No crepitation or rhonchi. ABDOMEN: Distended, soft, nontender. No guarding or rigidity. No organomegaly. All hernial orifices intact. Bowel sounds normal. NEUROLOGIC: He is definitely more awake, alert, more talkative today. Moves all his extremities without difficulty. He apparently managed to get up, out of the bed with 2-person assist. His intake over the last 24 hours was 3500, output was 1425. LABORATORY DATA: As of this morning, his white cell count is down to 17,000, hemoglobin 13, hematocrit 40, MCV 91, and platelet count of 196,000 with normal manual differential. His chemistry showed a serum sodium 134, potassium 4.5, chloride 100, bicarbonate 21, anion gap of 13, BUN 11, creatinine 1.1, estimated GFR was 63. Glucose was 338, calcium was 8.1. Total bilirubin and alkaline phosphatase is normal. His AST is trending down 254, and his ALT also is trending down to 618. PLAN: My plan is to obviously continue with the IV fluid and insulin drip. Continue with IV antibiotic. We could try clear liquid diet this afternoon and await the evaluation by the speech therapist to find the safest consistency for him. RAGHAVENDRA ORTIZ MD DR: ANTHONY/luis m JOB#: [id number] / [id number]
[2020-05-09] VITALS (23 sets, daily range): BP systolic 95–161; BP diastolic 57–95
[2020-05-09] MEDS: POTASSIUM CL 20MEQ D5-0.45NACL 1,000 ML IV SCH ×2 (04:50→20:46)
[2020-05-09 06:31] LABS: HEMOGLOBIN 12.3 g/dL (13.0-17.5); RED BLOOD COUNT 4.22 x10^6/uL (4.30-5.70); RED CELL DISTRIBUTION WIDTH 13.9 % (11.5-14.5); WHITE BLOOD COUNT 12.3 x10^3/uL (4.0-11.0)
[2020-05-09 06:39] LABS: ALBUMIN 2.7 g/dL (3.4-5.0); ALBUMIN/GLOBULIN RATIO 0.7 (1.0-1.7); CALCIUM 8.6 mg/dL (8.5-10.1); GFR 70.7; POTASSIUM 3.4 mmol/L (3.5-5.1); TOTAL BILIRUBIN 0.7 mg/dL (0.2-1.0); TOTAL PROTEIN 6.4 g/dL (6.4-8.2)
[2020-05-09] MEDS: LACTOBACILLUS RHAMNOSUS GG 1 CAPSULE. PO SCH ×2 (07:41→21:00)
[2020-05-09] MEDS: MEROPENEM 500 MG in IV NORMAL SALINE 50ML 50 ML IV SCH ×2 (07:48→19:55)
--- NOTE | 2020-05-09 08:05 | PDOC ---
CARDIO Progress Notes Date & Time Date of Service DATE: 05/09/20 TIME: 07:57 Time of Evaluation 07:57 Subjective Notes confused, crawling out of bed, tachypneic Vitals Vitals Vital Signs Date Time Temp Pulse Resp B/P (MAP) Pulse Ox O2 Delivery O2 Flow Rate FiO2 05/09/20 06:05 99 22 95/57 (70) 97 Room Air 05/08/20 18:15 98.4 05/08/20 00:56 2.0 Weight Weight [ ] Input and Output I.O. Intake and Output 05/09/20 07:00 Intake Total 1050 ml Output Total 1125 ml Balance -75 ml Intake Oral 0 ml IV Total 1050 ml Output Urine Total 1125 ml Laboratory Labs Laboratory Tests Test 05/07/20 08:23 05/07/20 09:36 05/07/20 10:37 05/07/20 11:38 Glucose (Fingerstick) 126 mg/dL (70-99) 137 mg/dL (70-99) 193 mg/dL (70-99) 161 mg/dL (70-99) Test 05/07/20 12:48 05/07/20 13:52 05/07/20 14:57 05/07/20 16:10 Glucose (Fingerstick) 131 mg/dL (70-99) 123 mg/dL (70-99) 119 mg/dL (70-99) 158 mg/dL (70-99) Test 05/07/20 17:14 05/07/20 18:21 05/07/20 19:25 05/07/20 20:33 Glucose (Fingerstick) 162 mg/dL (70-99) 172 mg/dL (70-99) 169 mg/dL (70-99) 147 mg/dL (70-99) Test 05/07/20 21:39 05/07/20 22:43 05/07/20 23:48 05/08/20 00:51 Glucose (Fingerstick) 151 mg/dL (70-99) 145 mg/dL (70-99) 123 mg/dL (70-99) 100 mg/dL (70-99) Test 05/08/20 01:50 05/08/20 02:56 05/08/20 04:01 05/08/20 05:06 Glucose (Fingerstick) 103 mg/dL (70-99) 131 mg/dL (70-99) 152 mg/dL (70-99) 174 mg/dL (70-99) Test 05/08/20 06:07 05/08/20 06:45 05/08/20 07:33 05/08/20 08:40 Glucose (Fingerstick) 171 mg/dL (70-99) 238 mg/dL (70-99) 237 mg/dL (70-99) White Blood Count 17.0 x10^3/uL (4.0-11.0) Red Blood Count 4.42 x10^6/uL (4.30-5.70) Hemoglobin 13.2 g/dL (13.0-17.5) Hematocrit 40.3 % (39.0-53.0) Mean Corpuscular Volume 91 fL (79-100) Mean Corpuscular Hemoglobin 30 pg (25-35) Mean Corpuscular Hemoglobin Concent 33 g/dL (31-37) Red Cell Distribution Width 14.3 % (11.5-14.5) Platelet Count 196 x10^3/uL (140-400) Neutrophils (%) (Auto) 71 % (31-73) Lymphocytes (%) (Auto) 13 % (24-48) Monocytes (%) (Auto) 16 % (0-9) Eosinophils (%) (Auto) 0 % (0-3) Basophils (%) (Auto) 0 % (0-3) Neutrophils # (Auto) 12.0 x10^3uL (1.8-7.7) Lymphocytes # (Auto) 2.2 x10^3/uL (1.0-4.8) Monocytes # (Auto) 2.7 x10^3/uL (0.0-1.1) Eosinophils # (Auto) 0.0 x10^3/uL (0.0-0.7) Basophils # (Auto) 0.0 x10^3/uL (0.0-0.2) Sodium Level 134 mmol/L (136-145) Potassium Level 4.5 mmol/L (3.5-5.1) Chloride Level 100 mmol/L (98-107) Carbon Dioxide Level 21 mmol/L (21-32) Anion Gap 13 (6-14) Blood Urea Nitrogen 11 mg/dL (8-26) Creatinine 1.1 mg/dL (0.7-1.3) Estimated GFR (Cockcroft-Gault) 63.3 BUN/Creatinine Ratio 10 (6-20) Glucose Level 338 mg/dL (70-99) Calcium Level 8.1 mg/dL (8.5-10.1) Total Bilirubin 1.0 mg/dL (0.2-1.0) Aspartate Amino Transf (AST/SGOT) 254 U/L (15-37) Alanine Aminotransferase (ALT/SGPT) 680 U/L (16-63) Alkaline Phosphatase 114 U/L (46-116) Total Protein 6.2 g/dL (6.4-8.2) Albumin 2.6 g/dL (3.4-5.0) Albumin/Globulin Ratio 0.7 (1.0-1.7) Test 05/08/20 09:43 05/08/20 10:46 05/08/20 11:49 05/08/20 12:46 Glucose (Fingerstick) 204 mg/dL (70-99) 138 mg/dL (70-99) 101 mg/dL (70-99) 92 mg/dL (70-99) Test 05/08/20 13:49 05/08/20 14:50 05/08/20 15:53 05/08/20 16:57 Glucose (Fingerstick) 83 mg/dL (70-99) 93 mg/dL (70-99) 124 mg/dL (70-99) 108 mg/dL (70-99) Test 05/08/20 18:04 05/08/20 19:11 05/08/20 20:17 05/08/20 21:23 Glucose (Fingerstick) 161 mg/dL (70-99) 145 mg/dL (70-99) 119 mg/dL (70-99) 103 mg/dL (70-99) Test 05/08/20 22:27 05/08/20 23:34 05/09/20 00:40 05/09/20 00:41 Glucose (Fingerstick) 115 mg/dL (70-99) 158 mg/dL (70-99) 187 mg/dL (70-99) 177 mg/dL (70-99) Test 05/09/20 01:47 05/09/20 03:02 05/09/20 04:08 05/09/20 05:13 Glucose (Fingerstick) 183 mg/dL (70-99) 180 mg/dL (70-99) 158 mg/dL (70-99) 120 mg/dL (70-99) Test 05/09/20 05:42 05/09/20 06:15 05/09/20 07:20 White Blood Count 12.3 x10^3/uL (4.0-11.0) Red Blood Count 4.22 x10^6/uL (4.30-5.70) Hemoglobin 12.3 g/dL (13.0-17.5) Hematocrit 38.0 % (39.0-53.0) Mean Corpuscular Volume 90 fL (79-100) Mean Corpuscular Hemoglobin 29 pg (25-35) Mean Corpuscular Hemoglobin Concent 32 g/dL (31-37) Red Cell Distribution Width 13.9 % (11.5-14.5) Platelet Count 204 x10^3/uL (140-400) Sodium Level 142 mmol/L (136-145) Potassium Level 3.4 mmol/L (3.5-5.1) Chloride Level 106 mmol/L (98-107) Carbon Dioxide Level 25 mmol/L (21-32) Anion Gap 11 (6-14) Blood Urea Nitrogen 7 mg/dL (8-26) Creatinine 1.0 mg/dL (0.7-1.3) Estimated GFR (Cockcroft-Gault) 70.7 BUN/Creatinine Ratio 7 (6-20) Glucose Level 108 mg/dL (70-99) Calcium Level 8.6 mg/dL (8.5-10.1) Total Bilirubin 0.7 mg/dL (0.2-1.0) Aspartate Amino Transf (AST/SGOT) 103 U/L (15-37) Alanine Aminotransferase (ALT/SGPT) 469 U/L (16-63) Alkaline Phosphatase 102 U/L (46-116) Total Protein 6.4 g/dL (6.4-8.2) Albumin 2.7 g/dL (3.4-5.0) Albumin/Globulin Ratio 0.7 (1.0-1.7) Glucose (Fingerstick) 103 mg/dL (70-99) 152 mg/dL (70-99) Microbiology Micro Microbiology 05/05/20 Blood Culture - Preliminary, Resulted NO GROWTH AFTER 3 DAYS... Physical Exams HEENT: Neck Supple W Full Motion Chest: Symmetric Lungs: Other (crackles ) Heart: irregularly irregular (afIb, rate 110-120) Abdomen: Soft N/T Extremities: No Edema Neurology: alert, confused Assessment Assessment 1. Leukocytosis, lactic acidosis, sepsis 2. Acute on chronic probable diastolic CHF 3. CAD s/p CABG. Clinically stable, CP free 4. Hypertension; controlled 5. SSS s/p PPM; 6. PAFIB; rate mildly elevated 7. Hyperlipidemia; LDL 65 8. Diabetes, II 9. Transaminitis 10. Metabolic encephalopathy with underlying dementia 11. Recent COVID 01/28 12. Hypokalemia; being replaced Recommendations Add metoprolol for rate control as BP allows ASA therapy Mild diuresis Discontinue IVFs when able to take oral Continue current secondary prevention measures Outpatient echo to assess LV systolic function Supportive care DARBY LO APRN May 09, 2020 08:05
[2020-05-09] MEDS ORDERED: FUROSEMIDE 40 MG/4 ML VIAL IVP ONE (08:30)
[2020-05-09] MEDS: METOPROLOL TARTRATE 5 MG/5 ML VIAL. IV SCH ×3 (09:01→19:23)
[2020-05-09] MEDS: POTASSIUM CHLORIDE 10MEQ 100 ML IV SCH ×2 (09:01→11:00)
[2020-05-09] MEDS ORDERED: DEXTROSE 50% 25 GM / 50ML DISP.SYRIN. IV PRN (15:30)
[2020-05-09] MEDS: INSULIN LISPRO 300 UNITS/3 ML VIAL. SQ SCH ×2 (17:07→23:35)
--- NOTE | 2020-05-09 20:03 | PN ---
DATE: 05/09/2020 SUBJECTIVE: The patient is resting, slightly propped up in bed, in no apparent distress. He apparently has been extremely agitated, restless this morning, requiring Zyprexa Zydis. He was seen yesterday by the speech therapist who recommended n.p.o. status, although at least on Saturday and Saturday he was able to swallow thin liquid. PHYSICAL EXAMINATION: GENERAL: When I examined him this morning, he looked well and was clearly in no apparent respiratory distress. There is no pallor, jaundice, cyanosis or thyromegaly. No jugular venous distention. No lower limb edema. VITAL SIGNS: His heart rate was 130, blood pressure was 166/72. His temperature was 98.4, respiratory rate was 18 and oxygen saturation was 98% on room air. HEENT: Showed normocephalic, atraumatic. NECK: Supple. HEART: Showed normal first and second heart sounds. No gallop or murmur. CHEST: Clear to auscultation. No crepitation or rhonchi. ABDOMEN: Scaphoid, soft, nontender. NEUROLOGICALLY: He is somewhat more confused today. Otherwise, all his cranial nerves are intact. He moves extremities spontaneously. His intake 1250, output was 2200. LABORATORY DATA: His white cell count is down to 12,300, hemoglobin 12, hematocrit 38, MCV 90 and platelet count 204,000. His chemistry showed a serum sodium of 142, potassium 3.4, chloride 106, bicarbonate 26, anion gap of 11, BUN 7, creatinine 1, estimated GFR was 70 mL per minute, his glucose 108, calcium was 8.6. Total bilirubin and alkaline phosphatase normal. AST, ALT slightly elevated. Total protein 6.4, albumin was 2.7. ASSESSMENT: 1. Sepsis, although the source of infection is not clear as his urinalysis was unremarkable. His chest x-ray showed mild interstitial opacities bilaterally. 2. Acute kidney injury that has improved. 3. Type B lactic acidosis and perhaps diabetic ketoacidosis, for which he was on IV fluid and insulin drip. His white cell count has improved. His kidney function has improved. Unfortunately, he has continued to be very agitated, restless and in fact, this morning he required Zyprexa Zydis. The plan is to continue with IV Zosyn. We will attempt to discontinue the IV fluid. We will monitor him and I have been discussed with the family the further goals of care. RAGHAVENDRA ORTIZ MD DR: ANTHONY/luis m JOB#: [id number] / [id number]
[2020-05-10] VITALS (17 sets, daily range): BP systolic 111–174; BP diastolic 57–116
[2020-05-10] MEDS: METOPROLOL TARTRATE 5 MG/5 ML VIAL. IV SCH ×4 (00:12→21:12)
[2020-05-10 07:03] LABS: HEMATOCRIT 37.4 % (39.0-53.0); HEMOGLOBIN 12.2 g/dL (13.0-17.5); RED BLOOD COUNT 4.11 x10^6/uL (4.30-5.70); RED CELL DISTRIBUTION WIDTH 13.9 % (11.5-14.5)
[2020-05-10 07:10] LABS: ALBUMIN 2.6 g/dL (3.4-5.0); ALBUMIN/GLOBULIN RATIO 0.7 (1.0-1.7); CALCIUM 8.6 mg/dL (8.5-10.1); CREATININE 1.1 mg/dL (0.7-1.3); GFR 63.3; POTASSIUM 3.7 mmol/L (3.5-5.1); TOTAL BILIRUBIN 1.2 mg/dL (0.2-1.0); TOTAL PROTEIN 6.5 g/dL (6.4-8.2)
--- NOTE | 2020-05-10 07:57 | PDOC ---
CARDIO Progress Notes Date & Time Date of Service DATE: 05/10/20 TIME: 07:55 Time of Evaluation 07:55 Subjective Notes more awake today Vitals Vitals Vital Signs Date Time Temp Pulse Resp B/P (MAP) Pulse Ox O2 Delivery O2 Flow Rate FiO2 05/10/20 06:03 103 159/86 05/10/20 06:00 17 99 Room Air 05/10/20 04:00 2.0 05/09/20 16:00 98.5 Weight Weight [ ] Input and Output I.O. Intake and Output 05/10/20 07:00 Intake Total 1300 ml Output Total 4175 ml Balance -2875 ml Intake Oral 0 ml IV Total 1300 ml Output Urine Total 4175 ml Laboratory Labs Laboratory Tests Test 05/08/20 08:40 05/08/20 09:43 05/08/20 10:46 05/08/20 11:49 Glucose (Fingerstick) 237 mg/dL (70-99) 204 mg/dL (70-99) 138 mg/dL (70-99) 101 mg/dL (70-99) Test 05/08/20 12:46 05/08/20 13:49 05/08/20 14:50 05/08/20 15:53 Glucose (Fingerstick) 92 mg/dL (70-99) 83 mg/dL (70-99) 93 mg/dL (70-99) 124 mg/dL (70-99) Test 05/08/20 16:57 05/08/20 18:04 05/08/20 19:11 05/08/20 20:17 Glucose (Fingerstick) 108 mg/dL (70-99) 161 mg/dL (70-99) 145 mg/dL (70-99) 119 mg/dL (70-99) Test 05/08/20 21:23 05/08/20 22:27 05/08/20 23:34 05/09/20 00:40 Glucose (Fingerstick) 103 mg/dL (70-99) 115 mg/dL (70-99) 158 mg/dL (70-99) 187 mg/dL (70-99) Test 05/09/20 00:41 05/09/20 01:47 05/09/20 03:02 05/09/20 04:08 Glucose (Fingerstick) 177 mg/dL (70-99) 183 mg/dL (70-99) 180 mg/dL (70-99) 158 mg/dL (70-99) Test 05/09/20 05:13 05/09/20 05:42 05/09/20 06:15 05/09/20 07:20 Glucose (Fingerstick) 120 mg/dL (70-99) 103 mg/dL (70-99) 152 mg/dL (70-99) White Blood Count 12.3 x10^3/uL (4.0-11.0) Red Blood Count 4.22 x10^6/uL (4.30-5.70) Hemoglobin 12.3 g/dL (13.0-17.5) Hematocrit 38.0 % (39.0-53.0) Mean Corpuscular Volume 90 fL (79-100) Mean Corpuscular Hemoglobin 29 pg (25-35) Mean Corpuscular Hemoglobin Concent 32 g/dL (31-37) Red Cell Distribution Width 13.9 % (11.5-14.5) Platelet Count 204 x10^3/uL (140-400) Sodium Level 142 mmol/L (136-145) Potassium Level 3.4 mmol/L (3.5-5.1) Chloride Level 106 mmol/L (98-107) Carbon Dioxide Level 25 mmol/L (21-32) Anion Gap 11 (6-14) Blood Urea Nitrogen 7 mg/dL (8-26) Creatinine 1.0 mg/dL (0.7-1.3) Estimated GFR (Cockcroft-Gault) 70.7 BUN/Creatinine Ratio 7 (6-20) Glucose Level 108 mg/dL (70-99) Calcium Level 8.6 mg/dL (8.5-10.1) Total Bilirubin 0.7 mg/dL (0.2-1.0) Aspartate Amino Transf (AST/SGOT) 103 U/L (15-37) Alanine Aminotransferase (ALT/SGPT) 469 U/L (16-63) Alkaline Phosphatase 102 U/L (46-116) Total Protein 6.4 g/dL (6.4-8.2) Albumin 2.7 g/dL (3.4-5.0) Albumin/Globulin Ratio 0.7 (1.0-1.7) Test 05/09/20 08:23 05/09/20 09:27 05/09/20 10:30 05/09/20 11:34 Glucose (Fingerstick) 189 mg/dL (70-99) 187 mg/dL (70-99) 143 mg/dL (70-99) 129 mg/dL (70-99) Test 05/09/20 17:03 05/09/20 23:28 05/10/20 05:34 Glucose (Fingerstick) 266 mg/dL (70-99) 316 mg/dL (70-99) Sodium Level 139 mmol/L (136-145) Potassium Level 3.7 mmol/L (3.5-5.1) Chloride Level 101 mmol/L (98-107) Carbon Dioxide Level 22 mmol/L (21-32) Anion Gap 16 (6-14) Blood Urea Nitrogen 10 mg/dL (8-26) Creatinine 1.1 mg/dL (0.7-1.3) Estimated GFR (Cockcroft-Gault) 63.3 BUN/Creatinine Ratio 9 (6-20) Glucose Level 329 mg/dL (70-99) Calcium Level 8.6 mg/dL (8.5-10.1) Total Bilirubin 1.2 mg/dL (0.2-1.0) Aspartate Amino Transf (AST/SGOT) 36 U/L (15-37) Alanine Aminotransferase (ALT/SGPT) 327 U/L (16-63) Alkaline Phosphatase 95 U/L (46-116) Total Protein 6.5 g/dL (6.4-8.2) Albumin 2.6 g/dL (3.4-5.0) Albumin/Globulin Ratio 0.7 (1.0-1.7) Microbiology Micro Microbiology 05/05/20 Blood Culture - Preliminary, Resulted NO GROWTH AFTER 4 DAYS... Physical Exams HEENT: Neck Supple W Full Motion Chest: Symmetric Lungs: Other (fine expiratory wheezes) Heart: irregularly irregular (afIb, rate 110-120) Abdomen: Soft N/T Extremities: No Edema Neurology: alert, confused Assessment Assessment 1. Leukocytosis, lactic acidosis, sepsis. 2. Acute on chronic probable diastolic CHF; improved s/p IV Lasix. Good UOP 3. CAD s/p CABG. Clinically stable, CP free 4. Hypertension; controlled 5. SSS s/p PPM; 6. PAFIB; remains in AFIB, rate controlled 7. Hyperlipidemia; LDL 65 8. Diabetes, II 9. Transaminitis; better 10. Metabolic encephalopathy with underlying dementia 11. Recent COVID 01/28 12. Hypokalemia; replaced Recommendations Continue metoprolol for rate control Swallow eval today ASA therapy when able to take oral Additional Lasix PRN Continue current secondary prevention measures Outpatient echo to assess LV systolic function Ongoing antibiotic therapy as per IM Supportive care DARBY LO APRN May 10, 2020 07:57
[2020-05-10] MEDS: LACTOBACILLUS RHAMNOSUS GG 1 CAPSULE. PO SCH ×2 (09:00→21:00)
[2020-05-10] MEDS: ASPIRIN ENTERIC COATED 81 MG TABLET.DR. PO SCH (09:00)
[2020-05-10] MEDS: MEROPENEM 500 MG in IV NORMAL SALINE 50ML 50 ML IV SCH ×2 (10:38→21:11)
--- NOTE | 2020-05-10 12:29 | RAD ---
EXAMINATION: BARIUM SWALLOW WITH VIDEOFLUOROSCOPY CLINICAL HISTORY: Dysphagia TECHNIQUE: DG VIDEO SWALLOW STUDY -- 0 images Fluoroscopy Time: 3.0 minutes COMPARISON: None TECHNIQUE/FINDINGS/ IMPRESSION: Modified barium swallow was performed in conjunction with Speech Pathology with fluoroscopic assistan ce provided by the radiologist. Patient was given various barium substrates for the speech pathologis t to evaluate the oropharyngeal phases of swallowing. Aspiration with thin and likely honey thick consistencies. See speech pathologist report for further details. Electronically signed by: Parrish Ibarra DO (05/10/2020 12:27 PM) [id number]
[2020-05-10] MEDS: POTASSIUM CL 20MEQ D5-0.45NACL 1,000 ML IV SCH ×2 (13:03→21:11)
[2020-05-10] MEDS ORDERED: DEXTROSE 50% 25 GM / 50ML DISP.SYRIN. IV PRN (14:30)
[2020-05-10] MEDS ORDERED: INSULIN LISPRO 300 UNITS/3 ML VIAL. SQ PRN (14:30)
--- NOTE | 2020-05-10 15:36 | PN ---
DATE: 05/10/2020 SUBJECTIVE: The patient is resting, slightly propped up in bed, in no apparent respiratory distress. He is awake, alert, but confused. He apparently failed his swallowing evaluation and the speech therapist recommended n.p.o. status and to consider oral modes of nutrition. I have spoken to his daughter at length gave her to appointment of being aggressive and placing a gastrostomy tube and/or allowing nature to take its course. She wanted to come and see him and I spoke with our dialysis social worker and she will probably make the arrangements for her to come and see her dad here. PHYSICAL EXAMINATION: GENERAL: When I saw him this afternoon, he looked pale, but no jaundice, cyanosis or thyromegaly. No jugular venous distention or limb edema. VITAL SIGNS: Her heart rate was 94, blood pressure was 154/86, temperature was 97.7, respiratory rate was 18 and oxygen saturation was 98% on room air. HEENT: Showed normocephalic, atraumatic. NECK: Supple. HEART: Showed normal first and second heart sounds. No gallop, rub or murmur. CHEST: Clear to auscultation. No crepitation or rhonchi. ABDOMEN: Scaphoid, soft, nontender. NEUROLOGIC: He is awake, alert, but very confused. He moves extremities without difficulty. He has an indwelling Meneses catheter. His intake was 1050, output was 1125. LABORATORY DATA: His serum sodium was 139, potassium 3.7, chloride 101, bicarbonate 22, anion gap of 16, BUN 10, creatinine 1.1, estimated GFR was 63 mL per minute. His glucose was 329, calcium was 8.6. Total bilirubin, AST, alkaline phosphatase normal. ALT slightly elevated. Total protein 6.5, albumin 2.6. Her white cell count was 17,000, hemoglobin 12.7, hematocrit 37, MCV 91, and platelet count of 185,000. ASSESSMENT: 1. Sepsis, the source of which is not clear; however, the patient responded very well. 2. Acute kidney injury that has improved. 3. Type B lactic acidosis, perhaps diabetic ketoacidosis, for which he was on IV fluid and insulin drip, has resolved. His white cell count has improved. His kidney function has improved. Unfortunately, he continued to have severe dysphagia and has failed his video swallowing evaluation. PLAN: My plan is to continue with IV fluid, continue with IV meropenem for now, continue with IV metoprolol to control the heart rate and blood pressure. Await the family decision and as far as his goal of care. RAGHAVENDRA ORTIZ MD DR: ANTHONY/luis m JOB#: [id number] / [id number]
[2020-05-10] MEDS: INSULIN LISPRO 300 UNITS/3 ML VIAL. SQ SCH (18:00)
[2020-05-11] VITALS: BP 166/86
[2020-05-11] MEDS: INSULIN LISPRO 300 UNITS/3 ML VIAL. SQ SCH ×2 (02:48→06:05)
[2020-05-11 03:00] VITALS: BP 160/83
[2020-05-11 04:05] VITALS: BP 159/88
[2020-05-11 06:12] VITALS: BP 153/78
[2020-05-11 06:27] VITALS: BP 153/78
[2020-05-11] MEDS: METOPROLOL TARTRATE 5 MG/5 ML VIAL. IV SCH ×2 (06:27)
[2020-05-11] MEDS: POTASSIUM CL 20MEQ D5-0.45NACL 1,000 ML IV SCH (06:44)
[2020-05-11] MEDS: ASPIRIN ENTERIC COATED 81 MG TABLET.DR. PO SCH (08:00)
[2020-05-11] MEDS: MEROPENEM 500 MG in IV NORMAL SALINE 50ML 50 ML IV SCH (08:00)
--- NOTE | 2020-05-11 08:29 | PDOC ---
CARDIO Progress Notes Date & Time Date of Service DATE: 05/11/20 TIME: 08:28 Time of Evaluation 08:28 Subjective Notes confused Vitals Vitals Vital Signs Date Time Temp Pulse Resp B/P (MAP) Pulse Ox O2 Delivery O2 Flow Rate FiO2 05/11/20 06:27 116 153/78 05/11/20 06:12 97.8 29 98 Room Air 05/10/20 04:00 2.0 Weight Weight [ ] Input and Output I.O. Intake and Output 05/11/20 07:00 Output Total 2650 ml Balance -2650 ml Output Urine Total 2650 ml Laboratory Labs Laboratory Tests Test 05/09/20 09:27 05/09/20 10:30 05/09/20 10:40 05/09/20 11:34 Glucose (Fingerstick) 187 mg/dL (70-99) 143 mg/dL (70-99) 129 mg/dL (70-99) Coronavirus (PCR) Not detected (Not Detected) Test 05/09/20 17:03 05/09/20 23:28 05/10/20 05:34 05/10/20 14:13 Glucose (Fingerstick) 266 mg/dL (70-99) 316 mg/dL (70-99) 380 mg/dL (70-99) White Blood Count 17.0 x10^3/uL (4.0-11.0) Red Blood Count 4.11 x10^6/uL (4.30-5.70) Hemoglobin 12.2 g/dL (13.0-17.5) Hematocrit 37.4 % (39.0-53.0) Mean Corpuscular Volume 91 fL (79-100) Mean Corpuscular Hemoglobin 30 pg (25-35) Mean Corpuscular Hemoglobin Concent 33 g/dL (31-37) Red Cell Distribution Width 13.9 % (11.5-14.5) Platelet Count 185 x10^3/uL (140-400) Sodium Level 139 mmol/L (136-145) Potassium Level 3.7 mmol/L (3.5-5.1) Chloride Level 101 mmol/L (98-107) Carbon Dioxide Level 22 mmol/L (21-32) Anion Gap 16 (6-14) Blood Urea Nitrogen 10 mg/dL (8-26) Creatinine 1.1 mg/dL (0.7-1.3) Estimated GFR (Cockcroft-Gault) 63.3 BUN/Creatinine Ratio 9 (6-20) Glucose Level 329 mg/dL (70-99) Calcium Level 8.6 mg/dL (8.5-10.1) Total Bilirubin 1.2 mg/dL (0.2-1.0) Aspartate Amino Transf (AST/SGOT) 36 U/L (15-37) Alanine Aminotransferase (ALT/SGPT) 327 U/L (16-63) Alkaline Phosphatase 95 U/L (46-116) Total Protein 6.5 g/dL (6.4-8.2) Albumin 2.6 g/dL (3.4-5.0) Albumin/Globulin Ratio 0.7 (1.0-1.7) Test 05/10/20 16:27 05/10/20 20:05 05/11/20 02:45 05/11/20 05:49 Glucose (Fingerstick) 387 mg/dL (70-99) 396 mg/dL (70-99) 411 mg/dL (70-99) 341 mg/dL (70-99) Microbiology Micro Microbiology 05/05/20 Blood Culture - Final, Complete NO GROWTH AFTER 5 DAYS... Physical Exams HEENT: Neck Supple W Full Motion Chest: Symmetric Lungs: Other (diminished ) Heart: irregularly irregular (afIb, rate 110-120) Abdomen: Soft N/T Extremities: No Edema Neurology: alert, confused Assessment Assessment 1. Leukocytosis, lactic acidosis, sepsis. 2. Acute on chronic probable diastolic CHF; improved s/p IV Lasix. Good UOP 3. CAD s/p CABG. Clinically stable, CP free 4. Hypertension; controlled 5. SSS s/p PPM; 6. PAFIB; remains in AFIB, rate controlled 7. Hyperlipidemia; LDL 65 8. Diabetes, II 9. Transaminitis; better 10. Metabolic encephalopathy with underlying dementia 11. Recent COVID 01/28 12. Hypokalemia; replaced Recommendations Continue metoprolol for rate control Plans for home with Hospice Supportive care DARBY LO APRN May 11, 2020 08:29
[2020-05-11] MEDS: LACTOBACILLUS RHAMNOSUS GG 1 CAPSULE. PO SCH (09:00)
--- NOTE | 2020-05-11 11:49 | DS ---
DATE OF DISCHARGE: 05/11/2020 ATTENDING PHYSICIAN: Dr. Madrid. FINAL DISCHARGE DIAGNOSES: 1. Sepsis syndrome, source etiology unclear. He did respond to antibiotics. 2. Acute kidney injury, improved. 3. Lactic acidosis. 4. Type 2 diabetes. 5. Generalized debilitation. 6. Obtundation. 7. Failure to thrive. HISTORY AND PHYSICAL: This is an 85-year-old gentleman who is in decline. He has a daughter who is a power of corporate associate attorney, he is not eating, he cannot take care of himself. He was admitted with altered mentation and generalized debilitation. PHYSICAL EXAMINATION: Please see the dictated note. PERTINENT LABORATORY AND X-RAY STUDIES: Blood cultures were negative after 5 days. Admission hemoglobin was 12.2 g/dL with white count of 29,200 due to a leukemoid reaction. Subsequent daily serial white count improved to 12,300. Chemistry panel sugars in the mid 300s. Toxicology acetone level negative. Serology negative for coronavirus. COURSE IN THE HOSPITAL: The patient was treated accordingly antibiotics, IV hydration. He was still very confused, agitated, required ____ for prevention of pulling out his IV. He was not eating. The daughter was allowed to come in and see him. It was their decision then for comfort measures. He was made a DNR. Hospice services were called and arrangements on the 5th hospital day with the patient go back to his assisted living facility with the hospice care. His discharge meds will include the following, they have been simplified. He received a full course of antibiotics. We will continue his aspirin, Tylenol, glimepiride, losartan, metformin, metoprolol, and Januvia dose is unchanged. His prognosis is poor. He was discharged then for end of life hospice care and comfort measures. TOTAL DISCHARGE TIME SPENT: 39 minutes. PHUONG CARL MD DR: BRITNEY/luis m JOB#: [id number] / [id number] RAGHAVENDRA Lopez MD
== END 2020-05-11 15:39 | disposition hospice, home (50) | DRG 871 ==
LOC: ER 11:54 → ICU 15:32
PROVIDERS: ADMIT Internal Medicine; ATTEND Internal Medicine
DX: A41.9 Sepsis, unspecified organism (principal); E11.10 Type 2 diabetes mellitus with ketoacidosis without coma; G93.41 Metabolic encephalopathy; R65.21 Severe sepsis with septic shock; I50.33 Acute on chronic diastolic (congestive) heart failure; E87.2 Acidosis; N17.9 Acute kidney failure, unspecified; E78.00 Pure hypercholesterolemia, unspecified; E78.5 Hyperlipidemia, unspecified; E87.6 Hypokalemia; F02.80 Dementia in other diseases classified elsewhere, unspecified severity, without behavioral disturbance, psychotic disturbance, mood disturbance, and anxiety; G30.9 Alzheimer's disease, unspecified; I11.0 Hypertensive heart disease with heart failure; I25.10 Atherosclerotic heart disease of native coronary artery without angina pectoris; I48.0 Paroxysmal atrial fibrillation; I49.5 Sick sinus syndrome; R13.10 Dysphagia, unspecified; R62.7 Adult failure to thrive; F41.9 Anxiety disorder, unspecified; R74.01 Elevation of levels of liver transaminase levels; Z20.822 Contact with and (suspected) exposure to COVID-19; Z51.5 Encounter for palliative care; Z66 Do not resuscitate; Z79.82 Long term (current) use of aspirin; Z85.46 Personal history of malignant neoplasm of prostate; Z86.19 Personal history of other infectious and parasitic diseases; Z86.73 Personal history of transient ischemic attack (TIA), and cerebral infarction without residual deficits; Z95.0 Presence of cardiac pacemaker; Z95.1 Presence of aortocoronary bypass graft; Z98.1 Arthrodesis status; Z88.5 Allergy status to narcotic agent; Z88.0 Allergy status to penicillin; Z86.16 Personal history of COVID-19
CPT/HCPCS: 36415; 70450; 71045; 71250; 74176; 74230; 80048; 80053; 81001; 82010; 82803; 82947; 83605; 83880; 84100; 84145; 85007; 85025; 85027; 87040; 93005; 96365; 96367; 96375; J0780; J1160; J1815; J1940; J2020; J2185; J3480; J3490; U0003; 92610; 92611; 99285-25; J7030